=== PATIENT | male | born 1970 | race African-American/Black ===

== ENCOUNTER 2024-05-13 12:14 | Emergency (ER) | payer OTHER, SELFPAY ==
--- OUTSIDE RECORDS SUMMARY | 2024-05-13 12:18 | XMS_ITS | Referral Summary ---
Author Organization [facility] Address [address] [place] [address] Care Team Providers Care Papier Mache' Molder Name Role Phone Cody Rice APRN-BILINGUAL TEACHER AIDE Primary Care Pro vider Source Comments [facility],non-owned Affiliates and Associated Physician Practices is amultiple site organization consisting of ambulatory clinics and hospital sitesin [place], [place], [place] and [place]. This disclosure is being madepursuant to the Care Everywhere program and may not contain all information available regarding this patient. Last updated 18.[facility] Allergies No known active allergies Medications * Be aware that medications may not be up to date on this document. Alwaysverify current medications with the patient. Medication Sig Dispensed Refills Start Date End Date Status Thiamine HCl 100 MG Take by mouth DAILY. 02/12/2016 Active levETIRAcetam (KEPPRA) 500 MG tablet Take 500 mg by mouth BID. 60 tablet 3 01/15/2016 Active Additional Information Patient not taking.Reported on 11/18/2023 ibuprofen (MOTRIN) 200 MG tablet Take 200 mg by mouth q6h PRN (Pain). 01/09/2016 Active HYDROcodone-acetami nophen (Decorah) 5-325 MG tablet Take 1 (one) tablet by mouth every 6 hours as needed 11/11/2023 Active naproxen (Naprosyn) 500 MG tablet Take 1 (one) tablet by mouth 2 times daily with morning and evening meal 10/15/2023 Active citalopram (CeleXA) 20 MG tablet Take 1 (one) tablet by mouth as needed 08/29/2023 Active Active Problems Problem Noted Date Diagnosed Date Nontraumatic subdural hemorrhage 01/09/2016 Immunizations Name Administration Dates Next Due FLU VACCINE TRI IIV3 SPLIT P F IM (FLUVIRIN) 01/10/2016,03/03/2015 HIB VACCINE 02/26/2016 INFLUENZA VACCINE, QUADR. (F LUZONE; FLULAVAL; FLUARIX; AFLURIA QUADRIVALENT; 6MO+), 0.5 ML (IIV4) 01/27/2023,01/14/2023,05/24/2020,2019,03/09/2018 PNEUMOCOCCAL PCV VACCINE 11/11/2023 PNEUMOCOCCAL PPSV23 01/10/2016 TDAP (7yrs+) 11/18/2015 Td (Adult), 2 Lf Tetanus Tox oid, Adsorbed, Pf 01/02/2020 Social History Tobacco Use Types Packs/Day Years Used Date Smoking Tobacco: Former Cigars Smokeless Tobacco: Never Tobacco Cessation:Counseling Given: Not Answered Alcohol Use Standard Drinks/Week Comments Not Currently 84 (1 standard drink = 0.6 oz pu re alcohol) Sex and Gender Information Value Date Recorded Sex Assigned at Not on file Gender Identity Not on file Sexual Orientation Not on file Last Filed Vital Signs Vital Sign Reading Time Taken Comments Blood Pressure 119/58 11/18/2023 8:48 AM CDT Pulse 81 11/18/2023 8:48 AM CDT Temperature 36.7 ??C (98 ??F) 02/12/2016 11:48 AM CDT Respiratory Rate 18 01/15/2016 12:56 PM CDT Oxygen Saturation 95% 02/12/2016 11:48 AM CDT Inhaled Oxygen Concentration - - Weight 79.2 kg (174 lb 9.6 oz) 11/18/2023 8:48 A M CDT Height 175.3 cm (5' 9 ) 11/18/2023 8:48 AM CDT Body Mass Index 25.78 11/18/2023 8:48 AM CDT Plan of Treatment Not on file Procedures Procedure Name Priority Date/Time Associated Diagnosis Comments BASIC METABOLIC PANEL (CALCIUM TOTAL) Routine 01/15/2016 5:10 AM CDT from Last 3 Months or Most Recently Relevant to Health Maintenance Results * (ABNORMAL) BASIC METABOLIC PANEL (CALCIUM TOTAL) (01/15/2016 5:10 AM CDT) BUN 12 7 - 26 mg/dL [facility] Creatinine 1.1 0.6 - 1.2 mg/dL [facility] Sodium 142 136 - 145 mmol/L [facility] Potassium 3.9 3.5 - 4.5 mmol/L [facility] Chloride 111(H) 98 - 107 mmol/L [facility] CO2 24 22 - 29 mmol/L [facility] Glucose 92 70 - 115 mg/dL [facility] Calcium 10.0 8.4 - 10.2 mg/dL [facility] Anion Gap 11 8 - 18 [facility] BUN/Creatinine Ratio 11 7 - 23 [facility] Osmolality Calculated 293 270 - 300 mOsm/kg [facility] eGFR >60 >60 mL/min/1.7 3 m2 [facility] Blood specimen (specimen) BLOOD SPECIMEN / Unknown 01/15/2016 5:10 AM CDT 01/15/2016 5:15 AM CDT Jose A Marlow MD LAB - CHEMISTRY ORD ERABLES [facility] [address] [phone] from Last 3 Months or Most Recently Relevant to Health Maintenance Administered Medications Care Teams Papier Mache' Molder Relationship Specialty Start Date End Date Cody Rice, REPAIR ELECTRIC MOTOR ASSEMBLER-BILINGUAL TEACHER AIDE [address] [address] PCP - General Nurse Practitioner 11/18/23
--- OUTSIDE RECORDS SUMMARY | 2024-05-13 12:19 | XMS_ITS | Patient Health Record ---
Author Organization [facility] Address [address] [place] [address] Care Team Providers Care Estimate Clerk Name Role Phone Carolina Edmonds Primary Care Provider Raj Cavazos Unavailable [phone] Joao Jj Unavailable [phone] Jazmin Erazo Unavailable [phone] Maximus Childs Unavailable [phone] Caro Zarate Unavailable [phone] Allergies Allergen (clinical drug ingredient) Drug/Non Drug Allergy documented on EMR Reaction Allergy Type Onset Date Status No Known Drug Allergy Unknown Drug Allergy Active Results Component Value Reference Range Notes QuantiFERON-TB Gold Plus Reviewed date:04/30/2024 12:16:27 PM Interpretation:Negative Performing Lab:[facility], [address] [facility], Phone - [phone], Director - Ricsteffanie Notes/Report: QuantiFERON Incubation Incubation performed. QuantiFERON-TB Gold Plus Negative Negative No response to M tuberculosis antigens detected. Infection with M tuberculosis is unlikely, but high risk individuals should be considered for additional testing (ATS/IDSA/CDC Clinical Practice Guidelines, 2017). The reference range is an Antigen minus Nil result of <0.35 IU/mL. Chemiluminescence immunoassay methodology QuantiFERON Criteria QuantiFERON-TB Gold Plus is a qualitative indirect test for M tuberculosis infection (including disease) and is intended for use in conjunction with risk assessment, radiography, and other medical and diagnostic evaluations. The QuantiFERON-TB Gold Plus result is determined by subtracting the Nil value from either TB antigen (Ag) value. The Mitogen tube serves as a control for the test. QuantiFERON TB1 Ag Value 0.00 QuantiFERON TB2 Ag Value 0.00 QuantiFERON Nil Value 0.00 QuantiFERON Mitogen Value >10.00 Reason For Referral Reason Homeless and needs r esources. States that he has trouble getting to the pharmacy to burr picker his medications. Preferred [phone] Diagnosis 1 Bipolar 2 disorder ( F31.81) Referral Organization [facility] Referring Provider First Name Carolina Referring Provider Last Name Kendal Referring Provider Speciality Psychiatry Referred Provider Specialty [facility] Clinical Notes [facility] 06/16/2023 02:09:02 PM >HN PW attempted to contact consumer regarding referral. VM left requesting a return call., Melanie Lofton 06/17/2023 01:27:17 PM > Staff SHERIDAN attempts to contact Consumer. No reply at this time., Marine Do 06/20/2023 10:55:25 AM >HN PW attempted to contact consumer regarding referral. Received following message, Diana, mailbox is full. , Juan José Salvador 06/21/2023 11:08:44 AM >Client was unable to be reached, no option to leave a voicemail. Client is listed as homeless so a letter is not able to be sent., Melanie Lofton 06/23/2023 01:40:00 PM >Staff SHERIDAN attempts to contact Consumer with both numbers on file. No reply at this time. Message left. If no reply is obtained by 2 weeks time from June 19, referral will be closed on July 03., Juan José Salvador 06/28/2023 01:18:56 PM >Client was unable to be reached at both numbers listed, left a voicemail., , [facility] 06/30/2023 09:14:55 AM >Attempt to contact Consumer. Unable to reach Consumer at this time. Referral Priority Routine Reason screening Colonoscop y Diagnosis 1 Encounter for screen ing for malignant neoplasm of colon (Z12.11) Diagnosis 2 Contact with and (madrid spected) exposure to other communicable diseases (Z20.89) Referral Organization [facility] Referring Provider First Name Joao Referring Provider Last Name Jj Referring Provider Speciality Internal M edicine Referred Provider Specialty Gastroentero logy General Notes Samia Eldridge 12/2023 11:28:58 AM > Referral to [facility]., Samia Eldridge 08/25/2023 11:32:43 AM > letter unable to be mailed due to homeless status, Samia Eldridge 08/26/2023 08:05:09 AM >Returned not in network. Insurance updated, refaxed. Clinical Notes [facility], [facility], [address], [place] [address], , Referral Priority Routine Medications Medication SIG (Take, Route, Frequency, Duration) Notes Start Date End Date Status traMADol HCl 50 MG 1 tablet as needed Orally every 8 hours Active hydrOXYzine HCl 25 MG two tablets Orally every 4 hours as needed for 30 days Active Acetaminophen 160 MG/5ML 20 ML Orally every 4 hours for 15 days As needed for pain on unit 05/03/2024 Active Multivitamin - 1 tablet Orally Once a day for 30 days Active Citalopram Hydrobromide 20 MG 1 tablet Orally Once a day for 30 days Active OLANZapine 10 MG 1 tablet Orally Once a day for 30 days Active traZODone HCl 50 MG 1 tablet at bedtime as needed Orally Once a day for 30 days Active Melatonin 5 MG 1 tablet in the even ing Orally Once a day for 30 days Active Social History Tobacco Use: Social History Observation Description Date Details (start date - stop date) Never Smoker NA - NA Sex Assigned At : Social History Observation Description Sex Assigned At Male Dont use, Tobacco Use/Smoking Question Answer Notes Are you a current smoker PRAPARE Question Answer Notes Are you a refugee? No What country are you from? [place] Date Completed/Updated: 08/17/2023 What is your current housing situation? I do not have housing (staying with others, in a hotel, in a senior living, living outside on the street, on a beach, or in a park) Are you worried about losing your housing? Yes What is the highest level of school that you have finished? High school diploma or GED What is your current work situation? Oth erwise unemployed but not seeking work (ex. 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 Check all that apply Clothing,Food Has lack of transportation k ept you from medical appointments, meetings, work or from getting things needed for daily living? Yes, it has kept me from medical appointments or from getting my medications,Yes, it has kept me from non-medical meetings, appointments, work, or getting things needed for daily living How often do you see or talk to people that you care about and feel close to? (For example: talking to friends on the phone, visiting friends or family, going to amish or club meetings) More than 5 times a week How stressed are you? Stress is when someone feels tense, nervous, anxious, or can\t sleep at night because their mind is troubled Very much In the past year have you sp ent more than 2 nights in a row in a [place] [facility], [facility], [facility], or juvenile correctional facility? Yes Do you feel physically and e motionally safe where you currently live? No In the past year, have you b een afraid of your partner or ex-partner? No What was your release date? 11/17/2023 PRAPARE Score: 1 Tobacco Control (Standard) Question Answer Notes Tobacco use: Nonsmoker Problems Problem Type SNOMED Code ICD Code Onset Dates Problem Status W/U Status Risk Notes Problem Malignant tumor of larynx (600827301) Malignant neoplasm of larynx, unspecified (C32.9) Active confirmed Problem Otitis externa (2529270) Otitis externa (H60.90) Active confirmed Problem Bipolar 2 disorder (64467616) Bipolar 2 disorder (F31.81) 04/27/19 25 Active confirmed Problem Disorder caused by alcohol (disorder) (539001830) Alcohol use disorder (F10.99) 04/27/19 25 Active confirmed vs alcohol induced mood disorder Problem 12148197 Depression, unspecified depression type (F32.9) Active confirmed Problem [id number] Obesity (BMI 30.0-34.9) (E66.9) Active confirmed Problem Tobacco use (260755385) Tobacco use disorder (F17.200) Active confirmed Problem 12784975 Hypertension, unspecified type (I10) 11/08/19 18 Active confirmed Vital Signs Heart Rate 103 /min 04/26/2024 Respiratory Rate 18 /min 04/26/2024 Blood pressure diastolic 74 mm Hg 04/26/2024 Oximetry 96 % 04/26/2024 Height 69 in 04/26/2024 Blood pressure systolic 106 mm Hg 04/26/2024 Weight 145 lb 2 oz lbs 04/26/2024 BMI 21.43 kg/m2 04/26/2024 Encounters Encounter Location Date Provider Diagnosis [facility] [address] [place] [address] 06/16/2023 Carolina Edmonds Bipolar 2 disorder F31.81 [facility] [address] [place] [address] 08/17/2023 Raj Cavazos Nutritional counseling Z71.3 ; Routine physical examination Z00.00 and Overweight E66.3 [facility] [address] [place] [address] 08/17/2023 [facility] [place] [address] 08/18/2023 Carolina Edmonds Bipolar 2 disorder F31.81 [facility] [address], [place] [address] 09/01/2023 [facility] [place] [address] 04/26/2024 Caro Zarate Adult general medical exam Z00.00 ; Alcohol use disorder F10.99 and Malignant neoplasm of larynx, unspecified C32.9 [facility] [address], [place] [address] 04/27/2024 Maximus Childs Alcohol use disorder F10.99 and Bipolar 2 disorder F31.[address] [place] [address] 08/17/2023 Joao Jj Encounter for screening for malignant neoplasm of colon Z12.11 and Contact with and (suspected) exposure to other communicable diseases Z20.[address] [place] [address] 08/25/2023 [facility]min [facility] [address] [place] [address] 09/13/2023 [facility] [address] [place] [address] 09/14/2023 [facility] [address] [place] [address] 09/19/2023 Jazmin [facility] [address] [place] [address] 09/21/2023 [facility] [address] [place] [address] 09/29/2023 [facility] [address] [place] [address] 10/05/2023 [facility]az[facility] [place] [address] [place] [address] 10/18/[address] [facility] [place] [address] 11/17/2023 [facility] [address], [place] [address] 04/27/2024 Maximus Childs [place] [address] [place] [address] 05/03/2024 Caro Short Throat pain R07.0 Assessments Encounter Date Diagnosis (ICD Code) Assessment Notes Treatment Notes Treatment Clinical Notes Section Notes 05/03/2024 Throat pain (ICD-10 - R07.0) 04/27/2024 Bipolar 2 disorder (ICD-10 - F31.81) 04/27/2024 Alcohol use disorder (ICD-10 - F10.99) vs alcohol induced mood disorder Today's visit: Patient is a 54-year-old male who presents for a psychiatric follow-up over Zoom and is located in [place], is a transfer Dr. Carolina Edmonds [facility] and during this appt was continued on Trazodone 50 mg PRN, melatonin 5 m PRN, Olanzapine 10 mg, Celexa 20 mg, and hydroxyzine. PHQ-9 score of 6, ROSHAN-7 score of 3, MDQ with 8 yes. Currently prescribed same medications. Reports depressive symptoms in the setting of medical diagnosis as well as ongoing alcohol use disorder. Reports prevoius AH related to tumor news, pt appears to be a fair historian and may be evasive with some questions but will attempt to clarify diagnoses during future appts. Will continue current medications as prescribed, pt does not wish to make any changes. Encourage engagement in residential alcohol use treatment following CRU. Collaborating with medical provider Caro zarate regarding tramadol for increased risk of sertonin syndrome; he denies any sx presently or side effects from medications - will continue to monitor. Unable to complete full AIMS due to nature of appt, denies any irregular muscle movements or facial tics; no irregular movements observed during Zoom appt. No acute safety concerns the time of this appt, he is agreeable to treatment plan and was provided an opportunity to ask questions. May self-administer medications or be administered own oral medications per [facility] protocols. Provided informed consent with understanding of side effects, adverse effects, risks and benefits as well as alternative treatments as previously discussed and with the above recommended medications & other aspects of the treatment program. Agrees to return sooner if symptoms worsen or suicidal or homicidal ideations occur. 04/26/2024 Alcohol use disorder (ICD-10 - F10.99) 04/26/2024 Adult general medical exam (ICD-10 - Z00.00) 06/16/2023 Bipolar 2 disorder (ICD-10 - F31.81) 08/18/2023 Bipolar 2 disorder (ICD-10 - F31.81) Continue current medications. Continue services as scheduled. Labs completed recently. May self-administer medications or be administered own oral medications per [facility] protocols. Provided informed consent with understanding of side effects, adverse effects, risks and benefits as well as alternative treatments as previously discussed and with the above recommended medications & other aspects of the treatment program. Agrees to return sooner if symptoms worsen or suicidal or homicidal ideations occur. 08/17/2023 Routine physical examination (ICD-10 - Z00.00) Continue CRU protocol. Encouraged regular f/u with PCP for recommended screenings and physicals. 08/17/2023 Nutritional counseling (ICD-10 - Z71.3) 08/17/2023 Encounter for screening for malignant neoplasm of colon (ICD-10 - Z12.11) 08/17/2023 Contact with and (suspected) exposure to other communicable diseases (ICD-10 - Z20.89) 08/17/2023 Overweight (ICD-10 - E66.3) 04/26/2024 Malignant neoplasm of larynx, unspecified (ICD-10 - C32.9) 08/17/2023 Other Provided case management services to address social determinants of health needs and reduce barriers to health care services. 04/26/2024 Other Continue treatment as recommended by [facility] staff. Encouraged patient to obtain routine medical care with patient's own primary care provider or establish as a patient at [facility] if no current primary care provider. Plan Of Treatment Future Test Test Name Order Date Hemoglobin A1c* 04/27/2024 Lipid Panel w/ Chol/HDL Ratio 04/27/2024 CMP 14 Comprehensive Metabolic Panel* CBC w/DIFF 04/27/2024 Insurance Providers Payer Name Payer Address Payer Phone Subscriber Number Group Number Insured Name Patient Relationship to Insured Coverage Start Date Coverage End Date [facility] [address] [place] [address] [id number] Mario Linares Self - patient is the insured 0 [employer] A[employer] Medicare [address] [address] [place] [address] [id number] [facility] Mario Linares Self - patient is the insured 4 4 Medical (General) History Medical History History ICD Code Depression Bipolar disorder hypertension hyperlipidemia Surgical History Surgery Date(Month/Year) Groin hernia repair 1992 Biopsy on throat 07/2023 Hospitalization History Reason Date(Month/Year) [facility] 07/2023 CRU 02/2022 head injury - [facility] healthcare for 9 months 01/2016 suicidal ideations 03/2017
--- OUTSIDE RECORDS SUMMARY | 2024-05-13 12:19 | XMS_ITS | CONTINUITY OF CARE DOCUMENT ---
Author Name felicita mims Address Unknown Organization [facility] Address [address] [place] [address] Phone [phone] Care Team Providers Care Interdisciplinary Professor Name Role Phone Aga NAQVI, Andrea Unavailable INSURANCE PROVIDERS Payer name Policy type / Coverage type Macy red republican [employer] Medicaid 0 [id number]
--- OUTSIDE RECORDS SUMMARY | 2024-05-13 12:19 | XMS_ITS | Encounter Summary ---
Author Organization [facility] Address [address] [place] [address] Phone Care Team Providers Care Musical Instrument Supervisor Name Role Phone Lauro Peck MD Unavailable [phone] Julian Fitch MD Unavailable [phone] Cody Rice APRN, BRIM PRESSER Primary Care Pr ovider Bassem Newman MD Unavailable Danni Babb Unavailable Unavailable Encounter Details Date Type Department Care Team (Late st Contact Info) Description 04/17/2024 Results Follow-Up [facility] [address] [place] [address] Lorne Hazel RN [place] Social History Tobacco Use Types Packs/Day Years Used Date Smoking Tobacco: Some Days Cigars Smokeless Tobacco: Never Alcohol Use Standard Drinks/Week Comments Yes 0 (1 standard drink = 0.6 oz pure alcohol) say's he bindges and drinks too much from time to time [facility] Utilities Answer Date Recorded In the past 12 months has Social IQ (Social Influence Quotient) electric, gas, oil, or water company threatened to shut off services in your home? No 12/28/2023 Social Connection and Isolat ion Panel [NHANES] Answer Date Recorded In a typical week, how many times do you talk on the phone with family, friends, or neighbors? Twice a week 12/28/2023 How often do you get togethe r with friends or relatives? Twice a week 12/28/2023 How often do you attend chur ch or faith services? More than 4 times per year 12/28/2023 Do you belong to any clubs o r organizations such as restorationist groups, unions, fraternal or athletic groups, or school groups? No 12/28/2023 How often do you attend meet ings of the clubs or organizations you belong to? Never 12/28/2023 Are you , , di vorced, , never , or living with a partner? Never 12/28/2023 AUDIT-C Answer Date Recorded Q1: How often do you have a drink containing alc ohol? 2-4 times a month 12/28/2023 Q2: How many drinks containi ng alcohol do you have on a typical day when you are drinking? 3 or 4 12/28/2023 Q3: How often do you have si x or more drinks on one occasion? Less than monthly 12/28/2023 Overall Financial Resource Strain (CARDIA) Answe r Date Recorded How hard is it for you to pa y for the very basics like food, housing, medical care, and heating? Somewhat hard 12/28/2023 PHQ-2 Answer Date Recorded Total Score - Questions 1-9 0 12/17 [facility] - Occupational Stress Questionnaire Answer Date Recorded Do you feel stress - tense, restless, nervous, or anxious, or unable to sleep at night because your mind is troubled all the time - these days? To some extent 12/28/2023 Exercise Vital Sign Answer Date Recorde d On average, how many days pe r week do you engage in moderate to strenuous exercise (like a brisk walk)? 3 days 12/28/2023 On average, how many minutes do you engage in exercise at this level? 20 min 12/28/2023 Hunger Vital Sign Answer Date Recorded Within the past 12 months, y ou worried that your food would run out before you got the money to buy more. Sometimes true Within the past 12 months, t he food you bought just didn't last and you didn't have money to get more. Sometimes true 02/2024 PRAPARE - Transportation Answer Date Re corded In the past 12 months, has l ack of transportation kept you from medical appointments or from getting medications? Yes 12/17 In the past 12 months, has l ack of transportation kept you from meetings, work, or from getting things needed for daily living? Yes 12/28/2023 Housing Stability Vital Sign Answer Homer e Recorded In the last 12 months, was t here a time when you were not able to pay the mortgage or rent on time? Yes 06/13/2023 In the last 12 months, how many places have you lived? 5 06/13/2023 In the last 12 months, was t here a time when you did not have a steady place to sleep or slept in a chcf (including now)? Yes 06/13/2023 Housing Stability Vital Sign Answer Homer e Recorded In the last 12 months, was t here a time when you were not able to pay the mortgage or rent on time? Yes 12/28/2023 In the past 12 months, how m any times have you moved where you were living? 3 12/28/2023 At any time in the past 12 m [facility], were you homeless or living in a chcf (including now)? Yes 12/28/2023 Sexually Active Control Partners Comments Not Currently Sex and Gender Information Value Date Recorded Sex Assigned at Male 12/03/2023 4:33 AM CDT Legal Sex Male 8:47 PM CDT Gender Identity Male 12/03/2023 4:33 AM CDT Sexual Orientation Not on file documented as of this encounter Plan of Treatment Upcoming Encounters Date Type Department Care Team (Latest Contact Info) Description 05/14/2024 2:30 PM BACK OFFICE MEDICAL ASSISTANT [facility] [address] [place] [id number] Paulina Forde, WINDOWS SUPPORT ENGINEER, BRIM PRESSER [address] [place] [address] Discharge Disposition: Discharged to home or Selfcare 05/17/2024 1:45 PM BACK OFFICE MEDICAL ASSISTANT Physical Therapy [facility] [address], [address] [place] [phone] Kaylen Iglesias, PT [place] Discharge Disposition: Discharged to home or Selfcare documented as of this encounter Goals Goal Patient Goal Type Associated Problems Recent Progress Patient-Stated? Author Make and Keep All Appointments Patient Goals On track( 9:13 AM CDT) Lia Chavez LSW Note: Follow Up Date week of 03/21/2024 - arrange a ride through an agency 1 week before appointment - ask family or friend for a ride - keep a calendar with appointment dates SW CM will help patient obtain Free Ride Bus Pass for [facility] [employer] Why is this important? Part of staying healthy is seeing the doctor for follow-up care. If you forget your appointments, there are some things you can do to stay on track. Notes: ACP visit Patient Goals On track( 9:13 AM CDT) Lia Chavez LSW Note: Follow Up Date Month of 04/10 - complete a living will - name a health care proxy (decision maker) Discusses wishes with my loved ones Notify Care Management when ready to schedule ACP appointment Why is this important? Having a long-term illness can be scary. It can also be stressful for you and your caregiver. These steps may help. Notes: documented as of this encounter Visit Diagnoses Not on filedocumented in this encounter Additional Health Concerns Assessment Noted Time PHQ-9 Depression Total Score: 0 12/28/19 9:51 AM CDT documented as of this encounter Care Teams Musical Instrument Supervisor Relationship Specialty Start Date End Date Cody Rice APRN, BRIM PRESSER [address] [address] PCP - General Advanced Practice Nurse 11/10/23 Lauro Peck MD [address] [place] [address] Consulting Physician Medical Oncology 10/27/23 Julian Fitch MD [address] [place] [address] Consulting Physician Radiation Oncology 10/27/23 Bassem Newman MD [address] [place] [address] Consulting Physician Otolaryngology & Facial Plastic Surgery 11/14/23 Danni Babb [facility] Med Spec 04/10/24 documented as of this encounter
--- OUTSIDE RECORDS SUMMARY | 2024-05-13 12:19 | XMS_ITS | Continuity of Care Document ---
Author Organization [facility] Address [address] [place] [address] Phone Care Team Providers Care Diagnostic Sales Specialist Name Role Phone Eh MANAGER DEMANDSingh Tellon Unavailable Unavailable Allergies, Adverse Reactions, Alerts Substance Reaction Status Criticality No Known Allergies Active No Inform ation Procedures Procedure Date COLLECTION OF VENOUS BLOOD BY VENIPUNCTU RE OFFICE/OUTPATIENT VISIT, NEW Advance Directives Directive Yes / No Effective Date File Name No Information Encounters Encounter Description Practice Location Reason(s) For Visit Diagnoses Date Provider Providers Copied on Encounter [facility], [address], [place], [place], [id number] , tel: [phone] [facility] [place] No Information 4 Eh Nichols. [address], [place], [place], [address], . tel:[phone] [facility], [address], [place], [place], [address] , tel: [phone] [facility] [place] No Information 3 Eh Nichols. [address], [place], [place], [address], [place]. tel:[phone] Referring Provider: Magdalena Stauffer, [address], [place], [address]. tel:[phone] OFFICE/OUTPA TIENT VISIT, NEW [facility], [address], [place], [place], [id number] , tel: [phone] [facility] Care (chief complaint) Thyroid problems (chief complaint) Encounter for screening for malignant neoplasm of colonEncounter for screening for malignant neoplasm of prostateEncounte r for screening for other disorderEncounte r for adult health check-upBody mass index (BMI) 29.0-29.9, adult 3 Eh Magdalena. [address], [place], [place], [address], [place]. tel:[phone] Consulting Provider: Magdalena Stauffer, [address], [place], [address]. tel:[phone] [facility], [address], [place], [place], [address] , [place] tel:[phone] Care Guidelines 1 No Information Family History Family Member Type Diagnosis Age At Onset No Information Payers Payer name Insurance type Covered green party ID Authoriza tion(s) No Information Social History Type Description Quantity Date Captured Comments Sex Male Smoking Status No Information Chief Complaint And Reason For Visit No Information Reason For Referral Reason For Referral No Information Plan Of Treatment Date Type Action Status Goal Tobacco cessation counseling completed Future Order: Lab Order FIT/Hemo sure ([id number]), Scheduled for: Ordered Nutrition Recommendation Nutrition therap y completed History Of Present Illness Encounter Date Complaint History Of Prese nt Illness Establish Care Establish Care - PCP - [facility] - LAST SEEN MONTH-2 MONTHS.REFERRED BY [facility] PMH: DEPRESSION & BIPOLAR DISORDER, THYROID OVERACTIVE THYROID MEDS: CELEXA ALLERGIES: NKDA SOCIAL: OCCASIONAL - USE TO SMOKE CIGARETTES, MAYBE 2-3 CIGS/DAY NORMALLY SMOKEKS CIGARSSURIGICAL HX: GROIN REPAIR SURGERY X 3 FAMILY HX: MOTHER - HEART ATTACK - 42 Y/O. FATHER - ALIVE WELL - 75 Y/O. 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. MAT: - ETOH - ANTONINO'S HARD LEMONADE & VODKA - BINGES & DON'T COUNT AVG DAILY USE: 4 - ANTONINO'S LEMONADE 24 OZ CANS & VODKA LAST DRINK: 'BEFORE i WENT [facility] Thyroid problems Presenting symp toms include dysphagia, fatigue, hoarseness, intolerance to cold and intolerance to heat. Presenting symptoms do not include increased perspiration, insomnia, rapid heart beat, skin and nail changes, tremor and rapid growth of nodule. Risk factors include age. Functional Status Date Functional Assessmen t No Information Instructions Date Instruction Additional Infor aman Encouraged Dental and Vision Exa ms Related to Encounter for adult health check-up Assessments Type Assessment Date No Information Patient Care Teams Name Effective Dates (start - stop) Status Members No Information
--- OUTSIDE RECORDS SUMMARY | 2024-05-13 12:19 | XMS_ITS ---
Author Organization [facility] Address [address] [place] [address] Care Team Providers Care Environmental Engineering Intern Name Role Phone Carolina Edmonds Primary Care Provider Maximus Childs [phone] REASON FOR VISIT medications Social History Sex Assigned At : Social History Observation Description Sex Assigned At Male Encounters Encounter Location Date Provider Diagnosis [facility] [address] [place] [address] 04/27/2024 Maximus Childs Plan Of Treatment No Information Progress Notes * Mario LINARESDOB:1970 (54 yo M)Acc No.[id number]:04/27/2024 Patient:?VIJAY Mario :1970???Age:54 Y???Sex:Male Address:[place], [place], [facility] * true * Date:? Generated for Benny meyers/Artemio/eTransmitting on:?05/13/2024 12:19 PM CEMETERY VAULT INSTALLER
--- OUTSIDE RECORDS SUMMARY | 2024-05-13 12:19 | XMS_ITS | Encounter Summary ---
Author Organization [facility] Address [address] [place] [address] Care Team Providers Care Receiving Teller Name Role Phone Cody Rice APRN-SHAKE OUT WORKER Primary Care Pro vider Encounter Details Date Type Department Care Team (Late st Contact Info) Description 11/18/2023 [facility] [address] [place] [address] Bassem Newman MD [address] [place] [address] Illness, unspecified Social History Tobacco Use Types Packs/Day Years Used Date Smoking Tobacco: Former Cigars Smokeless Tobacco: Never Alcohol Use Standard Drinks/Week Comments Not Currently 84 (1 standard drink = 0.6 oz pu re alcohol) Sex and Gender Information Value Date Recorded Sex Assigned at Not on file Gender Identity Not on file Sexual Orientation Not on file documented as of this encounter Plan of Treatment Not on file documented as of this encounter Procedures Procedure Name Priority Date/Time Associated Diagnosis Comments PATH CONSULT ON REFERRED CASE Routine 11/18/2023 9:02 AM CDT Illness, unspecified documented in this encounter Results * PATH CONSULT ON REFERRED CASE (11/18/2023 9:02 AM CDT) Final Diagnosis Larynx, biopsy ([facility]: [id number]; 08/12/2023 ): - Squamous cell carcinoma, invasive, moderately differentiated 12/02/2023 3:11 PM CDT [facility] Microscopic Description and Comment Microscopic examination substantiates the final diagnosis. The focal complexity of architecture is sufficient for a diagnosis of invasive squamous cell carcinoma, although there is also a large amount of [id number]. This specimen was submitted as larynx , and therefore no p16 stain was performed 12/02/2023 3:11 PM [facility] Clinical History 53 year old man with large supraglottic / base of tongue mass emanating from the vallecula . 12/02/2023 3:11 PM [facility] Materials Received Received are 3 H and E stained slide(s) labeled [id number] along with a copy of the outside pathology report. [place] [address]. All original materials are returned to the referring institution, along with a copy of our final report. 12/02/2023 3:11 PM [facility] Addendum 1 Immunohistochemistry for p16 is negative in lesional cells with appropriately reactive on slide positive control. 12/02/2023 3:11 PM [facility] Addendum electronically signed by Loren Mendoza MD on 12/02/2023 at 3:10 PM Pathologist Location at [facility] 12/02/2023 3:11 PM [facility] Disclaimer The performance characteristics of all immunohistochemical and indirect immunofluorescence stains (if any) cited in this report were determined by the Histopathology Laboratory of [facility]. Some of these tests were developed by our own laboratory and have not been cleared or approved by the US Food and Drug Administration. The FDA does not require this test to go through premarket FDA review. These tests are used for clinical purposes. They should not be regarded as investigational or for research. This laboratory is certified under the Clinical Laboratory Improvement Amendments (CLIA) as qualified to perform high complexity clinical laboratory testing. This case has been personally reviewed and interpreted by the attending (teaching) pathologist. 12/02/2023 3:11 PM [facility] Case Report Surgical Pathology Report ? Case: [id number] ? Authorizing Provider: ??Bassem Newman MD ?Collected: ? 11/18/2023 09:02 AM ? Ordering Location: ? [facility] - ??Received: ?11/18/2023 09:02 AM ? Pathology Lab ? Pathologist: ? Afshan Enamorado MD ? Specimen: ?Slide Consultation ? 12/02/2023 3:11 PM CDT [facility] Embedded Images 12/02/2023 3:11 PM CDT [facility] Pathology/Cytolo gy SURGICAL PATHOLOGY CONSULTATION AND REPORT ON REFERRED SLIDES PREPARED ELSEWHERE / Unknown 11/18/2023 9:02 AM CDT 11/18/2023 9:02 AM CDT Bassem Newman MD LAB - PATHOLOGY/CYTO LOGY ORDERABLES [facility] [address] [facility] [place] [address], [facility] [phone] documented in this encounter Visit Diagnoses Diagnosis Illness, unspecified documented in this encounter Care Teams Receiving Teller Relationship Specialty Start Date End Date Cody Rice APRN-RONAL [address] [place] [address] PCP - General Nurse Practitioner 11/18/23 documented as of this encounter
--- OUTSIDE RECORDS SUMMARY | 2024-05-13 12:19 | XMS_ITS ---
Author Organization [facility] Address [address] [place] [address] Phone Care Team Providers Care Chemical Analyst Name Role Phone Lauro Peck MD Unavailable [phone] Julian Fitch MD Unavailable [phone] Cody Rice APRN, [facility] Primary Care Pr ovider Bassem Newman MD Unavailable [phone] Danni Babb Unavailable Unavailable Ambulatory Complex Care Management Status:Enrolled (Active) Start date:06/10/2023 Enrollment date:06/13/2023 Enrollment reason:Identified using referral data Current support & services provided:Paint Roller Covermaker Care Managed Related social drivers of health:Intimate Partner Violence, Social Connections, Alcohol Use, Tobacco Use, Financial Resource Strain,Stress, Physical Activity, Food Insecurity, Transportation Needs, Housing Stability, Utilities Case Team Name Relationship Phone Danni Babb Health Internet Assessor Continued Care and Services Coordination
--- OUTSIDE RECORDS SUMMARY | 2024-05-13 12:19 | XMS_ITS ---
Author Organization [facility] Address Unknown Problems Problem Status Start Date End Date NONTRAUMATIC ACUTE SUBDURAL HEMORRHAGE (I62.01 - ICD-10-CM) ACTIVE 01/23/2016 ESSENTIAL (PRIMARY) HYPERTENSION (I10 - ICD-10-CM) ACT LUIS 01/23/2016 OTHER SEIZURES (G40.89 - ICD-10-CM) ACTIVE 01/22 NONTRAUMATIC HEMATOMA OF SOFT TISSUE (M79.81 - ICD-10- CM) ACTIVE 01/23/2016 OTHER LACK OF COORDINATION (R27.8 - ICD-10-CM) ACTIVE 01/26/2016 MUSCLE WEAKNESS (GENERALIZED) (M62.81 - ICD-10-CM) ACT LUIS 01/26/2016 FAMILY HISTORY OF ALCOHOL AB USE AND DEPENDENCE (Z81.1 - ICD-10-CM) ACTIVE 01/23/2016 Encounters Encounter Performer Performer Role Encounter Diagnoses Location Date Leave - Discharged to home or self care - Home - Private home/apt. with no home health services [facility] 01/23/2016 05:53 pm EDT - 03/19/2016 01:00 am EST Discharge - Discharged / Transferred to SNF - Senior Living Facility [facility] 03/20/2016 01:00 am EST - 04/26/2016 01:18 pm EST Immunizations Vaccine Date Influenza 02/09/2016 01:00 am EDT TB 2 Step Mantoux Skin Test 02/26/2016 0 1:00 am EST TB 1 Step Mantoux (PPD) 02/12/2016 01:00 am EDT Social History
--- OUTSIDE RECORDS SUMMARY | 2024-05-13 12:19 | XMS_ITS | Clinical Summary ---
Author Organization [facility] Address [address] [facility] [place] [address] Care Team Providers Care Health Information Director Name Role Phone Cody Rice APRN-MOTH EXTERMINATOR Primary Care Pro vider Source Comments [facility],non-owned Affiliates and Associated Physician Practices is amultiple site organization consisting of ambulatory clinics and hospital sitesin [place], [place], [place] and [place]. This disclosure is being madepursuant to the Care Everywhere program and may not contain all information available regarding this patient. Last updated 18.[facility] Allergies No known active allergies Medications * [...] q6h PRN (Pain). 01/09/2016 Active HYDROcodone-acetami nophen (Tridell) 5-325 MG tablet Take 1 (one) tablet [...] Lf Tetanus Tox oid, Adsorbed, Pf 01/02/2020 Family History Medical History Relation Name Comments None Known Father Status: Alive Cancer Maternal Grandmother Heart Disease Mother Status: Deceas ed Relation Name Status Comments Father Maternal Grandmother Mother Social History Tobacco Use Types Packs/Day Years [...] 11/18/2023 8:48 AM CDT Plan of Treatment Health Maintenance Due Date Last Done Comments COLOGUARD (AGES 45-75) - COLON CA SCREENING 1968 COLON MONITORING 1968 COLONOSCOPY - COLON CA SCREENING 1968 CT COLONOGRAPHY - COLON CA SCREENING 1970 Colorectal Cancer Screening 1970 FIT - COLON CA SCREENING 1968 FLEX SIG - COLON CA SCREENING 1968 LIPID TESTING 1970 HIV SCREENING 02/21/1983 HEPATITIS C SCREENING 02/17/1986 HEPATITIS B VACCINE (1 of 3 - 19+ 3-dose series) 02/21/1987 ZOSTER VACCINE (1 of 2) 02/21/2018 SCREENING FOR DIABETES 11/18/2023 6, 01/14/2016, 01/13/2016, Additional history exists COVID-19 VACCINE (2 - season) 2023 12/25/2020 INFLUENZA VACCINE (#1) 2023 3, 01/14/2023, 05/24/2020, Additional history exists DEPRESSION SCREENING 04/18/2024 PNEUMOCOCCAL VACCINE 50+ (3 of 3 - PCV20 or PCV21) 11/10/2028 11/11/2023, 01/10/2016 DTAP/TDAP/TD VACCINES (3 - Td or Tdap) 01/01/2030 01/02/2020, 11/18/2015 HIB VACCINE Aged Out 02/26/2016 No longer eligi ble based on patient's age to complete this topic PNEUMOCOCCAL VACCINE Aged Out 11/11/2023, 01/10/20 16 No longer eligible based on patient's age to complete this topic HPV VACCINE Aged Out No longer eligi ble based on patient's age to complete this topic MENINGOCOCCAL (Group B) VACCINE Aged Out No longer eligible based on patient's age to complete this topic MENINGOCOCCAL VACCINE Aged Out No sharla dania eligible based on patient's age to complete this topic Procedures Procedure Name Priority Date/Time Associated Diagnosis Comments BASIC METABOLIC PANEL (CALCIUM TOTAL) Routine 01/15/2016 5:10 AM CDT from Last 3 Months or Most Recently Relevant to Health Maintenance Results * (ABNORMAL) BASIC METABOLIC PANEL (CALCIUM TOTAL) (01/15/2016 5:10 AM CDT) BUN 12 7 - 26 mg/dL [facility] Creatinine 1.1 0.6 - 1.2 mg/dL [facility] Sodium 142 136 - 145 mmol/L [facility] Potassium 3.9 3.5 - 4.5 mmol/L [facility] Chloride 111(H) 98 - 107 mmol/L [facility] CO2 24 22 - 29 mmol/L [facility] Glucose 92 70 - 115 mg/dL [facility] Calcium 10.0 8.4 - 10.2 mg/dL [facility] Anion Gap 11 8 - 18 [facility] BUN/Creatinine Ratio 11 7 - 23 [facility] Osmolality Calculated 293 270 - 300 mOsm/kg [facility] eGFR >60 >60 mL/min/1.7 3 m2 [facility] Blood specimen (specimen) BLOOD SPECIMEN / Unknown 01/15/2016 5:10 AM CDT 01/15/2016 5:15 AM CDT Jose A Marlow MD LAB - CHEMISTRY ORD ERABLES Performing Organization Address City/State/[facility] Co de Phone Number [facility] [address] [phone] from Last 3 Months or Most Recently Relevant to Health Maintenance Care Teams Health Information Director Relationship Specialty Start Date End Date Cody Rice APRN-MOTH EXTERMINATOR [address] [address] PCP - General Nurse Practitioner 11/18/23
--- OUTSIDE RECORDS SUMMARY | 2024-05-13 12:19 | XMS_ITS | Continuity of Care Document ---
Author Name Tadeo Grayson Address [address] [facility] [address] [place] [address] Organization Unknown Address [address] [facility] [address] [place] [address] Problems No known problems
--- OUTSIDE RECORDS SUMMARY | 2024-05-13 12:19 | XMS_ITS ---
Author Organization 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 09/17/2016 01:30 pm EDT - 10/13/2016 02:01 am EDT Social History
--- OUTSIDE RECORDS SUMMARY | 2024-05-13 12:19 | XMS_ITS | Continuity of Care Document ---
Author Name Tadeo Grayson Address [address] [place] [address] Organization Unknown Address [address] [place], [place] [id number] [place] [address] Medications No known medications Problems No known problems
--- OUTSIDE RECORDS SUMMARY | 2024-05-13 12:19 | XMS_ITS | Patient Health Summary ---
Author Organization [facility] Address [address] [place] [address] Care Team Providers Care Health Informatics Specialist Name Role Phone Cody Rice APRN-CHEMICAL RECOVERY OPERATOR Primary Care Pro vider Note from [facility],non-owned Affiliates and Associated Physician Practices is amultiple site organization consisting of ambulatory clinics and hospital sitesin [place], [place], [place] and [place]. This disclosure is being madepursuant to the Care Everywhere program and may not contain all information available regarding this patient. Last updated 18.[facility] Allergies No known active allergies Medications * Be aware that medications may not be up to date on this document. Alwaysverify current medications with the patient. * Thiamine HCl 100 MG(Started 02/12/2016) Take by mouth DAILY. * levETIRAcetam (KEPPRA) 500 MG tablet(Started 01/15/2016) Take 500 mg by mouth BID. 3 refills left * ibuprofen (MOTRIN) 200 MG tablet(Started 01/09/2016) Take 200 mg by mouth q6h PRN (Pain). * HYDROcodone-acetaminophen ([place]) 5-325 MG tablet(Started 11/11/2023) Take 1 (one) tablet by mouth every 6 hours as needed * naproxen (Naprosyn) 500 MG tablet(Started 10/15/2023) Take 1 (one) tablet by mouth 2 times daily with morning and evening meal * citalopram (CeleXA) 20 MG tablet(Started 08/29/2023) Take 1 (one) tablet by mouth as needed Active Problems Problem Noted Date Diagnosed Date Nontraumatic subdural hemorrhage 01/09/2016 Immunizations * FLU VACCINE TRI IIV3 SPLIT PF IM (FLUVIRIN)(Given 01/10/2016, 03/03/2015) * HIB VACCINE(Given 02/26/2016) * INFLUENZA VACCINE, QUADR. (FLUZONE; FLULAVAL; FLUARIX; AFLURIA QUADRIVALENT; 6MO+), 0.5 ML (IIV4)(Given 01/27/2023, 01/14/2023, 05/24/2020, 01/02/2020, 03/09/2018) * PNEUMOCOCCAL PCV VACCINE(Given 11/11/2023) * PNEUMOCOCCAL PPSV23(Given 01/10/2016) * TDAP (7yrs+)(Given 11/18/2015) * Td (Adult), 2 Lf Tetanus Toxoid, Adsorbed, Pf(Given 01/02/2020) Social History Tobacco Use Types Packs/Day Years [...] Mass Index 25.78 11/18/2023 8:48 AM CDT Procedures * FL SWALLOWING FUNCTION STUDY(Performed 11/18/2023) Performed for Cancer of base of tongue (HCC) * OH LARYNGOSCOPY,FLEX FIBER,DIAGNOSTIC(Performed 11/18/2023) Performed for Cancer of base of tongue (HCC) * OH FNA BX W US GDN 1ST LES(Performed 11/18/2023) Performed for Cancer of base of tongue (HCC) * FINE NEEDLE ASPIRATION (STL)(Performed 11/18/2023) 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), Neck mass * PATH CONSULT ON REFERRED CASE(Performed 11/18/2023) Performed for Illness, unspecified * CT HEAD WO CONTRAST(Performed 02/12/2016) * BASIC METABOLIC PANEL (CALCIUM TOTAL)(Performed 01/15/2016) * CBC W AUTO DIFFERENTIAL(Performed 01/15/2016) * CBC W AUTO DIFFERENTIAL(Performed 01/15/2016) * BASIC METABOLIC PANEL (CALCIUM TOTAL)(Performed 01/14/2016) * CBC W AUTO DIFFERENTIAL(Performed 01/14/2016) * CBC W AUTO DIFFERENTIAL(Performed 01/14/2016) * CT HEAD WO CONTRAST(Performed 01/13/2016) * BASIC METABOLIC PANEL (CALCIUM TOTAL)(Performed 01/13/2016) * CBC W AUTO DIFFERENTIAL(Performed 01/13/2016) * CBC W AUTO DIFFERENTIAL(Performed 01/13/2016) * BASIC METABOLIC PANEL (CALCIUM TOTAL)(Performed 01/12/2016) * CBC W AUTO DIFFERENTIAL(Performed 01/12/2016) * CBC W AUTO DIFFERENTIAL(Performed 01/12/2016) * CT HEAD WO CONTRAST(Performed 01/11/2016) * CBC W AUTO DIFFERENTIAL(Performed 01/11/2016) * BASIC METABOLIC PANEL (CALCIUM TOTAL)(Performed 01/11/2016) * CBC W AUTO DIFFERENTIAL(Performed 01/11/2016) * CT HEAD WO CONTRAST(Performed 01/10/2016) * XR SKULL 3VW OR LESS(Performed 01/09/2016) * TEG PLATELET MAPPING(Performed 01/09/2016) * TYPE + SCREEN PANEL(Performed 01/09/2016) * COMPREHENSIVE METABOLIC PANEL(Performed 01/09/2016) * CBC W AUTO DIFFERENTIAL(Performed 01/09/2016) * PTT [facility](Performed 01/09/2016) * PT-INR [facility](Performed 01/09/2016) * CBC W AUTO DIFFERENTIAL(Performed 01/09/2016) Results * FL Swallowing Function Study (11/18/2023 10:50 AM CDT) Anatomical Region Laterality Modality Chest Radiographic Vannessa ging 11/18/2023 3:57 PM CDT Narrative 11/18/2023 4:25 PM CDT PROCEDURE: ??FL SWALLOWING FUNCTION STUDY, DATE/TIME OF EXAM: ??11/18/2023 11:46 AM, LOCATION ??[facility] INDICATION: C01: Cancer of base of tongue (HCC) ADDITIONAL CLINICAL INFORMATION: Ordering Provider Reason For Exam: Technologist Note: Additional: COMPARISON: None. FLUOROSCOPY DOSE: ??14.3 mGy Reference air kerma (ka,r). FLUOROSCOPY TIME: ??2.68 minutes; Number of images: ??[id number] TECHNIQUE: Modified barium swallow fluoroscopy performed in conjunction with speech pathology staff. The speech pathologist administered varying thickness barium liquids and solids under direct Cine fluoroscopy. FINDINGS/IMPRESSION: Fluoroscopic assistance was provided for a modified barium swallow test performed by Speech Therapy. Please see the Speech Therapy report for details. Report dictated by Erickson Herron MD, MD (radiology supervisor). Breanna Julian MD have personally reviewed and interpreted this examination/study. > Interpreting Provider: Breanna Fernandez MD on 11/18/2023 4:25 PM Procedure Note Breanna Fernandez MD - 11/18/2023 PROCEDURE: FL SWALLOWING FUNCTION STUDY, DATE/TIME OF EXAM: 11/18/2023 11:46 AM, LOCATION [facility] INDICATION: C01: Cancer of base of tongue (HCC) ADDITIONAL CLINICAL INFORMATION: Ordering Provider Reason For Exam: Technologist Note: Additional: COMPARISON: None. FLUOROSCOPY DOSE: 14.3 mGy Reference air kerma (ka,r). FLUOROSCOPY TIME: 2.68 minutes; Number of images: [id number] TECHNIQUE: Modified barium swallow fluoroscopy performed in conjunction with speech pathology staff. The speech pathologist administered varying thickness barium liquids and solids under direct Cine fluoroscopy. FINDINGS/IMPRESSION: Fluoroscopic assistance was provided for a modified barium swallow test performed by Speech Therapy. Please see the Speech Therapy report for details. Report dictated by Erickson Herron MD, MD (radiology supervisor). Breanna Julian MD have personally reviewed and interpreted this examination/study. > Interpreting Provider: Breanna Fernandez MD on 11/18/2023 4:25 PM Bassem Newman MD FLUOROSCOPY ORDERABL ES * OH LARYNGOSCOPY,FLEX FIBER,DIAGNOSTIC (11/18/2023 10:35 AM CDT) Bassem Soler MD - 11/18/2023 10:35 AM CDT Bassem Newman MD ? 11/18/2023 10:35 AM Procedure Note Anesthesia: Lidocaine 2% and Stiven-Synephrine 1/2% Endoscopy Type: ??Flexible Yvlsp-Bjjzcegjbkitdq-Ivqwirbnsjnj Procedure Details: ??Informed consent was obtained. ??The patient was placed in the sitting position. ??After topical anesthesia and decongestion, the 4 mm laryngoscope was passed. ??The nasal cavities, nasopharynx, oropharynx, hypopharynx, and larynx were all examined. ??Vocal cords were examined during respiration and phonation. Findings: -There is an ulcerative lesion within the vallecula which is difficult to visualize and then irregular granular tissue extending onto the epiglottis and left aryepiglottic fold. ??Vocal mobility is preserved and the true vocal cords are not involved. Disposition: The patient tolerated procedure well. Complications: None aBssem Newman MD PROCEDURE/MINOR SURG ICAL ORDERABLES * OH FNA BX W US GDN 1ST LES (11/18/2023 10:34 AM CDT) Bassem Soler MD - 11/18/2023 10:34 AM CDT Bassem Newman MD ? 11/18/2023 10:35 AM Procedure note Procedure: Fine-needle aspiration Indication:Neck mass Site: right Level II Details: The lesion was visualized with an ultrasound probe. ??A 25-gauge needle was used to aspirate the lesion under direct visualization with attention directed towards the capsule. ??This was initially reviewed with cytopathology onsite and additional tissue was recommended. ??A total of 6 passes were made. ??There was minimal bleeding. ??The patient tolerated this very well. Bassem Newman MD PROCEDURE/MINOR SURG ICAL ORDERABLES * FINE NEEDLE ASPIRATION (STL) (11/18/2023 9:30 AM CDT) Case Report Medical Cytology Report ? Case: [id number] ? Authorizing Provider: ??Bassem Newman MD ?Collected: ? 11/18/2023 09:30 AM ? Ordering Location: ? [facility] - ??Received: ?11/18/2023 12:26 PM ? ENT ? Pathologist: ? Samm Warren MD ? Specimen: ?Neck Mass ? 11/22/2023 10:56 AM CDT [facility] Specimen Adequacy Adequate cellularity for evaluation. 11/22/2023 10:56 AM CDT [facility] Final Diagnosis Neck mass, right, fine needle aspiration: - Malignant cells present, compatible with poorly differentiated non-small cell carcinoma, see comment 11/22[facility]2023 10:[facility] Clinical History The patient is a 53 year-old male with large base of tongue, supraglottic mass and bilateral cervical adenopathy highly suspicious for malignancy. On physical exam, multiple pathologically enlarged firm lymph nodes are seen in right level 2. 11/22/2023 10:56 AM [facility] Gross Description 2 pap, 2 diff-quik stained slides and 1 cellblock from a Right neck Lymph node (Base of tongue Squamous cell carcinoma) Immediate interpretation by Dr. Ramon Hope Right cervical Lymph node, FNA: Episode 1: Pass 1,2 - Malignant cells present , recommend additional passes for cellblock . Reported to Dr Newman (9:41am) 11/22/2023 10:56 AM [facility] Microscopic Description The cytology smears show malignant clusters with high N:C ratio, pleomorphism and prominent nucleoli. There is also rare dysplastic keratinizing squamous cells and keratin debris in the background. The cell block is hypocellular and consists of rare malignant cells. Multiple additional deeper levels were examined on the cell block. Additional p16 and p40 stains are attempted. P16 and p40 stains are non-contributory due to the low cellularity. Overall, the findings are consistent with poorly differentiated non-small cell carcinoma, suggestive of squamous cell carcinoma in this given history and histomorphology. Clinical correlation is recommended. The cell block is insufficient for additional ancillary studies. 11/22/2023 10:56 AM [facility] Pathologist Location at [facility] 11/22/2023 10:56 AM [facility] Disclaimer The performance characteristics of all immunohistochemical and indirect immunofluorescence stains (if any) cited in this report were determined by the Histopathology Laboratory of [facility]. Some of these tests rely on the use of analyte-specific reagents and are subject to specific labeling requirements by the US Food and Drug Administration. Such tests were developed by the Histology Laboratory of [facility] and have not been cleared or approved by the FDA. The FDA has determined that such clearance and approval is not necessary. These tests are used for clinical purposes and should not be regarded as investigational or for research. This laboratory is certified under the Clinical Laboratory Improvement Amendments (CLIA) as qualified to perform high complexity clinical laboratory testing. This case has been personally reviewed and interpreted by the attending (teaching) pathologist. 11/22/2023 10:56 AM [facility] Embedded Images 11/22/2023 10:56 AM CDT [facility] Pathology/Cytolo gy MASS OF NECK / Unknown 11/18/2023 9:30 AM CDT 11/18/2023 12:26 PM CDT Bassem Newman MD LAB - PATHOLOGY/CYTO LOGY ORDERABLES [facility] [address] [phone] * PATH CONSULT ON REFERRED CASE (11/18/2023 9:02 AM CDT) Final Diagnosis Larynx, biopsy (OSC: [id number]; 08/12/2023 ): - Squamous cell carcinoma, invasive, moderately differentiated 12/02/2023 3:11 PM CDT [facility] Microscopic Description and Comment Microscopic examination substantiates the final diagnosis. The focal complexity of architecture is sufficient for a diagnosis of invasive squamous cell carcinoma, although there is also a large amount of [id number]. This specimen was submitted as larynx , and therefore no p16 stain was performed 12/02/2023 3:11 PM CDT [facility] Clinical History 53 year old man with large supraglottic / base of tongue mass emanating from the vallecula . 12/02/2023 3:11 PM CDT [facility] Materials Received Received are 3 H and E stained slide(s) labeled [id number] along with a copy of the outside pathology report. [place] [address]. All original materials are returned to the referring institution, along with a copy of our final report. 12/02/2023 3:11 PM CDT [facility] Addendum 1 Immunohistochemistry for p16 is negative in lesional cells with appropriately reactive on slide positive control. 12/02/2023 3:11 PM CDT [facility] Addendum electronically signed by Loren Mendoza MD on 12/02/2023 at 3:10 PM Pathologist Location at [facility] 12/02/2023 3:11 PM CDT [facility] Disclaimer The performance characteristics of all immunohistochemical and indirect immunofluorescence stains (if any) cited in this report were determined by the Histopathology Laboratory of [facility]. Some of these tests were developed by [...] the attending (teaching) pathologist. 12/02/2023 3:11 PM CDT [facility] Case Report Surgical Pathology Report ? Case: [id number] ? Authorizing Provider: ??Bassem Newman MD ?Collected: ? 11/18/2023 09:02 AM ? Ordering Location: ? [facility] - ??Received: ?11/18/2023 09:02 AM ? Pathology Lab ? Pathologist: ? Afshan Enamorado MD ? Specimen: ?Slide Consultation ? 12/02/2023 3:11 PM CDT [facility] Embedded Images 12/02/2023 3:11 PM CDT [facility] Pathology/Cytolo gy SURGICAL PATHOLOGY CONSULTATION AND REPORT ON REFERRED SLIDES PREPARED ELSEWHERE / Unknown 11/18/2023 9:02 AM CDT 11/18/2023 9:02 AM CDT Bassem Newman MD LAB - PATHOLOGY/CYTO LOGY ORDERABLES [facility] [address] [phone] * CT HEAD WO CONTRAST (02/12/2016 9:57 AM CDT) Only the most recent of4 resultswithin the time period is included. Anatomical Region Laterality Modality Head Other Impressions 02/12/2016 10:07 AM CDT IMPRESSION: 1. Decreased size and attenuation of bilateral cerebral convexity subdural hematomas. No internal brain herniation. This report was electronically signed by ENDY ARROYO M.D. ??on 02/12/2016 10:07 AM . Narrative 02/12/2016 10:07 AM CDT EXAMINATION: Computed tomography (CT) of the head without contrast HISTORY: Subdural hematoma TECHNIQUE: CT of the head was performed without contrast according to standard protocol. FINDINGS: Comparison is made with a study from 13 January 2016. Bilateral cerebral convexity subdural hematomas have decreased in attenuation and size, now measuring 17 mm on the right (image 40 series 5) and 8 mm on the left (image 51 series 5). Pneumocephalus has resolved. The ventricles are nondilated. The basilar cisterns are patent. There is residual regional mass effect but no significant midline shift. The [place]chaca-white matter differentiation is normal. A right parietal precious hole is unchanged. Other than an old left lamina preparation fracture, the visualized portions of the orbits, paranasal sinuses, and mastoids appear normal. A healed ping-pong type fracture through the parietal bones near the vertex is unchanged. Procedure Note Endy Arroyo MD - 07/16/2017 EXAMINATION: Computed tomography (CT) of the head without contrast HISTORY: Subdural hematoma TECHNIQUE: CT of the head was performed without contrast according tostandard protocol. FINDINGS: Comparison is made with a study from 13 January 2016. Bilateral cerebral convexity subdural hematomas have decreased inattenuation and size, now measuring 17 mm on the right (image 40 series 5)and 8 mm on the left (image 51 series 5). Pneumocephalus has resolved. Theventricles are nondilated. The basilar cisterns are patent. There is residual regional mass effect but nosignificant midline shift. The [place]aca-white matter differentiation isnormal. A right parietal precious hole is unchanged. Other than an old leftlamina preparation fracture, the visualized portions of the orbits, paranasal sinuses, and mastoids appear normal. Ahealed ping-pong type fracture through the parietal bones near the vertexis unchanged. IMPRESSION IMPRESSION: 1. Decreased size and attenuation of bilateral cerebral convexity subduralhematomas. No internal brain herniation. This report was electronically signed by ENDY ARROYO M.D. on02/12/2016 10:07 AM . Jose A Marlow MD CT ORDERABLES * (ABNORMAL) CBC W AUTO DIFFERENTIAL (01/15/2016 5:10 AM CDT) Only the most recent of12 resultswithin the time period is included. WBC 10.0 3.5 - 10.5 10? 3 /uL [facility] RBC 4.44 4.30 - 5.70 10? 6 /uL [facility] Hemoglobin 14.7 13.5 - 17.5 g/dL [facility] Hematocrit 41.3 39.0 - 50.0 % [facility] MCV 93.0 81.0 - 97.0 fL [facility] MCH 33.1 28.0 - 34.0 pg [facility] MCHC 35.6 32.0 - 36.0 g/dL [facility] Platelet Count 354 150 - 400 10? 3 /uL [facility] RDW-SD 47.3 36.0 - 50.0 fL [facility] RDW-CV 14.0 11.2 - 14.8 % [facility] MPV 9.8 9.3 - 12.8 fL [facility] Neutrophils % 70.8(H) 35.0 - 70.0 % [facility] Lymphocytes % 19.6(L) 19.7 - 55.1 % [facility] Monocytes % 7.5 3.0 - 15.0 % [facility] Eosinophils % 1.6 0.0 - 6.0 % [facility] Basophil % 0.5 0.0 - 1.5 % [facility] Neutrophils Absolute 7.1(H) 1.6 - 7.0 10? 3 /uL [facility] Lymphocyte Absolute 2.0 0.8 - 2.9 10? 3 /uL [facility] Monocytes Absolute 0.75(H) 0.14 - 0.66 10? 3 /uL [facility] Eosinophils Absolute 0.16 0.00 - 0.22 10? 3 /uL [facility] Basophils Absolute 0.05 0.00 - 0.06 10? 3 /uL [facility] Immature Granulocytes % 0.3 0.0 - 1.0 % [facility] Blood specimen (specimen) BLOOD SPECIMEN / Unknown 01/15/2016 5:10 AM CDT 01/15/2016 5:15 AM CDT Jose A Marlow MD LAB - HEMATOLOGY OR DERABLES Performing Organization Address City/State/[facility] Co de Phone Number [facility] [address] [place] [address] * (ABNORMAL) BASIC METABOLIC PANEL (CALCIUM TOTAL) (01/15/2016 5:10 AM CDT) Only the most recent of5 resultswithin the time period is included. BUN 12 7 - 26 mg/dL [facility] Creatinine 1.1 0.6 - 1.2 mg/dL [facility] Sodium 142 136 - 145 mmol/L [facility] Potassium 3.9 3.5 - 4.5 mmol/L [facility] Chloride 111(H) 98 - 107 mmol/L [facility] CO2 24 22 - 29 mmol/L [facility] Glucose 92 70 - 115 mg/dL [facility] Calcium 10.0 8.4 - 10.2 mg/dL [facility] Anion Gap 11 8 - 18 [facility] BUN/Creatinine Ratio 11 7 - 23 [facility] Osmolality Calculated 293 270 - 300 mOsm/kg [facility] eGFR >60 >60 mL/min/1.7 3 m2 [facility] Blood specimen (specimen) BLOOD SPECIMEN / Unknown 01/15/2016 5:10 AM CDT 01/15/2016 5:15 AM CDT Jose A Marlow MD LAB - CHEMISTRY ORD ERABLES [address] [phone] * XR SKULL 3VW OR LESS (01/09/2016 12:22 PM CDT) Anatomical Region Laterality Modality Head Other Impressions 01/09/2016 2:08 PM CDT IMPRESSION: 1. No acute calvarial fracture. 2. Postoperative appearance of right subdural drain placement. Dictated by Daniel Oconnor MD (radiology supervisor). I, Dr. BREANNA FERNANDEZ M.D. have personally reviewed and interpreted this examination/study. This report was electronically signed by BREANNA FERNANDEZ M.D. ??on 01/09/2016 2:08 PM . Narrative 01/09/2016 2:08 PM CDT EXAMINATION: Skull, 2 views HISTORY: Head trauma COMPARISON: No prior study is available for comparison. FINDINGS: No acute fracture of the calvarium is identified. A drain is present within the calvarium adjacent to the right parietal bone, and exiting posteriorly. ??The visible sinuses are unremarkable. No air-fluid level is seen. Procedure Note Breanna Fernandez MD - 07/16/2017 EXAMINATION: Skull, 2 views HISTORY: Head trauma COMPARISON: No prior study is available for comparison. FINDINGS: No acute fracture of the calvarium is identified. A drain is presentwithin the calvarium adjacent to the right parietal bone, and exitingposteriorly. The visible sinuses are unremarkable. No air-fluid level isseen. IMPRESSION IMPRESSION: 1. No acute calvarial fracture. 2. Postoperative appearance of right subdural drain placement. Dictated by Daniel Oconnor MD (radiology supervisor). I, Dr. BREANNA FERNANDEZ M.D. have personally reviewed and interpreted thisexamination/study. This report was electronically signed by BREANNA FERNANDEZ M.D. on 01/09/20162:08 PM . Jose A Marlow MD DIAGNOSTIC IMAGING ORDERABLES * (ABNORMAL) TEG PLATELET MAPPING (01/09/2016 10:05 AM CDT) G-Clot Strength 9.8 4.5 - 11.0 d/sc [facility] Pathology Review TEG Other [facility] Interpretation TEG See Comment [facility] React-Time 4.7(L) 5.0 - 10.0 MIN [facility] K-Time 1.1 1.0 - 3.0 MIN [facility] Angle A-BB 73.6(H) 53.0 - 72.0 Degrees [facility] MA (CK) BB 66.2 50.0 - 70.0 mm [facility] LY30 2.2 0.0 - 8.0 % [facility] CI-Coagulation Index 2.4 -3.0 - 3.0 [facility] MA-ADP 35.7 Reference Range: None mm [facility] MA AA-BB 16.0 Reference Range: None mm [facility] % ADP Inhibition 60.2 Reference Range:None % [facility] % AA Inhibition 99.0 Reference Range: None % [facility] Blood specimen (specimen) BLOOD SPECIMEN / Unknown 01/09/2016 10:05 AM CDT 01/09/2016 10:16 AM CDT Narrative [facility] - 01/09/2016 11:37 AM CDT SEE BELOW ?TEG Kaolin Sample Type Interpretation TEG Value ?Hemostasis State R < than 4 min: ?Enzymatic Hypercoagulability R 11-14 min: ? Low Clotting Factors R > than 14 min: ?? Very low clotting factors MA 46-54 mm: ? Low Platelet function MA 41-45 mm: ? Very low platelet function MA 40 mm or less: ??Extremely low platelet function MA > 73 mm: ?Platelet hypercoagulability R < 4 min and ?Enzymatic and platelet hypercoagulability MA > 73 mm: Angle < 45 deg: ?Low fibrinogen level LY30 at 7.5% or >, Primary Fibrinolysis CI < than 1.0: ?? LY30 at 7.5% or >, Secondary fibrinolysis CI > than 3.0: LY30 < 7.5%, ? Prothrombotic state CI > 3.0: Jose A Marlow MD LAB - BLOOD BANK OR DERABLES [facility] [address] * TYPE + SCREEN PANEL (01/09/2016 5:41 AM CDT) Typem O POS [facility] Antibody Screen NEG [facility] Blood specimen (specimen) 01/09/2016 5:41 AM CDT 01/09/2016 5:56 AM CDT Leopoldo Rai MD LAB - BLOOD BANK ORD ERABLES Performing Organization Address City/[facility] Co de Phone Number [facility] [address] * (ABNORMAL) COMPREHENSIVE METABOLIC PANEL (01/09/2016 5:41 AM CDT) Pathologist [facility] BUN 5(L) 7 - 26 mg/dL [facility] Creatinine 1.1 0.6 - 1.2 mg/dL [facility] Sodium 141 136 - 145 mmol/L [facility] Potassium 3.9 3.5 - 4.5 mmol/L [facility] Chloride 109(H) 98 - 107 mmol/L [facility] CO2 24 22 - 29 mmol/L [facility] Glucose 87 70 - 115 mg/dL [facility] Calcium 9.4 8.4 - 10.2 mg/dL [facility] Protein Total 6.4 6.0 - 8.3 g/dL [facility] Albumin 3.2(L) 3.4 - 5.0 g/dL [facility] Bilirubin Total 0.7 0.2 - 1.2 mg/dL [facility] Alkaline Phosphatase 75 40 - 150 Units/L [facility] ALT 8 0 - 55 Units/L [facility] AST 12 5 - 34 Units/L [facility] Anion Gap 12 8 - 18 [facility] BUN/Creatinine Ratio 5(L) 7 - 23 [facility] Osmolality Calculated 289 270 - 300 mOsm/kg [facility] Albumin/Globulin Ratio 1.0(L) 1.1 - 2.3 [facility] eGFR >60 >60 mL/min/1.7 3 m2 [facility] Blood specimen (specimen) BLOOD SPECIMEN / Unknown 01/09/2016 5:41 AM CDT 01/09/2016 5:50 AM CDT Leopoldo Rai MD LAB - CHEMISTRY ORDE RABLES Performing Organization Address [facility]/ZIP Co de Phone Number [address] [phone] * PTT [facility] (01/09/2016 5:41 AM CDT) APTT 28.1 23.0 - 38.4 Seconds [facility] Comment:Suggested therapeuti c range for full dose I.V. heparin therapy for venous thromboembolism is 66.0-91.0 seconds. Blood specimen (specimen) BLOOD SPECIMEN / Unknown 01/09/2016 5:41 AM CDT 01/09/2016 5:50 AM CDT Narrative [facility] - 01/09/2016 6:02 AM CDT Is patient on Heparin, Argatroban or Dabigatran?->N Leopoldo Rai MD LAB - COAGULATION OR DERABLES Performing Organization Address [facility] Co de Phone Number [address] [phone] * PT-INR [facility] (01/09/2016 5:41 AM CDT) PT 12.9 12.1 - 14.8 Seconds [facility] INR 1.0 See Comment [facility] Comment: Suggested therapeutic range for low-intensity coumadin therapy for venous thromboembolism prophylaxis is an INR of 2.0-3.0. ??For high risk patients (Mitral Valve Prosthesis, Atrial Fibrillation, history of TIA/stroke), suggested prophylactic therapeutic range is an INR of 2.5-3.5. Blood specimen (specimen) BLOOD SPECIMEN / Unknown 01/09/2016 5:41 AM CDT 01/09/2016 5:50 AM CDT Narrative [facility] - 01/09/2016 6:01 AM CDT Is patient on Heparin, Argatroban or Dabigatran?->N Leopoldo Rai MD LAB - COAGULATION OR DERABLES [facility] [address] [place] [address], [facility] [phone] Care Teams Health Informatics Specialist Relationship Specialty Start Date End Date Cody Rice, SENIOR HUMAN RESOURCES REPRESENTATIVE-CHEMICAL RECOVERY OPERATOR [address] [place] [address] PCP - General Nurse Practitioner 11/18/23
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
--- OUTSIDE RECORDS SUMMARY | 2024-05-13 12:19 | XMS_ITS ---
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 Name Role Phone Carolina Edmonds Primary Care Provider Maximus Childs Unavailable [phone] Allergies Allergen (clinical drug ingredient) Drug/Non Drug Allergy documented on EMR Reaction Allergy Type Onset Date Status No Known Drug Allergy Unknown Drug Allergy Active REASON FOR VISIT CRU - last seem 08/2023 Medications Medication SIG (Take, Route, Frequency, Duration) Notes Start Date End Date Status traMADol HCl 50 MG 1 tablet as needed O rally every 8 hours Active hydrOXYzine HCl 25 MG two tablets Orally every 4 hours as needed for 30 days Active Multivitamin - 1 tablet Orally Once [...] History Observation Description Sex Assigned At Male Tobacco Control (Standard) Question Answer Notes Tobacco use: Nonsmoker Encounters Encounter Location Date Provider Diagnosis [facility] [address] [place] [address] 04/27/2024 Maximus Childs Alcohol use disorder F10.99 and Bipolar 2 disorder F31.81 Assessments Encounter Date Diagnosis (ICD Code) Assessment Notes Treatment Notes Treatment Clinical Notes Section Notes 04/27/2024 Alcohol use disorder (ICD-10 - F10.99) vs alcohol induced mood disorder Today's visit: Patient is a 54-year-old male who presents for a psychiatric follow-up over Zoom and is located in [place], is a transfer Dr. Carolina Edmonds, [facility] and during this appt was continued on [...] following CRU. Collaborating with medical provider Caro harris regarding tramadol for increased risk of sertonin [...] or be administered own oral medications per [facility] protocols. Provided informed consent with understanding of side effects, adverse effects, risks and benefits as well as alternative treatments as previously discussed and with the above recommended medications & other aspects of the treatment program. Agrees to return sooner if symptoms worsen or suicidal or homicidal ideations occur. 04/27/2024 Bipolar 2 disorder (ICD-10 - F31.81) Plan Of Treatment Medication Medication Name Sig Start Date Stop Date Notes hydrOXYzine HCl 25 MG two tablets Orally every 4 hours as needed for 30 days Citalopram Hydrobromide 20 MG 1 tablet O rally Once a day for 30 days traZODone HCl 50 MG 1 tablet at bedtime as needed Orally Once a day for 30 days OLANZapine 10 MG 1 tablet Orally Once a day for 30 days Melatonin 5 MG 1 tablet in the even ing Orally Once a day for 30 days Treatment Notes Assessment Notes Alcohol use disorder Today's visit: Patient is a 54-year-old male who presents for a psychiatric follow-up over Zoom and is located in [place], is a transfer MARISOL Self and during this appt was continued on [...] following CRU. Collaborating with medical provider Caro harris regarding tramadol for increased risk of sertonin [...] or be administered own oral medications per [facility] protocols. Provided informed consent with understanding of side effects, adverse effects, risks and benefits as well as alternative treatments as previously discussed and with the above recommended medications & other aspects of the treatment program. Agrees to return sooner if symptoms worsen or suicidal or homicidal ideations occur. Future Test Test Name Order Date Hemoglobin A1c* 04/27/2024 Lipid Panel w/ Chol/HDL Ratio 04/27/2024 CMP 14 Comprehensive Metabolic Panel* CBC w/DIFF 04/27/2024 Next Appt Details Follow Up: 6 Weeks, Reason: med f/u Progress Notes * Mario LINARESDOB:1970 (54 yo M)Acc No.[id number]:04/27/2024 Patient:?Mario LINARES Provider:?MARISOL [place] :1970???Age:54 Y???Sex:Male Homer e:04/27/2024 Address[place] [address] Pcp:Carolina Edmonds Subjective: * Chief Complaints: * ???CRU - last seem 08/2023 * HPI: ???Psych F/U:?Changes since last visit?:?States has been feeling depressed and hopeless, I had to get away from lifestyle I was living . States had alcohol use, I was not helping myself . 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 The tumor shrank. Last time having treatment was a few months ago. Did not spread. Has a hard time eating d/t tumor, and have lost almost 30 lbs. Last time having alcohol, New Year's [place] with cousin. Has had troubles with alcohol with most of my life glad it's behind him. [place] like my body was deteriorating . PERSONAL BACKGROUND HISTORY Abuse/Trauma: feeling like I was neglected . 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 Out of long term in 2019. Not currently on probation or parole. Spiritual Affiliation:Believes in God Relationship status:Single Children: Has two children, 2 sons one I'm not sure of Residence: Was living in home, bouncing place to place and was living with son I want to change that . Upbringing: Is from [place], used to live in [place] in the 's for a summer. Emotional support: god and his jain family Medical History:Denies history of head injuries or seizures ALCOHOL DRUG HISTORY Rehab: So many places I can't remember , plans to do the 28-day program Alcohol: History of using Marijuana: History of using last time 3 weeks ago Cocaine: Denies Heroin: Denies Fentanyl: Denies Meth: Denies Hallucinogens: Denies OTC/Rx drugs: Denies Caffeine: Denies, drinks clear soda doesn't like coffee, no energy drinks Nicotine: Cigar use in the past but never cigarettes PAST PSYCHIATRIC HX Past psych provider/therapist: I can't answer that question, been staying on quick stand . Psychiatric Diagnoses: Bipolar and depression, Past Psychiatric medications: Family psych hx: A cousin has SSI for bipolar d/o Inpatient psych hospitalizations: I couldn't count them all usually because I'm feeling hopeless . Suicidal Ideations hx: Denies Suicide Attempt(s) hx: Denies Homicidal Ideation hx: Hx of ideations with intent or plan, denies presently Self-injurious behavior hx: Denies Aggression hx: Aggravated battery the only reason is because they harassed me, only place I get in trouble is [place], [place] with my childhood . Denies starting fights or being violent Ruthy hx: Denies hx of ruthy with increased energy, decreased sleep or impulsivity. Frank hx of grandiosity. AVH/paranoia hx: Occasionally can hear voices, started to hear voices when finding out he had to varma cancer. If I'm going to live or from this cancer . Denies VH I don't hallucinate . Denies paranoia. Impulsivity: Hiel under the influence Depression: History of, states only feeling depressed when drinking and things, feeling hopeless Anxiety/panic: I have that occasionally yes used to worry about getting arrested but I don't drink anymore, so I don't worry about it Trauma sx: hx of nightmares, all the time , having them all my life . Reports hx of flashbacks, no lately . Denies startle response or hypervigilance. ROS Sleep: I have normal sleep and I nap during the day sometimes when I have a place to live . Appetite: Fair Energy: normal Motivation: normal , I love to bathe and wear clean clothing Irritability: I don't, it takes a lot to irritate me Anxiety- not presently Depression- Would rate a 8/10 with 10 being the worst.?CSSRS Interpretation and Follow Up Plan:?CSSRS Interpretation and Follow Up Plan?CSSRS Screen documented using SF?Yes ?Risk Disposition from SF?Low - No Follow Up Plan Required ?Follow Up Plan?No Follow Up Plan required at this time. ???Screening:?Navajo Suicide Severity Rating Scale (LF)?Do you want to initiate with?Screener form ?1. Wish to be : Have you wished you were or wished you could go to sleep and not wake up??No ?2. Suicidal Thoughts: Have you actually had any thoughts of killing yourself??No ?6. Suicide Behaviour: Have you ever done anything,started to do anything, or prepared to end your life??No ?Interpretation:?Low Risk ???Depression Screening:?PHQ-9?Little interest or pleasure in doing things?Not at all ?Feeling down, depressed, or hopeless?More than half the days ?Trouble falling or staying asleep, or sleeping too much?Several days ?Feeling tired or having little energy?Not at all ?Poor appetite or overeating?Nearly every day ?Feeling bad about yourself or that you are a failure, or have let yourself or your family down?Not at all ?Trouble concentrating on things, such as reading the newspaper or watching television?Not at all ?Moving or speaking so slowly that other people could have noticed; or the opposite, being so fidgety or restless that you have been moving around a lot more than usual?Not at all ?Thoughts that you would be better off or of hurting yourself in some way?Not at all ?Total Score?6 ?Interpretation?Mild Depression ???ROSHAN-7 Screening:?1. Feeling nervous, anxious, or on edge?: , :, Several days-1.?2. Not being able to stop or control worrying?: , :, More than half the days-2.?3. Worrying too much about different things?: , :, Not at all-0.?4. Trouble sleeping/relaxing?: , :, Not at all-0.?5. Being so restless that it is hard to sit still?: , :, Not at all-0.?6. Becoming easily annoyed or irritable?: , :, Not at all-0.?7. Feeling afraid, as if something awful might happen?: , :, Not at all- 0.?ROSHAN-7 Score?Total score?3 : ???Mood Disorder Questionnaire 6-22-22:? Please answer each question to the best of your ability. ?Questions?Please answer each question to the best of your ability.?Has there ever been a time period when you were not your usual self and... ?You felt so good or hyper that other people thought you were not your normal self or you were so hyper that you got into trouble??Yes . ?You were so irritable that you shouted at people or started fights or arguments??Yes . ?You got much less sleep than usual and found that you didn't really miss it??No . ?You felt much more self-confident than usual??Yes . ?You were more talkative or spoke much faster than usual??No .Patient states, The ones he said yes to were under the influence. ?Thoughts raced through your head or you couldn't slow your mind down??Yes . ?You were so easily distracted by things around you that you had trouble concentrating or staying on track??Yes . ?You had more energy than usual??Yes . ?You were more active or did many more things than usual??Yes . ?You were more social or outgoing than usual, for example, you telephoned friends in the middle of the night??Yes . ?You were more interested in sex than usual??No . ?You did things that were usual for you or that other people might have thought were excessive, foolish, or risky??No . ?Spending money got you or your family in trouble??Yes . ?If you checked YES to more than one of the above, have several of these ever happened during the same period of time??No . ?How much of a problem did any of these cause you - like being unable to work; having family, money or legal troubles; getting into arguments or fights??Serious problem .Patient states, it's not a problem anymore and it was only a problem under influence. * ROS:?Psych ROS:?Constitutional?All systems negative or controlled on medication unless indicated otherwise..? * Medical History:? * Surgical History:?Ricardo khanna ia repair 1992Biopsy on throat 07/2023 * Hospitalization/Major Diagno stic Procedure:?suicidal ideations 03/2017[facility] - [facility] for 9 months 01/[facility] 02/2022[facility] 07/2023 * Family History:?Father: sim bloom?Mother: , passed from heart attack and aneurysm.?3 brother(s) - healthy. 2 son(s) - healthy. .? * Social History:?Primary Social History:?Living Arrangement?Living Arrangement:?Homeless ?Alcohol Use?Alcohol Use Frequency:?Weekly or Daily ?Type of alcohol consumed?Liquor ?Illicit Substance Usage?Illicit Substance Usage:?No ?Employment Status?Employment Status:?Unemployed ???Tobacco Use:?Tobacco Control (Standard)?Tobacco use:?Nonsmoker * Medications:?TakingtraMADol HCl 50 MG Tablet 1 tablet as needed Orally every 8 hours Melatonin 5 MG Tablet 1 tablet in the evening Orally Once a day OLANZapine 10 MG Tablet 1 tablet Orally Once a day Citalopram Hydrobromide 20 MG Tablet 1 tablet Orally Once a day Multivitamin - Tablet 1 tablet Orally Once a day hydrOXYzine HCl 25 MG Tablet two tablets Orally every 4 hours as needed traZODone HCl 50 MG Tablet 1 tablet at bedtime as needed Orally Once a day Medication List reviewed and reconciled with the patientTaking traMADol HCl 50 MG Tablet 1 tablet as needed Orally every 8 hours Taking Melatonin 5 MG Tablet 1 tablet in the evening Orally Once a day Taking OLANZapine 10 MG Tablet 1 tablet Orally Once a day Taking Citalopram Hydrobromide 20 MG Tablet 1 tablet Orally Once a day Taking Multivitamin - Tablet 1 tablet Orally Once a day Taking hydrOXYzine HCl 25 MG Tablet two tablets Orally every 4 hours as needed Taking traZODone HCl 50 MG Tablet 1 tablet at bedtime as needed Orally Once a day Medication List reviewed and reconciled with the patient * Allergies:?No Known Drug All ergyno[Allergies Verified] Objective: * Vitals:?Initials: ma, Pain s henrique:7, GAD7:3, PHQ9:6. * Examination: ???Mental Status Exam: ?SENSORIUM AND COGNITION??A&OX4.?ATTENTION AND CONCENTRATION?No deficits.?APPEARANCE?Appropriate.?ATTITUDE AND BEHAVIOR?Cooperative, receptive.?MEMORY?Adequate.?EYE CONTACT?Good.?AFFECT?Euthymic.?MOOD?Euthymic.?SPEECH QUANTITY?Appropriate.?SPEECH QUALITY?Spontaneous , Appropriate volume.?THOUGHT PROCESS?Coherent and goal directed.?THOUGHT CONTENT?No evidence of delusional content , No reports of paranoia.?LANGUAGE?Appropriate- WNL.?MOTOR ACTIVITY?Relaxed.?SUICIDAL IDEATION?Denies SI or thoughts of self harm.?HOMICIDAL IDEATION?Denies homicidal ideation or thoughts of aggression.?HALLUCINATIONS?Does not appear to be responding to internal stimuli or seeing hallucinations in the room.?INSIGHT?Fair to Adequate.?JUDGMENT?Fair to Adequate.?FUND OF KNOWLEDGE?Adequate.?ABILITY TO PARTICIPATE IN TREATMENT?Adequate.?WILLINGNESS TO PARTICIPATE IN TREATMENT?Adequate.? Assessment: * Assessment: 1.?Bipolar 2 disorder - F31. 81 (Primary)???2.?Alcohol use disorder - F10.99???Notes :vs alcohol induced mood disorder??? Plan: * Treatment: 2.?Alcohol use disorder? Notes:Today's visit: Patient is a 54-year-old male who presents for a psychiatric follow-up over Zoom and is located in [place], is a transfer Dr. Carolina Edmonds, [facility] and during this appt was continued on Trazodone 50 mg PRN, melatonin 5 m PRN, Olanzapine 10 mg, Celexa 20 mg, and hydroxyzine. PHQ-9 score of 6, ROSHAN-7 score of 3, MDQ with 8 yes. Currently prescribed same medications. Reportsdepressive symptoms in the setting of medical diagnosis [...] following CRU. Collaborating with medical provider Caro harris regarding tramadol for increased risk of sertonin syndrome; he denies any sx presently or side effects from medications - will continue to monitor.Unable to complete full AIMS due to nature of appt, denies any irregular muscle movements or facial tics; no irregular movements observed during Zoom appt. No acute safety concerns the time of this appt, he is agreeable to treatment plan and was provided an opportunity to ask questions. May self-administer medications or be administered own oral medications per [facility] protocols. Provided informed consent with understanding of side effects, adverse effects, risks and benefits as well as alternative treatments as previously discussed and with the above recommended medications & other aspects of the treatment program. Agrees to return sooner if symptoms worsen or suicidal or homicidal ideations occur. ?? * Procedure Codes:? * Follow Up:?6 Weeks (Reason: med f/u) * * GRATION LEAD Sign off status: Completed true * Provider:?Maximus Childs, [facility] Date:? 04/27/2024 Generated for Benny meyers/Artemio/Lidia on:?05/13/2024 12:18 PM INTEGRATION LEAD History and Physical Notes * HPI (History of Present Illness) Category Sub-Category Detail Notes Category Not es Depression Screening PHQ-9 Little inte rest or pleasure in doing things: Not at all Feeling down, depressed, or hopeless: Mo re than half the days Trouble falling or staying asleep, or sl eeping too much: Several days Feeling tired or having little energy: N ot at all Poor appetite or overeating: Nearly ever y day Feeling bad about yourself o r that you are a failure, or have let yourself or your family down: Not at all Trouble concentrating on thi ngs, such as reading the newspaper or watching television: Not at all Moving or speaking so slowly that other people could have noticed; or the opposite, being so fidgety or restless that you have been moving around a lot more than usual: Not at all Thoughts that you would be b argelia off or of hurting yourself in some way: Not at all Total Score: 6 Interpretation: Mild Depression ROSHAN-7 Screening 1. Feeling nervous, anxious, or on edg e : , :, Several days-1 2. Not being able to stop or control wor rying : , :, More than half the days-2 3. Worrying too much about different thi ngs : , :, Not at all-0 4. Trouble sleeping/relaxing : , :, Not at all-0 5. Being so restless that it is hard to sit still : , :, Not at all-0 6. Becoming easily annoyed or irritable : , :, Not at all-0 7. Feeling afraid, as if susanna ething awful might happen : , :, Not at all-0 ROSHAN-7 Score Total score: 3 : Psych F/U Changes since last visit?: States has been feeling depressed and ho peless, I had to get away from lifestyle I was living . States had alcohol use, I was not helping myself . 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 The tumor shrank. Last time having treatment was a few months ago. Did not spread. Has a hard time eating d/t tumor, and have lost almost 30 lbs. Last time having alcohol, New Year's [place] with cousin. Has had troubles with alcohol with most of my life glad it's behind him. [place] like my body was deteriorating . PERSONAL BACKGROUND HISTORY Abuse/Trauma: feeling like I was neglected . 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 Out of long term in 2019. Not currently on probation or parole. Spiritual Affiliation: Believes in God Relationship status: Single Children: Has two children, 2 sons one I'm not sure of Residence: Was living in home, bouncing place to place and was living with son I want to change that . Upbringing: Is from [place], used to live in [place] in the 80's for a summer. Emotional support: god and his jain family Medical History: Denies history of head injuries or seizures ALCOHOL DRUG HISTORY Rehab: So many places I can't remember , plans to do the 28-day program Alcohol: History of using Marijuana: History of using last time 3 weeks ago Cocaine: Denies Heroin: Denies Fentanyl: Denies Meth: Denies Hallucinogens: Denies OTC/Rx drugs: Denies Caffeine: Denies, drinks clear soda doesn't like coffee, no energy drinks Nicotine: Cigar use in the past but never cigarettes PAST PSYCHIATRIC HX Past psych provider/therapist: I can't answer that question, been staying on quick stand . Psychiatric Diagnoses: Bipolar and depression, Past Psychiatric medications: Family psych hx: A cousin has SSI for bipolar d/o Inpatient psych hospitalizations: I couldn't count them all usually because I'm feeling hopeless . Suicidal Ideations hx: Denies Suicide Attempt(s) hx: Denies Homicidal Ideation hx: Hx of ideations with intent or plan, denies presently Self-injurious behavior hx: Denies Aggression hx: Aggravated battery the only reason is because they harassed me, only place I get in trouble is [place], [place] with my childhood . Denies starting fights or being violent Ruthy hx: Denies hx of ruthy with increased energy, decreased sleep or impulsivity. Frank hx of grandiosity. AVH/paranoia hx: Occasionally can hear voices, started to hear voices when finding out he had to varma cancer. If I'm going to live or from this cancer . Denies VH I don't hallucinate . Denies paranoia. Impulsivity: Hiel under the influence Depression: History of, states only feeling depressed when drinking and things, feeling hopeless Anxiety/panic: I have that occasionally yes used to worry about getting arrested but I don't drink anymore, so I don't worry about it Trauma sx: hx of nightmares, all the time , having them all my life . Reports hx of flashbacks, no lately . Denies startle response or hypervigilance. ROS Sleep: I have normal sleep and I nap during the day sometimes when I have a place to live . Appetite: Fair Energy: normal Motivation: normal , I love to bathe and wear clean clothing Irritability: I don't, it takes a lot to irritate me Anxiety - not presently Depression - Would rate a 8/10 with 10 being the worst Screening Navajo Suicide Severity Rating Scale (LF) Do you want to initiate with: Screener form ?[Embedded Image Not Availab le] Suicidal Thoughts: Have you actually had any thoughts of killing yourself?: No ?[Embedded Image Not Availab le] est of your ability.: Has there ever been a time period when you were not your usual self and... You felt so good or hyper th t other people thought you were not your normal self or you were so hyper that you got into trouble?: Yes . You were so irritable that y ou shouted at people or started fights or arguments?: Yes . You got much less sleep than usual and found that you didn't really miss it?: No . You felt much more self-conf ident than usual?: Yes . You were more talkative or s poke much faster than usual?: No .Patient states, The ones he said yes to were under the influence. Thoughts raced through your head or you couldn't slow your mind down?: Yes . You were so easily distracte d by things around you that you had trouble concentrating or staying on track?: Yes . You had more energy than usual?: Yes . You were more active or did many more things than usual?: Yes . You were more social or outg oing than usual, for example, you telephoned friends in the middle of the night?: Yes . You were more interested in sex than usual?: No . You did things that were usu al for you or that other people might have thought were excessive, foolish, or risky?: No . Spending money got you or yo ur family in trouble?: Yes . If you checked YES to more t baxter one of the above, have several of these ever happened during the same period of time?: No . How much of a problem did an y of these cause you - like being unable to work; having family, money or legal troubles; getting into arguments or fights?: Serious problem .Patient states, it's not a problem anymore and it was only a problem under influence. CSSRS Interpretation and Follow Up Plan CSSRS Interpretation and Follow Up Plan CSSRS Screen documented using SF: Yes Risk Disposition from SF: Low - No Follo w Up Plan Required Follow Up Plan: No Follow Up Plan requir ed at this time. 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 tive MEMORY Adequate EYE CONTACT Good AFFECT Euthymic MOOD Euthymic SPEECH QUANTITY Appropriate SPEECH QUALITY Spontaneous , Approp riate volume THOUGHT PROCESS Coherent and goal di rected THOUGHT CONTENT No evidence of delus ional content , No reports of paranoia MOTOR ACTIVITY Relaxed SUICIDAL IDEATION Denies SI or thought s of self harm HOMICIDAL IDEATION Denies homicidal lokesh ation or thoughts of aggression HALLUCINATIONS Does not appear to b e responding to internal stimuli or seeing hallucinations in the room INSIGHT Fair to Adequate JUDGMENT Fair to Adequate FUND OF KNOWLEDGE Adequate ABILITY TO PARTICIPATE IN TREATMENT Adeq uate WILLINGNESS TO PARTICIPATE IN TREATMENT Adequate LANGUAGE Appropriate- WNL
--- OUTSIDE RECORDS SUMMARY | 2024-05-13 12:19 | XMS_ITS | Clinical Summary ---
Author Organization [facility] Address [address] [place] [address] Phone Care Team Providers Care Ramp Flight Attendant Name Role Phone Lauro Peck MD Unavailable [phone] Julian Fitch MD Unavailable [phone] Cody Rice APRN, OUTPATIENT THERAPIST Primary Care Pr ovider Bassem Newman MD Unavailable [phone] Danni Babb Unavailable Unavailable Allergies No known active allergies Medications ondansetron (Zofran) 8 MG TabletIndicatio ns:Oropharynx cancer (HCC) Take 1 Tablet by mouth every 8 hours as needed for Nausea - 1st line. 20 Tablet 2 12/01/19 24 Active prochlorperazin e (COMPAZINE) 10 MG TabletIndicatio ns:Oropharynx cancer (HCC) Take 1 Tablet by mouth every 6 hours as needed for Nausea - 2nd line. 40 Tablet 2 12/01/19 24 Active Loperamide HCl (Loperamide A-D) 2 MG TabletIndicatio ns:Oropharynx cancer (HCC) Take 1 Tablet by mouth See Admin Instructions. Take 2 tablets (4 mg) at the onset of diarrhea, then one tablet (2 mg) with every subsequent episode of diarrhea for a maximum of 16 mg/day. Discontinue loperamide 12 hours after diarrhea resolves. 100 Tablet 1 12/01/19 24 Active citalopram (CeleXA) 10 MG/5ML Solution Take 10 mL by mouth daily. 300 mL 5 12/15/19 24 Active naproxen (NAPROSYN) 500 MG Tablet Take 1 Tablet by mouth 2 times daily (with meals). 60 Tablet 2 12/27/19 24 Active COMPOUNDED MEDICATION 5 mL by Swish & Spit route 4 times daily (after meals and nightly). for mouth/throat discomfort. Pharmacist Mixture Instructions *ALUM & MAG HYDROXIDE-SIMETH 200-200-20 MG/5ML PO SUSP -- 240 mL *DIPEHENHYDRAMIN E HCL 12.5 MG/5ML PO ELIX -- 120 mL *LIDOCAINE VISCOUS 2% MT SOLN -- 100 mL 460 mL 1 01/17/20 24 Active magnesium oxide 400 MG TabletIndicatio ns:Low blood magnesium level Take 400 mg by mouth daily. 90 Tablet 02/01/20 24 Active COMPOUNDED MEDICATIONIndic ations:Oral thrush Take 10 mL by mouth 4 times daily (before meals and nightly). Swish and swallow Pharmacist Mixture Instructions *ALUM & MAG HYDROXIDE-SIMETH 200-200-20 MG/5ML PO SUSP -- 120 mL *DIPEHENHYDRAMIN E HCL 12.5 MG/5ML PO ELIX -- 60 mL *LIDOCAINE VISCOUS 2% MT SOLN -- 30 mL *NYSTATIN SOLUTION -- 60ml 270 mL 02/01/20 24 Active HYDROcodone-halie taminophen (NORCO) 5-325 MG TabletIndicatio ns:Squamous cell carcinoma of larynx (HCC) Take 1 Tablet by mouth every 12 hours as needed for Moderate or more severe pain. 60 Tablet 03/12/20 24 Active naproxen (NAPROSYN) 500 MG Tablet Take 1 Tablet by mouth 2 times daily (with meals). 60 Tablet 03/29/20 24 Active folic acid (FOLVITE) 1 MG Tablet Take 1 mg by mouth daily. 02/22/20 24 025 Active hydrOXYzine (VISTARIL) 50 MG Capsule Take 50 mg by mouth. 02/22/20 24 Active Lidocaine Viscous HCl (XYLOCAINE) 2 % Solution 01/17/20 24 Active ASPIRIN PO Take by mouth as needed. Active ampicillin (PRINCIPEN) 500 MG Capsule Take 1 Capsule by mouth every 6 hours. 40 Capsule 04/17/20 24 Active pregabalin (Lyrica) 75 MG CapsuleIndicati ons:Other chronic pain Take 1 Capsule by mouth 3 times daily. 90 Capsule 1 05/04/19 25 Active loratadine-pseu doephedrine (Claritin-D 24 Hour) 10-240 MG TABLET SR 24 HRIndications:E ustachian tube dysfunction, bilateral Take 1 Tablet by mouth daily for 30 days. 30 Tablet 03/23/20 24 025 Lyrica 25 MG CapsuleIndicati ons:History of therapeutic radiation,Oroph arynx cancer (HCC) Take 3 Capsules by mouth 2 times daily for 30 days. 180 Capsule 03/28/20 24 025 cephALEXin (Keflex) 500 MG Capsule Take 1 Capsule by mouth 4 times daily for 10 days. 40 Capsule 04/06/20 24 024 sulfamethoxazol e-trimethoprim DS (Bactrim DS) 800-160 MG Tablet Take 1 Tablet by mouth 2 times daily for 10 days. 20 Tablet 04/06/20 24 024 nystatin (MYCOSTATIN) 945579 UNIT/ML Suspension Take 5 mL by mouth 4 times daily for 10 days. Swish and swallow 200 mL 04/09/20 24 025 pregabalin (Lyrica) 50 MG CapsuleIndicati ons:Other chronic pain Take 1 Capsule by mouth 3 times daily. 90 Capsule 1 05/04/19 25 025 Discontinu ed(Reorder ) pregabalin (Lyrica) 50 MG CapsuleIndicati ons:Other chronic pain Take 1 Capsule by mouth 3 times daily. 90 Capsule 1 05/04/19 25 025 Discontinu ed(Dose adjustment ) Active Problems Problem Noted Date Diagnosed Date [...] major contributor to his chronic social issues. Resolved Problems Problem Noted Date Diagnosed Date [...] 09/24/2015 01/21/2022 History of ETOH abuse 2021 Encounters Date Type Department Care Team Description 05/11/2024 [facility] [place] [facility] [address] [place] [address] Lauro Peck MD 05/09/2024 9:54 AM PASTEURIZER HELPER - 05/09/2024 11:59 PM PASTEURIZER HELPER [facility] [address] [place] [phone] Julian Fitch MD Discharge Disposition: Discharged to home or Selfcare 05/09/2024 Travel 05/08/2024 [facility] Assistant Manager Management [address] [place] [phone] Danni Babb Care Management (Monthly monitoring call-(Apr)) 05/04/20[facility] [address] [place] [address] Paulina Forde APRN, OUTPATIENT THERAPIST Medication Refill 05/03/2024 [facility]phone [facility] [address] [place] [address] Cody Rice APRN, OUTPATIENT THERAPIST Advice Only; Medication Management 04/25/2024 [facility] Outreach [facility] Assistant Manager Management [address] [place] [phone] Alisson Shaw academic associate of Care (TCM week 1) 04/19/2024 [facility] Assistant Manager Management [address] [place] [address] Viviane Torres RN Transition of Care (Post Discharge Call ) 04/17/2024 3:52 PM PASTEURIZER HELPER - 04/17/2024 5:40 PM PASTEURIZER HELPER Emergency [facility] Emergency [address] [place] [phone] Discharge Disposition: LWBS 04/17/2024 Travel 04/17/2024 Results [facility] [address] [place] [address] Lorne Hazel, DANIELLE 04/17/2024 [facility]phone [facility] [address] [place] [address] Lorne Hazel, POLITICAL SCIENTIST Follow-up (wound culture) 04/15/2024 Patient Outreach [facility] Entry Level Assistant Manager Management [address] [place] [address] Evelyn Tee RN Transition of Care (Post discharge, initial call ) 04/14/2024 10:04 AM PASTEURIZER HELPER - 04/14/2024 11:14 AM PASTEURIZER HELPER [facility] [address] [place] [address] Bre Joyce APRN, OUTPATIENT THERAPIST Paronychia of left thumb Discharge Disposition: Discharged to home or Selfcare 04/14/2024 Travel 04/13/2024 Patient Outreach [facility] Entry Level Assistant Manager Management [address] [place] [phone] Flori Cruz RN Transition of Care (Transition of care week 1) 04/12/2024 9:11 AM PASTEURIZER HELPER - 04/12/2024 11:59 PM PASTEURIZER HELPER Hospital [facility] Radiology [address] [place] [address] Paulina Forde, CARE ASSOCIATE, OUTPATIENT THERAPIST Celia Jenkins, MS [facility]-TEST [facility]AD[facility] Discharge Disposition: Discharged to home or Selfcare 04/10/2024 Patient Outreach [facility] Entry Level Assistant Manager Management [address] [place] [address] Danni Babb 04/09/2024 2:40 PM PASTEURIZER HELPER [facility] [address] [place] [address] Lauro Peck MD Baxley, Brandy M, CARE ASSOCIATE, OUTPATIENT THERAPIST Acute radiation dermatitis (Primary Dx); Squamous cell carcinoma of larynx (HCC); History of head and neck radiation; History of cancer chemotherapy Discharge Disposition: Discharged to home or Selfcare 04/09/2024 Travel 04/07/2024 [facility] Assistant Manager Management [address] [place] [address] Lidia Jc RN Transition of Care (General Post Discharge Follow Up) 04/06/2024 2:47 PM PASTEURIZER HELPER - 04/06/2024 6:56 PM PASTEURIZER HELPER [facility] [address] [place] [phone] Ayo Marie, ESTELA Throat pain Discharge Disposition: Discharged to home or Selfcare 04/06/2024 Travel 04/06/2024 [facility] [address] [place] [phone] Lauro Peck MD 04/06/2024 [facility] Outreach [facility] Assistant Manager Management [address] [place] [address] Lia Chamberlain, BRANCH OFFICER Care Management (Request for prescription refill) 03/29/2024 Patient Outreach [facility] Entry [facility] Assistant Manager Management [address] [place] [address] Viviane Torres RN Patient Outreach (TOC1 ) 03/28/2024 [facility]phone [facility] [address] [place] [phone] Lauro Peck MD Medication Refill 03/24/2024 [facility] Assistant Manager Management [address] [place] [phone] Viviane Torres RN Transition of Care (Post Discharge Call ) 03/23/2024 3:06 AM PASTEURIZER HELPER - 03/23/2024 3:52 AM PASTEURIZER HELPER [facility] [address] [place] [address] Sylvester Chawla MD Otalgia of both ears Discharge Disposition: Discharged to home or Selfcare 03/23/2024 Travel 03/16/2024 [facility] Outreach [facility] Assistant Manager Management [address] [place] [address] Evelyn Tee RN Transition of Care (Week #1 ) 03/13/2024 9:30 AM PASTEURIZER HELPER [facility] [address] [place] [phone] Julian Fitch MD Oropharynx cancer (HCC) (Primary Dx); History of therapeutic radiation; History of cancer chemotherapy; Acute radiation dermatitis; Dysgeusia; Adverse effect of radiation, subsequent encounter Discharge Disposition: Discharged to home or Selfcare 03/13/2024 Travel 03/12/2024 [facility] [address] [place] [phone] Lauro Peck MD Medication Refill 03/12/2024 [facility] Assistant Manager Management [address] [place] [address] Lisa Ontiveros LPN Care Management (Monthly monitor call) 03/08/2024 Patient Outreach [facility] Entry Level Assistant Manager Management [address] [place] [address] Viviane Torres academic associate of Care (Post Discharge Call ) 03/07/2024 10:12 AM PASTEURIZER HELPER - 03/07/2024 1:14 PM PASTEURIZER HELPER [facility] [address] [place] [address] Alvin Kenney MD Viral pharyngitis Discharge Disposition: Discharged to home or Selfcare 03/07/2024 Travel 02/27/2024 11:40 AM PASTEURIZER HELPER [facility] [address] [place] [phone] Lauro Peck MD Pure hypercholesterolemia (Primary Dx); Oropharynx cancer (HCC); Cannabis abuse; Alcohol abuse; History of cancer chemotherapy; Pain, neoplasm-related Discharge Disposition: Discharged to home or Selfcare 02/27/2024 11:30 AM PASTEURIZER HELPER [facility] [address] [place] [phone] Julian Fitch MD Oropharynx cancer (HCC) (Primary Dx); History of therapeutic radiation; History of cancer chemotherapy; Cannabis abuse; Alcohol abuse Discharge Disposition: Discharged to home or Selfcare 02/27/2024 Travel 02/20/2024 Documentation Only [facility] Services [address] [place] [phone] Julian Fitch MD 02/20/2024 Patient Outreach [facility] Entry Level Assistant Manager Management [address] [place] [address] Saira Do academic associate of Care (Week 1) 02/14/2024 Patient Outreach [facility] Entry Level Assistant Manager Management [address] [place] [address] Alisson Shaw RN Transition of Care (TCM 1st attempt) 02/13/2024 8:15 AM CDT - 02/13/2024 9:15 AM CDT Emergency [facility] [address] [place] [address] Alvin Kenney MD Ionizing radiation burn Discharge Disposition: Discharged to home or Selfcare 02/13/2024 Travel from Last 3 Months Immunizations Immunization Administration Dates Next Due Covid-19 Vaccine, Vector-nr, Rs-ad26, Pf, 0.5 Ml (Clarient/J&J) 12/25/2020 Influenza Vaccine 01/10/2016,03/03/2015 Influenza Vaccine, Quadrivalent, PF 01/16,01/14/2023,05/24/2020,01/01,03/09/2018 Influenza, Seasonal, Injecta ble, Undefined 03/03/2015 Pneumococcal Vaccine Adult - 23 Valent 6 Pneumococcal conjugate PCV20 , polysaccharide [id number] conjugate, adjuvant, PF 11/11/2023 TB Skin Test 02/26/2016 TD VACCINE 01/02/2020 TDAP Vaccine 11/18/2015 Tuberculin Skin Test; Zara ed Protein Derivative Solutiol 02/26/2016,02/12/2016,02/12/2016 Family History Medical History Relation Name Comments No Known Problems Father Heart Attack Mother Relation Name Status Comments Father Alive Mother Social History Tobacco Use Types Packs/Day Years Used Date Smoking Tobacco: Some Days Cigars Smokeless Tobacco: Never Tobacco Cessation:Ready to Q uit: Not Asked; Counseling Given: Not Answered Alcohol Use Standard Drinks/Week Comments Yes 0 (1 standard drink = 0.6 oz pure alcohol) say's he bindges and drinks too much from time to time [employer] Answer Date Recorded In the past 12 months has [place], gas, oil, or water [employer] threatened to shut off services in your [...] often do you attend chur ch or buddhism services? More than 4 times per year 12/28/2023 Do you belong to any clubs o r organizations such as sabianism groups, unions, fraternal or athletic groups, or [...] Total Score - Questions 1-9 0 12/17 [facility] of Occupat ional [facility] - Occupational Stress Questionnaire Answer Date Recorded [...] place to sleep or slept in a jail (including now)? Yes 06/13/2023 Housing Stability Vital Sign Answer Homer e Recorded In the last 12 months, was t here a time when you were not able to pay the mortgage or rent on time? Yes 12/28/2023 In the past 12 months, how m any times have you moved where you were living? 3 12/28/2023 At any time in the past 12 m [facility], were you homeless or living in a jail (including now)? Yes 12/28/2023 Sexually Active Control Partners Comments Not Currently Sex and Gender Information Value Date Recorded Sex Assigned at Male 12/03/2023 4:33 AM CDT Legal Sex Male 8:47 PM CDT Gender Identity Male 12/03/2023 4:33 AM CDT Sexual Orientation Not on file Last Filed Vital Signs Vital Sign Reading Time Taken Comments Blood Pressure 107/88 04/17/2024 3:56 PM PASTEURIZER HELPER Pulse 63 04/17/2024 3:56 PM PASTEURIZER HELPER Temperature 36 ??C (96.8 ??F) 04/17/2024 3:56 PM PASTEURIZER HELPER Respiratory Rate 18 04/17/2024 3:56 PM PASTEURIZER HELPER Oxygen Saturation 98% 04/17/2024 3:56 PM PASTEURIZER HELPER Inhaled Oxygen Concentration - - Weight 69.4 kg (153 lb) 04/17/2024 3:56 PM PASTEURIZER HELPER Height 175.3 cm (5' 9 ) 04/17/2024 3:56 PM PASTEURIZER HELPER Body Mass Index 22.59 04/17/2024 3:56 PM PASTEURIZER HELPER Plan of Treatment Upcoming Encounters Date Type Department Care Team (Latest Contact Info) Description 05/14/2024 2:30 PM PASTEURIZER HELPER [facility] [address] [place] [phone] Paulina Forde, CARE ASSOCIATE, OUTPATIENT THERAPIST [address] [place] [address] Discharge Disposition: Discharged to home or Selfcare 05/17/2024 1:45 PM PASTEURIZER HELPER Physical [facility] [address] [place] [address] Kaylen Iglesias, PT [place] Discharge Disposition: Discharged to home or Selfcare Health Maintenance Due Date Last Done Comments Zoster Immunization (1 of 2) 02/21/1987 Colonoscopy 02/21/2013 Cologuard 02/21/2018 Colorectal Cancer Screening 12/06/2019 Immunochemical Fecal Occult Blood 12/04/2020 12/05/2019 Td Immunization Every 10 Years (Adults With 1 Tdap) 01/01/2030 01/02/2020, 11/18/2015 Respiratory Syncytial Virus (RSV) Immunization (Adult) (1 - 1-dose 75+ series) 02/21/2043 DTaP/Tdap/Td Immunization Discontinued 01/02/2020, 05/2015 SARS-COV-2 Immunization Discontinued 12/25/2020 Hepatitis C Virus (HCV) Screening Completed 05/24/2023, 01/04/2023 PSA Discussion Completed 05/24/2023 Pneumococcal Immunization (50+ years) Completed 11/11/2023, 01/10/2016 Pneumococcal Immunization Combined Discontinued 11/11/2023, 01/10/2016 Influenza Immunization Completed , 01/27/2023, 01/14/2023, Additional history exists Hepatitis B Immunization Discontinued Meningococcal Immunization (ACWY) Aged Out No longer eligible based on patient's age to complete this topic Rotavirus Immunization Aged Out No lo nger eligible based on patient's age to complete this topic Goals Goal Patient Goal Type Associated Problems Recent Progress Patient-Stated? Author Make and Keep All Appointments Patient Goals On track( 9:13 AM CDT) No Lia Chamberlain LSW Note: Follow Up Date week of 03/21/2024 - arrange a ride through an agency 1 week before appointment - ask family or friend for a ride - keep a calendar with appointment dates SW CM will help patient obtain Free Ride Bus Pass for [facility] Why is this important? Part of staying healthy is seeing the doctor for follow-up care. If you forget your appointments, there are some things you can do to stay on track. Notes: ACP visit Patient Goals On track( 9:13 AM CDT) Lia Chavez LSW Note: Follow Up Date of 04/10 - complete a living will - name a health care proxy (decision maker) Discusses wishes with my loved ones Notify Care Management when ready to schedule ACP appointment Why is this important? Having a long-term illness can be scary. It can also be stressful for you and your caregiver. These steps may help. Notes: Procedures Procedure Name Priority Date/Time Associated Diagnosis Comments PET CT TUMOR IMAGING SKULL BASE TO MID THIGH Routine 05/09/2024 3:10 PM PASTEURIZER HELPER Oropharynx cancer (HCC) History of therapeutic radiation History of cancer chemotherapy CULTURE, AEROBIC STAT 04/14/2024 11:0 4 AM PASTEURIZER HELPER INCISION AND DRAINAGE Routine 04/14/2024 10:52 AM PASTEURIZER HELPER XR SWALLOWING FUNCTION STUDY WITH VIDEO/CINE Less Than 2 weeks 04/12/2024 9:52 AM PASTEURIZER HELPER Acute radiation dermatitis CORINA GARCIA HEPARIN/SST TOP TUBE STAT 04/06/2024 4:47 PM PASTEURIZER HELPER LAVENDER TOP TUBE STAT 04/06/2024 4:4 7 PM PASTEURIZER HELPER EXTRA TUBES STAT 04/06/2024 4:47 PM PASTEURIZER HELPER INCISION AND DRAINAGE Routine 04/06/2024 4:31 PM PASTEURIZER HELPER GROUP A STREP BY PCR STAT 03/07/2024 10:34 AM PASTEURIZER HELPER HEPATITIS C ANTIBODY Routine 05/24/2023 10:35 AM PASTEURIZER HELPER Encounter for hepatitis C virus screening test for high risk patient PSA SCREEN Routine 05/24/2023 10:35 AM PASTEURIZER HELPER Screening for prostate cancer from Last 3 Months or Most Recently Relevant to Health Maintenance Results * PET CT TUMOR IMAGING SKULL BASE TO MID THIGH (05/09/2024 3:10 PM PASTEURIZER HELPER) Anatomical Region Laterality Modality BODY N/A Positron Emissio n Tomography (PET) 05/10/2024 9:07 AM PASTEURIZER HELPER Impressions 05/10/2024 9:09 AM PASTEURIZER HELPER IMPRESSION: Post treatment changes in the head and neck with metabolic resolution of the previous hypermetabolic oropharyngeal mass and cervical lymphadenopathy. No evidence of FDG avid distant metastasis. Patchy opacities in the left lower lobe new from the prior study thought likely to be infectious/inflammatory, three-month follow-up chest CT recommended. ?? Narrative 05/10/2024 9:09 AM PASTEURIZER HELPER EXAM DESCRIPTION: ?? PET CT TUMOR IMAGING SKULL BASE TO MID THIGH REASON FOR STUDY: Oropharyngeal head neck cancer status postradiation completed 02/07/2024 and chemotherapy 02/08/2024, PET-CT for restaging and subsequent treatment strategy. RADIOPHARMACEUTICAL: 11.0 ??mCi F-18 Fluorodeoxyglucose (FDG) via a ?? right antecubital ??IV site. TECHNIQUE: The patient's fasting blood glucose level, measured by glucometer before injection of FDG, was ??89 ??mg/dL. ??After intravenous administration of FDG, noncontrast CT images were obtained for attenuation correction and for fusion with emission PET images to allow for anatomical localization of PET findings. ?? Emission PET images were then obtained. The area imaged spanned the region from the skull base to the thighs. The uptake time was approximately ??60 ??minutes. SUV max was normalized to body weight. COMPARISON: PET-CT 12/13/2023. FINDINGS: For reference, a region of interest of the ascending thoracic aorta has a maximal SUV of ??2.1 . ??For reference, a region of interest of the right hepatic lobe of the liver has a maximal SUV of ??2.1. The injection site is not included. ??There is prominent radiotracer activity along the right upper extremity venous system, this may reflect clearance of extravasated radiotracer. Head: ??Normal FDG uptake is seen in the included portion of the brain. Neck: ??There are post treatment changes in the head neck with induration of the soft tissues. ??The previous hypermetabolic uptake of the oropharynx and the previous hypermetabolic cervical lymphadenopathy shows metabolic resolution. ??There is thickening of the soft tissues of the oral cavity, oropharynx and supraglottic larynx without a discrete hypermetabolic mass. Chest: ??No hypermetabolic pulmonary nodule or mass. ??There are patchy opacities in the left lower lobe new from the prior study thought likely to be infectious/inflammatory with only low level metabolic activity, continued attention on follow-up imaging will be needed. ??There is a fat containing left Bochdalek's hernia. ??There is a small pericardial effusion. ??Coronary artery calcifications are noted. Abdomen and Pelvis: Liver and spleen demonstrate normal activity without focal abnormal FDG uptake. Gallbladder is unremarkable. ?? Pancreas and both adrenal glands demonstrate normal FDG activity. Normal genitourinary and gastrointestinal activity is seen. There are no hypermetabolic lymph nodes in the abdomen and pelvis. Bones: No acute or aggressive appearing osseous lesions are seen. THIS IS AN ELECTRONICALLY VERIFIED FINAL REPORT 05/10/2024 9:07 AM - Electronically signed by ??Buddy Willis M.D. CH: CH D: ??05/10/2024 9:07 AM T: ??05/10/2024 9:07 AM Report ID: [id number] Reading Location: ??[id number] Procedure Note Buddy Willis Jr., MD - 05/10/2024 EXAM DESCRIPTION: PET CT TUMOR IMAGING SKULL BASE TO MID THIGH REASON FOR STUDY: Oropharyngeal head neck cancer status postradiation completed 02/07/2024 and chemotherapy 02/08/2024, PET-CT for restaging and subsequent treatment strategy. RADIOPHARMACEUTICAL: 11.0 mCi F-18 Fluorodeoxyglucose (FDG) via a right antecubital IV site. TECHNIQUE: The patient's fasting blood glucose level, measured by glucometer before injection of FDG, was 89 mg/dL. After intravenous administration of FDG, noncontrast CT images were obtained for attenuation correction and for fusion with emission PET images to allow for anatomical localization of PET findings. Emission PET images were then obtained. The area imaged spanned the region from the skull base to the thighs. The uptake time was approximately 60 minutes. SUV max was normalized to body weight. COMPARISON: PET-CT 12/13/2023. FINDINGS: For reference, a region of interest of the ascending thoracic aorta has a maximal SUV of 2.1 . For reference, a region of interest of the right hepatic lobe of the liver has a maximal SUV of 2.1. The injection site is not included. There is prominent radiotracer activity along the right upper extremity venous system, this may reflect clearance of extravasated radiotracer. Head: Normal FDG uptake is seen in the included portion of the brain. Neck: There are post treatment changes in the head neck with induration of the soft tissues. The previous hypermetabolic uptake of the oropharynx and the previous hypermetabolic cervical lymphadenopathy shows metabolic resolution. There is thickening of the soft tissues of the oral cavity, oropharynx and supraglottic larynx without a discrete hypermetabolic mass. Chest: No hypermetabolic pulmonary nodule or mass. There are patchy opacities in the left lower lobe new from the prior study thought likely to be infectious/inflammatory with only low level metabolic activity, continued attention on follow-up imaging will be needed. There is a fat containing left Bochdalek's hernia. There is a small pericardial effusion. Coronary artery calcifications are noted. Abdomen and Pelvis: Liver and spleen demonstrate normal activity without focal abnormal FDG uptake. Gallbladder is unremarkable. Pancreas and both adrenal glands demonstrate normal FDG activity. Normal genitourinary and gastrointestinal activity is seen. There are no hypermetabolic lymph nodes in the abdomen and pelvis. Bones: No acute or aggressive appearing osseous lesions are seen. THIS IS AN ELECTRONICALLY VERIFIED FINAL REPORT 05/10/2024 9:07 AM - Electronically signed by Buddy Willis M.D. CH: Report ID: [id number] Reading Location: [id number] IMPRESSION: Post treatment changes in the head and neck with metabolic resolution of the previous hypermetabolic oropharyngeal mass and cervical lymphadenopathy. No evidence of FDG avid distant metastasis. Patchy opacities in the left lower lobe new from the prior study thought likely to be infectious/inflammatory, three-month follow-up chest CT recommended. Julian Fitch MD IMG PET Final R esult * Culture, Aerobic, Wound [id number] (04/14/2024 11:04 AM PASTEURIZER HELPER) CULTURE RESULTS STREPTOCOCCUS ANGINOSUS 04/15/2024 8:29 PM PASTEURIZER HELPER [facility] Comment:DRUG OF CHOICE IS AM PICILLIN OR PENICILLIN Culture SPECIMEN COLLECTION BY DRAINAGE / Unknown Non-Phlebotomy Collection / Unknown 04/14/2024 11:04 AM PASTEURIZER HELPER 04/14/2024 11:13 AM PASTEURIZER HELPER Bre Joyce CARE ASSOCIATE, OUTPATIENT THERAPIST MICROBIOLOGY - GENERA L ORDERABLES Final Result [facility] [address] [place] [address], * Incision and Drainage (04/14/2024 10:52 AM PASTEURIZER HELPER) Narrative Alvin Kenney MD - 04/14/2024 10:52 AM PASTEURIZER HELPER Bre Joyce APRN, CNP ? 04/14/2024 11:06 AM Incision and Drainage Performed by: Bre Joyce APRN, CNP Authorized by: Bre Joyce APRN, CNP ?? Consent: ??Consent obtained: ??Verbal ??Consent given by: ??Patient ??Risks, benefits, and alternatives were discussed: yes ?Risks discussed: ??Bleeding, incomplete drainage, pain and infection ??Alternatives discussed: ??No treatment, delayed treatment and referral [place] protocol: ??Procedure explained and questions answered to patient or proxy's satisfaction: yes ?Patient identity confirmed: ??Verbally with patient and arm band Location: ??Indications for incision and drainage: Paronychia. ??Location: ??Upper extremity ??Upper extremity location: ??Finger ??Finger location: ??L thumb Pre-procedure details: ??Skin preparation: ??Chlorhexidine with alcohol Sedation: ??Sedation type: ??None Anesthesia: ??Anesthesia method: ??None Procedure type: ??Complexity: ??Simple Procedure details: ??Needle aspiration: yes ?Needle size: ??18 G ??Incision types: ??Stab incision ??Drainage: ??Purulent ??Drainage amount: ??Moderate ??Wound treatment: ??Wound left open Post-procedure details: ??Procedure completion: ??Tolerated well, no immediate complications Bre Joyce APRN, CNP PROCEDURE/MINOR SURGI CRISTAL ORDERABLES Final Result * XR SWALLOWING FUNCTION STUDY WITH VIDEO/CINE (04/12/2024 9:52 AM PASTEURIZER HELPER) Anatomical Region Laterality Modality GI, Abdomen N/A Digital Radiogra phy 04/12/2024 10:2 8 AM PASTEURIZER HELPER Impressions 04/12/2024 10:31 AM PASTEURIZER HELPER IMPRESSION: ?? Aspiration of thin liquids and nectar thick liquids, as above. Please correlate with Speech Pathology report. Narrative 04/12/2024 10:31 AM PASTEURIZER HELPER EXAM DESCRIPTION: ?? XR SWALLOWING FUNCTION STUDY WITH VIDEO/CINE REASON FOR STUDY: ?? Laryngeal cancer with radiation and chemotherapy last treatment 2 months ago- tounge weakness, dysphagia with foods, weight loss since treatments ?? RADIATION DOSE: ??The utilized fluoroscopic equipment does not provide radiation exposure indices. ??The exposure time is 1.6 minutes and the number of fluorographic images are 7 ?? TECHNIQUE: Fluoroscopic assistance provided to Speech Pathology Department who performed the exam. The patient was brought into the fluoro room and placed upright on a modified barium swallow chair. ??The patient was then given multiple consistencies mixed with barium to swallow under live fluoroscopic video guidance. COMPARISON: ?? 05/30/2023. FINDINGS: ?? There is significant oral and pharyngeal residue with multiple consistencies. ??Swallow initiation with bolus at piriform sinus level. ??There is a esophageal retention. ??There is aspiration of thin liquids. ??There is aspiration of nectar thick liquids, which is improved with chin tuck. ??There is penetration of all trialed consistencies. THIS IS AN ELECTRONICALLY VERIFIED FINAL REPORT 04/12/2024 10:28 AM - Electronically signed by ??Joselito Mandujano M.D. MZ: BERTHA D: ??04/12/2024 10:28 AM T: ??04/12/2024 10:28 AM Report ID: [id number] Reading Location: ??[id number] Procedure Note Joselito Mandujano MD - 04/12/2024 EXAM DESCRIPTION: XR SWALLOWING FUNCTION STUDY WITH VIDEO/CINE REASON FOR STUDY: Laryngeal cancer with radiation and chemotherapy last treatment 2 months ago- tounge weakness, dysphagia with foods, weight loss since treatments RADIATION DOSE: The utilized fluoroscopic equipment does not provide radiation exposure indices. The exposure time is 1.6 minutes and the number of fluorographic images are 7 TECHNIQUE: Fluoroscopic assistance provided to Speech Pathology Department who performed the exam. The patient was brought into the fluoro room and placed upright on a modified barium swallow chair. The patient was then given multiple consistencies mixed with barium to swallow under live fluoroscopic video guidance. COMPARISON: 05/30/2023. FINDINGS: There is significant oral and pharyngeal residue with multiple consistencies. Swallow initiation with bolus at piriform sinus level. There is a esophageal retention. There is aspiration of thin liquids. There is aspiration of nectar thick liquids, which is improved with chin tuck. There is penetration of all trialed consistencies. THIS IS AN ELECTRONICALLY VERIFIED FINAL REPORT 04/12/2024 10:28 AM - Electronically signed by Joselito Mandujano M.D. MZ: BERTHA Report ID: [id number] Reading Location: [place] [address] IMPRESSION: Aspiration of thin liquids and nectar thick liquids, as above. Please correlate with Speech Pathology report. Paulina Forde CARE ASSOCIATE, OUTPATIENT THERAPIST IMG FLUOROSCOPY ORDERA BLES Final Result * CORINA GARCIA HEPARIN/SST TOP TUBE (04/06/2024 4:47 PM PASTEURIZER HELPER) Blood No Phlebotomy Charged / Unknown 04/06/2024 4:47 PM PASTEURIZER HELPER 04/06/2024 5:31 PM PASTEURIZER HELPER Result [facility] Ayo Marie PAC HEMATOLOGY ORDERABLE S Final Result Performing Organization Address [facility] Co de Phone Number [facility] [place] [address] * Lavender Top Tube (04/06/2024 4:47 PM PASTEURIZER HELPER) Blood No Phlebotomy Charged / Unknown 04/06/2024 4:47 PM PASTEURIZER HELPER 04/06/2024 5:31 PM PASTEURIZER HELPER Ayo Marie PAC HEMATOLOGY ORDERABLE S Final Result Performing Organization Address City/[facility] Co de Phone Number [facility] [place] [address] * Incision and Drainage (04/06/2024 4:31 PM PASTEURIZER HELPER) Narrative Montrell Quiroga MD - 04/06/2024 4:31 PM PASTEURIZER HELPER Ayo Marie PAC ? 04/06/2024 ??6:49 PM Incision and Drainage Performed by: Ayo Marie PAC Authorized by: Ayo Marie PAC ?? Consent: ??Consent obtained: ??Verbal and written ??Consent given by: ??Patient ??Risks, benefits, and alternatives were discussed: yes ?Risks discussed: ??Incomplete drainage, infection, pain and bleeding ??Alternatives discussed: ??Alternative treatment [place] protocol: ??Procedure explained and questions answered to patient or proxy's satisfaction: yes ?Relevant documents present and verified: yes ?Test results available : yes ?Required blood products, implants, devices, and special equipment available: yes ?Site/side marked: yes ?Immediately prior to procedure, a time out was called: yes ?Patient identity confirmed: ??Verbally with patient, hospital-assigned identification number and arm band Location: ??Type: ??Abscess ??Location: ??Upper extremity ??Upper extremity location: ??Finger ??Finger location: ??L thumb Pre-procedure details: ??Skin preparation: ??Chlorhexidine with alcohol Sedation: ??Sedation type: ??None Anesthesia: ??Anesthesia method: ??Nerve block ??Block needle gauge: ??25 G ??Block anesthetic: ??Lidocaine 1% w/o epi ??Block injection procedure: ??Anatomic landmarks identified, introduced needle, anatomic landmarks palpated, negative aspiration for blood and incremental injection ??Block outcome: ??Anesthesia achieved Procedure type: ??Complexity: ??Simple Procedure details: ??Ultrasound guidance: no ?Needle aspiration: no ?Incision types: ??Stab incision ??Incision depth: ??Dermal ??Drainage: ??Bloody ??Drainage amount: ??Scant ??Wound treatment: ??Wound left open ??Packing materials: ??None Post-procedure details: ??Procedure completion: ??Tolerated well, no immediate complications Ayo Marie PAC PROCEDURE/MINOR SURG ICAL ORDERABLES Final Result * GROUP A STREP BY PCR (03/07/2024 10:34 AM PASTEURIZER HELPER) [facility] GROUP A STREP BY PCR NOT DETECTED NOT DETECTED 03/07/2024 11:25 AM PASTEURIZER HELPER [facility] Swab SPECIMEN FROM THROAT / Unknown Non-Phlebotomy Collection / Unknown 03/07/2024 10:34 AM PASTEURIZER HELPER 03/07/2024 10:50 AM PASTEURIZER HELPER Alvin Kenney MD MICROBIOLOGY - GENERAL ORD ERABLES Final Result Performing Organization Address City/[facility] Co de Phone Number [facility] [place] [address] * PSA SCREEN (05/24/2023 10:35 AM PASTEURIZER HELPER) [facility] PSA SCREEN, TOTAL 0.44 <4.00 ng/mL 05/24/2023 11:57 AM PASTEURIZER HELPER [facility] Blood Venipuncture / Unknown 05/24/2023 10:35 AM PASTEURIZER HELPER 05/24/2023 10:54 AM PASTEURIZER HELPER Narrative [facility] - 05/24/2023 11:57 AM PASTEURIZER HELPER The [employer] Total PSA assay is a Chemiluminescent Microparticle Immunoassay (CMIA) for the quantitative determination of total PSA (both free PSA and PSA complexed to [id number]) in human serum. Total PSA values obtained with different assay methods, including Guzman PSA assays, cannot be used interchangeably. us Cody Rice APRN, OUTPATIENT THERAPIST CHEMISTRY ORDERA BLES Final Result Performing Organization Address [facility] Co de Phone Number [facility] [place] [address] * HEPATITIS C ANTIBODY (05/24/2023 10:35 AM PASTEURIZER HELPER) [facility] hepatitis C antibody 0.12 <1 S/CO [facility] ARCH [id number] B 05/24/2023 8:45 PM PASTEURIZER HELPER [facility] Comment: Signal/Cutoff ratio ??< 0.79 is Nondetected Signal/Cutoff ratio 0.80-0.99 is Grayzone Signal/Cutoff ratio > 0.99 is Detected Supplemental assays are recommended if signal/cutoff ratio is >/=1.00. ??Signal/cutoff ratio result >/= 5.00 is 97% predictive of positivity for recombinant immunoblot assay (RIBA) and will be reported to the [place] Department of Public Health as required. Blood Venipuncture / Unknown 05/24/2023 10:35 AM PASTEURIZER HELPER 05/24/2023 10:54 AM PASTEURIZER HELPER us Cody Rice APRN, CNP CHEMISTRY ORDERA BLES Final Result [facility] [address] [place] [address], from Last 3 Months or Most Recently Relevant to Health Maintenance Insurance MEDICAID [place] Advance Directives * Full Code (Latest Code Status on File) Date Activated Date Inactivated Comments 10/23/2019 4:35 PM 10/24/2019 5:09 PM CPR-Full Treat ment: FULL ARREST: Attempt Resuscitation/CPR wit intubation and mechanical ventilation. PRE-ARREST: Use entire range of life support measures to stabilize the patient. * Full Code Date Activated Date Inactivated Comments 03/08/2018 12:54 AM 03/09/2018 1:48 PM CPR-Full Treatment: FULL ARREST: Attempt Resuscitation/CPR wit intubation and mechanical ventilation. PRE-ARREST: Use entire range of life support measures to stabilize the patient. Care Teams Ramp Flight Attendant Relationship Specialty Start Date End Date Cody Rice APRN, RONAL [address] [address] PCP - General Advanced Practice Nurse 11/10/23 Lauro Peck MD [address] [place] [address] Consulting Physician Medical Oncology 10/27/23 Julian Fitch MD [address] [place] [address] Consulting Physician Radiation Oncology 10/27/23 Bassem Newman MD [address] [address] Consulting Physician Otolaryngology & Facial Plastic Surgery 11/14/23 [facility] Senior Cisco Network Engineer 04/10/24
--- OUTSIDE RECORDS SUMMARY | 2024-05-13 12:20 | XMS_ITS ---
Author Organization [facility] Address [address] [place] [address] Care Team Providers Care Stained Glass Glazier Name Role Phone Carolina Edmonds Primary Care Provider [phone] Caro Zarate [phone] Medications Medication SIG (Take, Route, Frequency, Duration) Notes Start Date End Date Status Acetaminophen 160 MG/5ML 20 ML Orally every 4 hours for 15 days As needed for pain on unit 05/03/2024 Active Social History Sex Assigned At : Social History Observation Description Sex Assigned At Male Encounters Encounter Location Date Provider Diagnosis [address] [place] [address] 05/03/2024 Caro Zarate Throat pain R07.0 Assessments Encounter Date Diagnosis (ICD Code) Assessment Notes Treatment Notes Treatment Clinical Notes Section Notes 05/03/2024 Throat pain (ICD-10 - R07.0) Plan Of Treatment Medication Medication Name Sig Start Date Stop Date Notes Acetaminophen 160 MG/5ML 20 ML Orally ev teena 4 hours for 15 days 05/03/2024 on unit Progress Notes * Mario LINARESDOB:1970 (54 yo M)Acc No.[id number]:05/03/2024 Patient:?Mario LINARES :1970???Age:54 Y???Sex:Male Address:[facility], [place], [place], [place] [address] * Refills? Start Acetaminophen Liquid, 160 MG/5ML, Orally, 1800 ML, 20 ML, every 4 hours, 15 days, Refills=0 Subjective: * Chief Complaints: * ??? * Medical History:? * Surgical History:? * Hospitalization/Major Diagno stic Procedure:? * Medications:? Objective: * Vitals:? * Physical Examination:? Assessment: * Assessment: 1.?Throat pain - R07.0 (Prim luh)??? Plan: * Treatment: * Procedure Codes:? * true * Date:? Generated for Benny meyers/Artemio/eTrafsmitting on:?05/13/2024 12:20 PM COMPLIANCE TESTER
--- OUTSIDE RECORDS SUMMARY | 2024-05-13 12:20 | XMS_ITS | Encounter Summary ---
Author Organization [facility] Address [address] [place] [address] Phone Care Team Providers Care Artificial Teeth Inspector Name Role Phone Ant Alba MD Primary Care Provider [phone] Syeda Mancilla RN Unavailable Unavailable Lia Chamberlain CHANNEL MARKETING COORDINATOR Unavailable Unavailab Lauro Dennis MD Unavailable [phone] Julian Fitch MD Unavailable [phone] Cody Rice APRN, HEAVY CLEANER Primary Care Pr ovider Bassem Newman MD Unavailable [phone] Danni Babb Unavailable Unavailable Reason for Visit * Reason Comments Medication Refill Encounter Details Date Type Department Care Team (Late st Contact Info) Description 08/23/2022 Refill [facility] Emergency [address] [place] [id number] Ant Alba MD [address] [place] [address] Medication Refill Social History Tobacco Use Types Packs/Day Years Used Date Smoking Tobacco: Some Days Cigars Smokeless Tobacco: Never Alcohol Use Standard Drinks/Week Comments Yes 0 (1 standard drink = 0.6 oz pure alcohol) say's he bindges and drinks too much from time to time PHQ-2 Answer Date Recorded Total Score - Questions 1-9 1 12/18 Sexually Active Control Partners Comments Not Currently Sex and Gender Information Value Date Recorded Sex Assigned at Male 12/03/2023 4:33 AM CDT Legal Sex Male 8:47 PM CDT Gender Identity Male 12/03/2023 4:33 AM CDT Sexual Orientation Not on file COVID-19 Exposure Response Date Recorded In the last 10 days, have yo u been in contact with someone who was confirmed or suspected to have Coronavirus/COVID-19? No / Unsure 08/25/2022 11:08 AM CDT documented as of this encounter Miscellaneous Notes * Telephone Encounter - Magdalena Galvan RN - 08/23/2022 4:15 PM CDT Last appt 06/29/22 - follow up 10/29/22 Per nursing clinical judgement, provider to review and approve the medication(s) order(s) if appropriate. Requested Prescriptions Pending Prescriptions Disp Refills omeprazole (PriLOSEC) 40 MG CAPSULE DELAYED RELEASE [Pharmacy Med Name: OMEPRAZOLE DR 40 MG CAPSULE] 30 Capsule 2 Sig: TAKE 1 CAPSULE BY MOUTH EVERY DAY There is no refill protocol information for this order documented in this encounter Plan of Treatment Upcoming Encounters Date Type Department Care Team (Latest Contact Info) Description 05/14/2024 2:30 PM PRODUCT DESIGN SPECIALIST [facility] [address] [place] [phone] Paulina Forde, ORACLE DATABASE ANALYST, HEAVY CLEANER [address] [place] [address] Discharge Disposition: Discharged to home or Selfcare 05/17/2024 1:45 PM PRODUCT DESIGN SPECIALIST Physical Therapy [facility] [address], [address] [phone] Kaylen Iglesias, PT [place] Discharge Disposition: Discharged to home or Selfcare documented as of this encounter Visit Diagnoses Not on filedocumented in this encounter Additional Health Concerns Infection Onset Date Last Indicated Resolved Time COVID - 19 08/25/2022 08/25/2022 09/04/2022 12:1 6 AM CDT COVID - 19 04/26/2023 04/26/2023 05/06/2023 12:1 6 AM PRODUCT DESIGN SPECIALIST R/O-TB 07/12/2023 07/29/2023 10/01/2023 12:1 6 AM CDT COVID - 19 07/16/2023 07/16/2023 07/16/2023 12:4 1 PM CDT COVID - 19 04/06/2024 04/06/2024 04/16/2024 12:1 6 AM PRODUCT DESIGN SPECIALIST Assessment Noted Time PHQ-9 Depression Total Score: 1 01/09/20 11:26 AM CDT documented as of this encounter Care Teams Artificial Teeth Inspector Relationship Specialty Start Date End Date Ant Alba MD [address] [place] [address] PCP - General Family Medicine 10/24/19 10/25/23 Cody Rice, ORACLE DATABASE ANALYST, HEAVY CLEANER #[address] [address] PCP - General Advanced Practice Nurse 11/10/23 Syeda Mancilla RN [place] Nurse [employer] Global Product Leadership 06/13/23 12/28/23 Lia Chamberlain LSW [place] Machine Strap Buckler [employer] Product Leadership 06/24/23 03/21/24 Lauro Peck MD [address] [place] [address] Consulting Physician Medical Oncology 10/27/23 Julian Fitch MD [address] [place] [address] Consulting Physician Radiation Oncology 10/27/23 Bassem Newman MD [address] [address] Consulting Physician Otolaryngology & Facial Plastic Surgery 11/14/23 [facility] Kerrick Kleaner Operator 04/10/24 documented as of this encounter
--- OUTSIDE RECORDS SUMMARY | 2024-05-13 12:20 | XMS_ITS | Clinical Summary ---
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 Primary Care Provider Allergies No known active allergies Medications pantoprazole DR (PROTONIX) 40 mg EC tablet Take 1 tablet (40 mg total) by mouth daily 3 Active ondansetron ODT (ZOFRAN-ODT) 4 mg disintegrating tablet Take 1 tablet (4 mg total) by mouth every 8 (eight) hours as needed for nausea or vomiting 20 tablet 3 Active acetaminophen (TYLENOL) 500 mg tablet Take 2 tablets (1,000 mg total) by mouth every 6 (six) hours as needed for pain 30 tablet 3 Active folic acid (FOLVITE) 1 mg tabletIndications: Treatment of known or suspected Wernicke's Encephalopathy Take 1 tablet (1 mg total) by mouth daily 30 tablet 1 4 02/22/20 25 Active hydrOXYzine (VISTARIL) 50 mg capsuleIndications :anxiety Take 1 capsule (50 mg total) by mouth every 6 (six) hours as needed for anxiety 28 capsule 4 Active thiamine (VITAMIN B-1) 250 mg tabletIndications: Treatment of known or suspected Wernicke's Encephalopathy Take 1 tablet (250 mg total) by mouth daily 30 tablet 1 4 02/24/20 25 Active fluconazole (DIFLUCAN) 200 mg tablet Take 1 tablet (200 mg total) by mouth daily 7 tablet 4 Active dexAMETHasone (DECADRON) 4 mg tablet Take 1 tablet (4 mg total) by mouth 2 (two) times a day with meals 14 tablet 4 Active thiamine (VITAMIN B-1) 250 mg tablet Take 1 tablet (250 mg total) by mouth daily 30 tablet 11 4 02/24/20 25 Active silver sulfadiazine (SILVADENE, SSD) 1 % cream Apply topically 2 (two) times a day 50 g 4 Active Active Problems Problem Noted Date Diagnosed Date Alcohol withdrawal syndrome without complication 02/20/2024 Manipulative behavior 07/19/2022 Antisocial personality disorder 07/17/2022 Opiate use 05/22/2020 Assessment & Plan (05/24/2020 11:11 AM COMMERCIAL ACCOUNTANT): Abuses opiates that he buys from the streets. No withdrawals were noted during hospitalization Assessment & Plan (05/22/2020 9:24 AM COMMERCIAL ACCOUNTANT): Abuses opiates that he buys from the streets. 1. COWS 2. Continue to monitor and observe for withdrawals. He is denying all withdrawals at this time. Hyperlipidemia 10/31/2019 Assessment & Plan (07/17/2022 12:51 PM CDT): Will repeat lipid panel Pulmonary nodule 10/31/2019 Nontraumatic subdural hemorrhage 01/09/2016 Alcohol use disorder, mild, in early remission 0 09/24/2015 Assessment & Plan (07/17/2022 12:51 PM CDT): Counseling provided, will repeat b 12 folate level Started on MVN and minerals Assessment & Plan (05/24/2020 11:10 AM COMMERCIAL ACCOUNTANT): H/o heavy alcohol use with withdrawal shakes. He denies seizures or DTs history. 1. Have SWer discuss rehab options. Patient is resistant. 2. Folate, B12, MVI Assessment & Plan (05/23/2020 9:08 AM COMMERCIAL ACCOUNTANT): H/o heavy alcohol use with withdrawal shakes. He denies seizures or DTs history. 1. CIWA for 1-2 days- HE HAS NOT SCORED FOR OVER 24 HOURS. DC RANDAL/CIWA. 2. Have SWer discuss rehab options. Patient is resistant. 3. Folate, B12, MVI Assessment & Plan (05/22/2020 9:19 AM COMMERCIAL ACCOUNTANT): H/o heavy alcohol use with withdrawal shakes. He denies seizures or DTs history. 1. CIWA for 1-2 days. 2. Have SWer discuss rehab options. Patient is resistant. 3. Folate, B12, MVI Antisocial personality disorder 09/24/2015 Assessment & Plan (05/24/2020 11:11 AM COMMERCIAL ACCOUNTANT): He has a h/o CD with criminal and drug/alcohol activity starting in middle school. Violence, fighting, gang-activity in adulthood. Blames, doesn't take responsibility, no remorse for hurting others, vague with information, etc. 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 Assessment & Plan (05/23/2020 9:09 AM COMMERCIAL ACCOUNTANT): He has a h/o CD with criminal and drug/alcohol activity starting in middle school. Violence, fighting, gang-activity in adulthood. Blames, doesn't take responsibility, no remorse for hurting others, vague with information, etc. 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 Assessment & Plan (05/22/2020 9:22 AM COMMERCIAL ACCOUNTANT): He has a h/o CD with criminal and drug/alcohol activity starting in middle school. Violence, fighting, gang-activity in adulthood. Blames, doesn't take responsibility, no remorse for hurting others, vague with information, etc. PUD (peptic ulcer disease) Assessment & Plan (07/17/2022 12:54 PM CDT): Listed as having PUD, could not find EGD in his chart, will restart PPI as needed, and fup with PCP Rheumatoid factor positive Assessment & Plan (07/17/2022 12:57 PM CDT): Noted to have positive RA in 2014, was never treated for RA or formally diagnosed. Likely incidentally positive? Will repeat level Routine general medical exam ination at a health care facility Assessment & Plan (07/17/2022 12:58 PM CDT): No other active issues, rest of management as per psychiatry Encounters Date Type Department Care Team Description 02/21/2024 [facility] Enrollment [facility] [address], [place] [phone] Coni Plunkett 02/20/2024 8:40 AM COMMERCIAL ACCOUNTANT - 02/23/2024 3:55 PM COMMERCIAL ACCOUNTANT Hospital Encounter [facility] [address] [place] [address] Ligia Gil MD Ittiara, MD Franklin Simmons Mena, MD Sargsyan, Narine, MD Alcohol withdrawal syndrome without complication (HCC) (Primary Dx); Mucositis due to radiation therapy; Candidiasis Discharge Disposition: Discharge to home or self care 02/20/2024 Documentation [facility] [address], [place] [phone] Titi Cantu from Last 3 Months Immunizations Name Administration Dates Next Due Influenza, Quadrivalent, Spl it, Preservative Free, Intramuscular 05/24/2020 Influenza, Trivalent, Preservative Free, Intramu scular 02/23/2024 Surgical History Surgery Date Site/Laterality Comments HERNIA REPAIR Hernia repair ANKLE SURGERY ankle surgery Medical History Medical History Date Comments Hx Other Medical rheumatoid arth ritis; Comments: CAN 06/12/2014 - Depression Bipolar 1 disorder (HCC) HTN (hypertension) PUD (peptic ulcer disease) Throat cancer (HCC) Family History Medical History Relation Name Comments Cancer Other 1 Family history of cancer; Diabetes Other 2 Family history of diabetes; Mental illness Other 3 Family histor y of Mental illness; Other Other 4 Family history of alcholism; Arthritis Other 5 Family history of arthritis; Relation Name Status Comments Other 1 Other 2 Other 3 Other 4 Other 5 Social History Tobacco Use Types Packs/Day Years Used Date Smoking Tobacco: Former Cigars Smokeless Tobacco: Never Alcohol Use Standard Drinks/Week Comments Yes 0 (1 standard drink = 0.6 oz pur e alcohol) Humiliation, Afraid, Rape, and Kick questionnair e Answer Date Recorded Within the last year, have y ou been afraid of your partner or ex-partner? No 07/17/2022 Within the last year, have y ou been humiliated or emotionally abused in other ways by your partner or ex-partner? No Within the last year, have y ou been kicked, hit, slapped, or otherwise physically hurt by your partner or ex-partner? No 07/17/2022 Within the last year, have y ou been raped or forced to have any kind of sexual activity by your partner or ex-partner? No 07/17/2022 Social Connection and Isolation Panel [NHANES] A nswer Date Recorded In a typical week, how many times do you talk on the phone with family, friends, or neighbors? Never 07/17/2022 How often do you get together with friends or re latives? Never 07/17/2022 How often do you attend buddhism or caodaism serv ices? Never 07/17/2022 Do you belong to any clubs o r organizations such as buddhism groups, unions, fraternal or athletic groups, or school groups? No 07/17/2022 How often do you attend meet ings of the clubs or organizations you belong to? Never 07/17/2022 Are you , , di vorced, , never , or living with a partner? Never 07/17/2022 AUDIT-C Answer Date Recorded Q1: How often do you have a drink containing alc ohol? 2-4 times a month 07/17/2022 Average Number of Drinks Not on file 023 Frequency of Binge Drinking Not on file 04/2022 Overall Financial Resource Strain (CARDIA) Answe r Date Recorded How hard is it for you to pa y for the very basics like food, housing, medical care, and heating? Very hard 07/17/2022 [facility] Occupat ional Health - Occupational Stress Questionnaire Answer Date Recorded Do you feel stress - tense, restless, nervous, or anxious, or unable to sleep at night because your mind is troubled all the time - these days? Not at all 07/17/2022 Exercise Vital Sign Answer Date Recorde d On average, how many days pe r week do you engage in moderate to strenuous exercise (like a brisk walk)? 0 days 07/17/2022 On average, how many minutes do you engage in exercise at this level? 0 min 07/17/2022 Hunger Vital Sign Answer Date Recorded Within the past 12 months, y ou worried that your food would run out before you got the money to buy more. Often true 07/18/19 23 Within the past 12 months, t he food you bought just didn't last and you didn't have money to get more. Often true 07/17/2022 PRAPARE - Transportation Answer Date Re corded In the past 12 months, has l ack of transportation kept you from medical appointments or from getting medications? Yes 04/2022 In the past 12 months, has l ack of transportation kept you from meetings, work, or from getting things needed for daily living? Yes 07/17/2022 Housing Stability Vital Sign Answer Homer e Recorded In the last 12 months, was t here a time when you were not able to pay the mortgage or rent on time? Yes 07/17/2022 Number of Places Lived in the Last Year Not on f ile 07/17/2022 In the last 12 months, was t here a time when you did not have a steady place to sleep or slept in a penitentiary (including now)? Yes 07/17/2022 Personal Safety Answer Date Recorded Have you ever been in or are you currently in a harmful physical or emotional relationship or is someone making you feel afraid or unsafe? Denies 02/20/2024 Education Answer Date Recorded What is the highest level of school you have completed or the highest degree you have received? Some college, no degree 05/22/2020 Sex and Gender Information Value Date Recorded Sex Assigned at Not on file Legal Sex Male 1:06 AM COMMERCIAL ACCOUNTANT Gender Identity Not on file Sexual Orientation Not on file Occupation Industry Job Start Date Job End Date unemployed Not on file Not on file Not on file Obstetrics History Last Filed Vital Signs Vital Sign Reading Time Taken Comments Blood Pressure 114/97 02/23/2024 2:40 PM COMMERCIAL ACCOUNTANT Pulse 63 02/23/2024 2:40 PM COMMERCIAL ACCOUNTANT Temperature 36.1 ??C (97 ??F) 02/23/2024 2:40 PM COMMERCIAL ACCOUNTANT Respiratory Rate 18 02/23/2024 2:40 PM COMMERCIAL ACCOUNTANT Oxygen Saturation 96% 02/23/2024 2:40 PM COMMERCIAL ACCOUNTANT Inhaled Oxygen Concentration - - Weight 74.2 kg (163 lb 8 oz) 02/20/2024 6:50 PM COMMERCIAL ACCOUNTANT Height 175.3 cm (5' 9 ) 02/20/2024 6:50 PM COMMERCIAL ACCOUNTANT Body Mass Index 24.14 02/20/2024 6:50 PM COMMERCIAL ACCOUNTANT Plan of Treatment Health Maintenance Due Date Last Done Comments Colon Cancer Screening-Colonoscopy 1968 Depression Screening 1968 Prostate Cancer Screening-PSA 1968 Hepatitis B Screening 02/21/1986 Regular Well Visit/Exam 18-64 02/21/1986 Zoster Vaccine (1 of 2) 02/21/2018 Covid-19 Vaccine (2 - season) 2023 12/25/2020 DTaP/Tdap/Td Vaccine (3 - Td or Tdap) 01/01/2030 01/02/2020, 11/18/2015 Hepatitis C Screening Completed 08/15/2019 Pneumococcal vaccine <65 Aged Out 11/11/2023, 12/18 No longer eligible based on patient's age to complete this topic Influenza Vaccine Completed 02/23/2024, , 01/14/2023, Additional history exists Procedures Procedure Name Priority Date/Time Associated Diagnosis Comments EGFR Routine 02/21/2024 4:08 AM COMMERCIAL ACCOUNTANT DIFFERENTIAL AUTO Routine 02/21/2024 4:0 8 AM COMMERCIAL ACCOUNTANT PHOSPHORUS Routine 02/21/2024 4:08 AM COMMERCIAL ACCOUNTANT MAGNESIUM Routine 02/21/2024 4:08 AM COMMERCIAL ACCOUNTANT COMPREHENSIVE METABOLIC PANEL Routine 02/21/2024 4:08 AM COMMERCIAL ACCOUNTANT CBC WITH AUTO DIFFERENTIAL Routine 02/21/2024 4:08 AM COMMERCIAL ACCOUNTANT LACTATE STAT 02/20/2024 9:39 PM COMMERCIAL ACCOUNTANT ND CRITICAL CARE ILL/INJURED PATIENT INIT 30-74 MIN Routine 02/20/2024 4:06 PM COMMERCIAL ACCOUNTANT SEPSIS LACTATE WITH REFLEX Timed 02/20/2024 2:42 PM COMMERCIAL ACCOUNTANT DRUGS OF ABUSE SCREEN, URINE WITHOUT CONFIRMATION STAT 02/20/2024 1:35 PM COMMERCIAL ACCOUNTANT ETHANOL STAT 02/20/2024 12:12 PM COMMERCIAL ACCOUNTANT SEPSIS LACTATE WITH REFLEX Timed 02/20/2024 12:[address] SOFT TISSUE NECK W CONTRAST ED 02/20/2024 9:51 AM COMMERCIAL ACCOUNTANT EGFR STAT 02/20/2024 9:10 AM COMMERCIAL ACCOUNTANT DIFFERENTIAL AUTO STAT 02/20/2024 9:1 0 AM COMMERCIAL ACCOUNTANT SEPSIS LACTATE WITH REFLEX STAT 02/20/2024 9:10 AM COMMERCIAL ACCOUNTANT CBC WITH AUTO DIFFERENTIAL STAT 02/20/2024 9:10 AM COMMERCIAL ACCOUNTANT COMPREHENSIVE METABOLIC PANEL STAT 02/20/2024 9:10 AM COMMERCIAL ACCOUNTANT BLOOD CULTURE STAT 02/20/2024 9:10 AM COMMERCIAL ACCOUNTANT BLOOD CULTURE STAT 02/20/2024 9:10 AM COMMERCIAL ACCOUNTANT HEPATITIS PANEL, ACUTE Routine 0 5:14 PM CDT from Last 3 Months or Most Recently Relevant to Health Maintenance Results * eGFR (02/21/2024 4:08 AM COMMERCIAL ACCOUNTANT) [facility] eGFR >90 >=60 mL/min/1. 73 m2 Comment: Interpretive Data Reference Interval Normal ?>/= 90 mL/min/1.73m2 Mildly decreased* ? 60 - 89 mL/min/1.73m2 Mildly to moderately decreased ?45 - 59 mL/min/1.73m2 Moderately to severely decreased ??30 - 44 mL/min/1.73m2 Severely decreased ?15 - 29 mL/min/1.73m2 Kidney Failure ?< 15 ??mL/min/1.73m2 *Relative to young adult level Estimated glomerular filtration rate is determined by the 2020 CKD-EPI equation recommended by the National Kidney Foundation (A Unifying Approach to GFR Estimation: Recommendations of the NKF-ASK Task Force on Reassessing the Inclusion of Race in Diagnosing Kidney Disease, JASN 2020). The CKD-EPI equation should not be used for patients with unstable renal function and has not been validated in children and those over 70. Current interpretive data was last reviewed 2021. Blood 02/21/2024 4:08 AM COMMERCIAL ACCOUNTANT 02/21/2024 4:36 AM COMMERCIAL ACCOUNTANT us Aniya Dooley MD LAB BLOOD ORDERABLE S Final Result [facility] ([place]) [address] [facility] Department of Laboratories [place], [place] [id number] * (ABNORMAL) Differential, auto (02/21/2024 4:08 AM COMMERCIAL ACCOUNTANT) Neutrophil abs 6.5 1.5 - 6.5 K/cumm Imm gran abs 0.0 0.0 - 0.1 K/cumm [facility] ([place]) Lymphocyte abs 0.2(L) 0.8 - 3.3 K/cumm [facility] ([place]) Monocyte abs 0.2 0.2 - 0.8 K/cumm [facility] ([place]) Eosinophil abs 0.0 0.0 - 0.5 K/cumm [facility] ([place]) Basophil abs 0.0 0.0 - 0.1 K/cumm [facility] ([place]) Neutrophil pct 94.4 % [facility] ([place]) Comment: Interpretive Data Percent cell count reference ranges are not reported, since discordance with absolute values may lead to misinterpretation of CBC data. Current Interpretive Data was last revised on 2017. Imm gran pct 0.3 % [facility] ([place]) Comment: Interpretive Data Percent cell count reference ranges are not reported, since discordance with absolute values may lead to misinterpretation of CBC data. Current Interpretive Data was last revised on 2017. Lymphocyte pct 2.3 % [facility] ([place]) Comment: Interpretive Data Percent cell count reference ranges are not reported, since discordance with absolute values may lead to misinterpretation of CBC data. Current Interpretive Data was last revised on 2017. Monocyte pct 2.9 % [facility] ([place]) Comment: Interpretive Data Percent cell count reference ranges are not reported, since discordance with absolute values may lead to misinterpretation of CBC data. Current Interpretive Data was last revised on 2017. Eosinophil pct 0.0 % [facility] ([place]) Comment: Interpretive Data Percent cell count reference ranges are not reported, since discordance with absolute values may lead to misinterpretation of CBC data. Current Interpretive Data was last revised on 2017. Basophil pct 0.1 % [facility] ([place]) Comment: Interpretive Data Percent cell count reference ranges are not reported, since discordance with absolute values may lead to misinterpretation of CBC data. Current Interpretive Data was last revised on 2017. Blood 02/21/2024 4:08 AM COMMERCIAL ACCOUNTANT 02/21/2024 4:35 AM COMMERCIAL ACCOUNTANT us Aniya Dooley MD LAB BLOOD ORDERABLE S Final Result [facility] ([place]) [address] [facility] Department [place] [address] * (ABNORMAL) CBC with auto differential (02/21/2024 4:08 AM COMMERCIAL ACCOUNTANT) WBC 6.9 3.8 - 9.9 K/cumm Hgb 15.0 13.0 - 17.5 g/dL [facility] ([place]) Hct 43.1 38.9 - 50.3 % [facility] ([place]) Plt 313 150 - 400 K/cumm [facility] ([place]) MPV 9.7 9.1 - 12.3 fL [facility] ([place]) RBC 4.54 4.30 - 5.80 M/cumm [facility] ([place]) MCV 94.9 81.3 - 96.4 fL [facility] ([place]) MCH 33.0 27.1 - 33.3 pg [facility] ([place]) MCHC 34.8 32.3 - 35.7 g/dL [facility] ([place]) RDW CV 15.1(H) 11.1 - 14.9 % [facility] ([place]) RDW SD 52.8(H) 35.7 - 48.1 fL [facility] ([place]) NRBC abs 0.00 0.00 - 0.01 K/cumm [facility] ([place]) Blood 02/21/2024 4:08 AM COMMERCIAL ACCOUNTANT 02/21/2024 4:35 AM COMMERCIAL ACCOUNTANT Aniya Dooley MD LAB BLOOD ORDERABLE S Final Result Performing Organization Address [facility] Co de Phone Number [facility] ([place]) [address] [facility] [place] [address] * Phosphorus (02/21/2024 4:08 AM COMMERCIAL ACCOUNTANT) Phosphorus, pl 2.7 2.3 - 4.5 mg/dL Blood 02/21/2024 4:08 AM COMMERCIAL ACCOUNTANT 02/21/2024 4:36 AM COMMERCIAL ACCOUNTANT Carolina Wilkins MD LAB BLOOD ORDERABLES Fin al Result Performing Organization Address City/[facility]/ZIP Co de Phone Number [facility] ([place]) 1 [facility] [place] [address] * Magnesium (02/21/2024 4:08 AM COMMERCIAL ACCOUNTANT) Magnesium 1.7 1.4 - 2.5 mg/dL Blood 02/21/2024 4:08 AM COMMERCIAL ACCOUNTANT 02/21/2024 4:36 AM COMMERCIAL ACCOUNTANT Carolina Wilkins MD LAB BLOOD ORDERABLES Fin al Result [facility] ([place]) [address] [facility] Department [place] [address] * (ABNORMAL) Comprehensive metabolic panel (02/21/2024 4:08 AM COMMERCIAL ACCOUNTANT) Sodium 138 135 - 145 mmol/L Potassium, pl 5.1(H) 3.3 - 4.9 mmol/L [facility] ([place]) Chloride 105 97 - 110 mmol/L [facility] ([place]) CO2 19(L) 22 - 32 mmol/L [facility] ([place]) Anion gap 14 2 - 15 mmol/L [facility] ([place]) BUN 10 6 - 25 mg/dL [facility] ([place]) Creatinine 0.63(L) 0.80 - 1.30 mg/dL [facility] ([place]) Glucose 119 70 - 199 mg/dL [facility] ([place]) Comment: Interpretive Data Fasting glucose >/= 126 mg/dl is diagnostic for diabetes. ?? Fasting is defined as no caloric intake for at least 8 hours. Fasting glucose between 100 mg/dl to 125 mg/dl is diagnostic of prediabetes. In a patient with classic symptoms of hyperglycemia or hyperglycemic crisis, a random glucose >/= 200 mg/dl is diagnostic for diabetes. In the absence of unequivocal hyperglycemia, results should be confirmed by repeat testing. The classification and Diagnosis of Diabetes Diabetes Care 202; 46: S19-S40. Current interpretive data was last revised 2022. Calcium 8.8 8.5 - 10.3 mg/dL [facility] ([place]) Bilirubin, total 0.7 0.1 - 1.2 mg/dL [facility] ([place]) Protein, pl 6.9 6.5 - 8.5 g/dL [facility] ([place]) Albumin 3.3(L) 3.5 - 5.0 g/dL [facility] ([place]) Alk phos 109 40 - 130 Units/L [facility] ([place]) ALT 10 7 - 55 Units/L [facility] ([place]) AST 24 10 - 50 Units/L [facility] ([place]) Comment:Slightly Hemolyzed S pecimen Blood 02/21/2024 4:08 AM COMMERCIAL ACCOUNTANT 02/21/2024 4:36 AM COMMERCIAL ACCOUNTANT us Aniya Dooley MD LAB BLOOD ORDERABLE S Final Result [facility] ([place]) [address] [place] [address] Department [place] [address] * Lactate (02/20/2024 9:39 PM COMMERCIAL ACCOUNTANT) Lactate 1.4 0.7 - 2.0 mmol/L Blood 02/20/2024 9:39 PM COMMERCIAL ACCOUNTANT 02/20/2024 9:41 PM COMMERCIAL ACCOUNTANT Carolina Wilkins MD LAB BLOOD ORDERABLES Fin al Result [facility] ([place]) [address] [place] [address] Department [place] [address] * ND CRITICAL CARE ILL/INJURED PATIENT INIT 30-74 MIN (02/20/2024 4:06 PM COMMERCIAL ACCOUNTANT) Narrative Aniya Dooley MD - 02/20/2024 4:06 PM COMMERCIAL ACCOUNTANT Aniya Dooley MD ? 02/20/2024 ??4:07 PM Critical Care Performed by: Aniya Dooley MD Authorized by: Aniya Dooley MD ?? Critical care provider statement: As reflected in the history, physical exam, orders, notes, and/or MDM, I was personally present while the patient was critically ill and provided critical care services for 45 minutes, excluding time involved in separately billable procedures. ??Critical care was necessary to treat or prevent imminent or life-threatening deterioration of the following condition(s): ?? acute ingestion ??Critical care was time spent by me providing the following: ? continuous telemetry and serial bedside patient exams ?? I provided emergent necessary critical care medicine services to this patient. I ordered and reviewed test results and/or imaging studies. I spent time discussing the management of this critically ill patient with consultants and the medical staff. I spent time discussing the management and therapeutic options for this critically ill patient with the patient themselves or with the appropriate designated surrogate decision-maker. I spent time documenting in the medical record. I admitted this patient to a continuous cardiac monitored bed. us Aniya Dooley MD IN CLINIC/BEDSIDE O RDERABLES Final Result * (ABNORMAL) Sepsis Lactate w/ Reflex (02/20/2024 2:42 PM COMMERCIAL ACCOUNTANT) Pathologist [facility] Sepsis Lactate 2.2(H) 0.7 - 2.0 mmol/L Blood 02/20/2024 2:42 PM COMMERCIAL ACCOUNTANT 02/20/2024 2:44 PM COMMERCIAL ACCOUNTANT Ligia Gil MD LAB BLOOD ORDERABLES Debbie l Result [facility] ([place]) [address] [facility] Department [place] [address] * (ABNORMAL) Drugs of Abuse Screen, Urine without Confirmation (02/20/2024 1:35 PM COMMERCIAL ACCOUNTANT) Pathologist [facility] Amphetamine, ur Not Detected CutOff 500ng/mL Comment: Interpretive Data - Amphetamines: ??Samples containing greater than 500 ng/mL d-methamphetamine ??or other cross-reacting amphetamine compounds are reported as positive. ??Amphetamine immunoassays are subject to significant false positive rates due to cross-reactivity of non-amphetamine drugs. Confirmatory testing required for definitive results. Current Interpretive Data was last reviewed 2022. Barbiturates, ur Not Detected CutOff 200ng/mL [facility] ([place]) Comment: Interpretive Data - Barbiturates: ??Samples containing greater than 200 ng/mL secobarbital or other cross-reacting barbiturate compounds are reported as positive. ??False positive and false negative results are possible. Confirmatory testing required for definitive results. Current Interpretive Data was last reviewed 2022. Benzodiazepines, ur Not Detected CutOff 100ng/mL [facility] ([place]) Comment: Interpretive Data - Benzodiazepines: ??Samples containing greater than 100 ng/mL nordiazepam or other cross-reacting compounds are reported as positive. False positive and false negative results are possible. Confirmatory testing required for definitive results. Current Interpretive Data was last reviewed 2022. Cannabinoids, ur Screen Positive, presumptive (A) CutOff 50 ng/mL [facility] ([place]) Comment: Interpretive Data - Cannabinoids: ??Samples containing greater than 50 ng/mL delta-9 THC -COOH or other cross-reacting compounds are reported as positive. ??False positive and false negative results are possible. ??Confirmatory testing required for definitive results. Current Interpretive Data was last reviewed 2022. Cocaine, ur Not Detected CutOff 150ng/mL [facility] ([facility] Comment: Interpretive Data - Cocaine: ??Samples containing greater than 150 ng/mL benzoylecgonine or other cross-reacting compounds are reported as positive. False positive and false negative results are possible. Confirmatory testing required for definitive results. Current Interpretive Data was last reviewed 2022. Fentanyl, Ur Not Detected CutOff 5 ng/mL [facility] ([facility]) Comment: Interpretive Data - Fentanyl: ??Samples containing greater than 5 ng/mL norfentanyl, fentanyl, or other cross-reacting fentanyl compounds are reported as positive. False positive and false negative results are possible. Confirmatory testing required for definitive results. Current Interpretive Data was last reviewed 2023. Methadone, ur Not Detected CutOff 300ng/mL [facility] ([facility]) Comment: Interpretive Data - Methadone: ??Samples containing greater than 300 ng/mL d,l-methadone or other cross-reacting compounds are reported as positive. ??False positive and false negative results are possible. Confirmatory testing required for definitive results. Current Interpretive Data was last reviewed 2022. Opiates, ur Screen Positive, presumptive (A) CutOff 300ng/mL [facility] ([facility]) Comment: Interpretive Data - Opiates: ??Samples containing greater than 300 ng/mL morphine or other cross-reacting compounds are reported as positive. ??False positive and false negative results are possible. Confirmatory testing required for definitive results. Current Interpretive Data was last reviewed 2022. Oxycodone, ur Not Detected CutOff 100ng/mL [facility] ([place]) Comment: Interpretive Data - Oxycodone: ??Samples containing greater than 100 ng/mL oxycodone or other cross-reacting compounds are reported as ??positive. ??False positive and false negative results are possible. Confirmatory testing required for definitive results. Current Interpretive Data was last reviewed 2022. Phencyclidine, ur Not Detected CutOff 25 ng/mL [facility] ([place]) Comment: Interpretive Data - Phencyclidine: ??Samples containing greater than 25 ng/mL phencyclidine or other cross-reacting compounds are reported as positive. ??False positive and false negative results are possible. Confirmatory testing required for definitive results. Current Interpretive Data was last reviewed 2022. Urine Creatinine 117 mg/dL [facility] ([place]) Comment: Interpretive Data Urine Creatinine: < 10 mg/dL is extremely dilute = or > 10 but < 20 mg/dL is dilute = or > 20 mg/dL is normal Current Interpretive Data was last revised on 2017. Urine 02/20/2024 1:35 PM COMMERCIAL ACCOUNTANT 02/20/2024 4:41 PM COMMERCIAL ACCOUNTANT Narrative [facility] ([place]) - 02/20/2024 5:23 PM COMMERCIAL ACCOUNTANT Drug of Abuse screening is performed by immunoassay for medical purposes only. ??This is not to be used for Pain Management purposes. us Ligia Gil MD LAB URINE ORDERABLES Debbie holbrook Result [facility] ([place]) 1 [facility] Department of Laboratories [place], [place] [address] * (ABNORMAL) Sepsis Lactate w/ Reflex (02/20/2024 12:12 PM COMMERCIAL ACCOUNTANT) Sepsis Lactate 3.1(H) 0.7 - 2.0 mmol/L Blood 02/20/2024 12:1 2 PM COMMERCIAL ACCOUNTANT 02/20/2024 12:16 PM COMMERCIAL ACCOUNTANT Ligia Gil MD LAB BLOOD ORDERABLES Debbie l Result Performing Organization Address [facility] Co de Phone Number [facility] [place]) 1 [facility] [place] [address] * (ABNORMAL) Ethanol (02/20/2024 12:12 PM COMMERCIAL ACCOUNTANT) Ethanol 51(H) <=10 mg/dL Comment: Interpretive Data Legal limit of intoxication > or = 80 mg/dL Levels > or = 400 mg/dL are potentially TOXIC. Current interpretive data was last revised on 2018. Blood 02/20/2024 12:1 2 PM COMMERCIAL ACCOUNTANT 02/20/2024 1:23 PM COMMERCIAL ACCOUNTANT Ligia Gil MD LAB BLOOD ORDERABLES Debbie l Result Performing Organization Address [facility] Co de Phone Number [facility] [place] 1 [facility] [place] [address] * CT Neck Soft Tissue W Contrast (02/20/2024 9:51 AM COMMERCIAL ACCOUNTANT) Anatomical Region Laterality Modality Head and Neck N/A Computed Tomogra phy 02/20/2024 10:3 4 AM COMMERCIAL ACCOUNTANT Narrative 02/20/2024 10:48 AM COMMERCIAL ACCOUNTANT EXAM DESCRIPTION: ?? CT SOFT TISSUE NECK W CONTRAST REASON FOR STUDY: ?? Neck abscess, deep tissue, also has throat ca ?? Neck swelling, patient has throat cancer that has been treated with radiation and chemo, patient vomited during scan, repeated images after patient was finished ?? TECHNIQUE: Post IV contrast scanning from skull base through lung apices. ?? Reconstructed MPR images reviewed. All images stored on PACS. Automated exposure control was used as a dose optimization technique for this examination. CONTRAST TYPE/DOSE: ?? 75mL of IOVERSOL 350 MG IODINE/ML INTRAVENOUS SYRINGE ?? injected via ?? intravenous COMPARISON: CT neck dated 05/28/2023. FINDINGS: The examination is significantly degraded by motion artifact. ??This is most pronounced at the level of the supraglottic larynx and larynx which includes the region of the patient's known mass. ??The CT was repeated a few minutes later but does not include the area of maximal motion artifact. ??The known mass can not be evaluated on this examination. ??Within this limitation: Interval development of bilateral subcutaneous fat stranding, platysmal thickening, hyperenhancement and decreased size of the submandibular glands, and diffuse mucosal space edema of the pharynx and larynx. ??These findings are compatible with treatment changes. ??Within the limitation of the artifact described above, no discrete soft tissue abscess is identified. ??As described above the known supraglottic mass can not be evaluated. ??No visualized lymphadenopathy within limitations of the motion artifact. ??New asymmetry of the base of tongue with apparent retraction of the left base of tongue. No significant carotid artery calcification. ??No significant abnormality of the cervical spine. ??The lung apices are clear. ??No acute fracture. IMPRESSION: The examination is significantly limited by motion artifact. This is most pronounced at the level of the supraglottic larynx and larynx which includes the region of the patient's known mass. The known mass can not be evaluated on this examination. ??Within this limitation: Interval development of diffuse soft tissue edema of the neck which most likely represents radiation changes. No discrete soft tissue abscess is identified within the limitation of motion artifact. New asymmetry of the base of tongue with apparent retraction of the left base of tongue. ??Correlate with physical exam. THIS IS AN ELECTRONICALLY VERIFIED FINAL REPORT 02/20/2024 10:48 AM - Electronically signed by ??Rudy Nagel M.D. MM: MM D: ??02/20/2024 10:48 AM T: ??02/20/2024 10:48 AM Report ID: [id number] Reading Location: ??[id number] Procedure Note Rudy Nagel MD - 02/20/2024 EXAM DESCRIPTION: CT SOFT TISSUE NECK W CONTRAST REASON FOR STUDY: Neck abscess, deep tissue, also has throat ca Neck swelling, patient has throat cancer that has been treated withradiation and chemo, patient vomited during scan, repeated images after patient was finished TECHNIQUE: Post IV contrast scanning from skull base through lung apices. Reconstructed MPR images reviewed. All images stored on PACS. Automated exposure control was used as a dose optimization technique for this examination. CONTRAST TYPE/DOSE: 75mL of IOVERSOL 350 MG IODINE/ML INTRAVENOUSSYRINGE injected via intravenous COMPARISON: CT neck dated 05/28/2023. FINDINGS: The examination is significantly degraded by motion artifact. This ismost pronounced at the level of the supraglottic larynx and larynx whichincludes the region of the patient's known mass. The CT was repeated a few minutes later but does not include the area of maximal motion artifact. The known mass can not be evaluated on this examination. Within this limitation: Interval development of bilateral subcutaneous fat stranding, platysmal thickening, hyperenhancement and decreased size of the submandibularglands, and diffuse mucosal space edema of the pharynx and larynx. These findingsare compatible with treatment changes. Within the limitation of the artifact described above, no discrete soft tissue abscess is identified. Asdescribed above the known supraglottic mass can not be evaluated. No visualized lymphadenopathy within limitations of the motion artifact. New asymmetryof the base of tongue with apparent retraction of the left base of tongue. No significant carotid artery calcification. No significant abnormalityof the cervical spine. The lung apices are clear. No acute fracture. IMPRESSION: The examination is significantly limited by motion artifact. This is most pronounced at the level of the supraglottic larynx and larynx whichincludes the region of the patient's known mass. The known mass can not beevaluated on this examination. Within this limitation: Interval development of diffuse soft tissue edema of the neck which most likely represents radiation changes. No discrete soft tissue abscess is identified within the limitation ofmotion artifact. New asymmetry of the base of tongue with apparent retraction of the leftbase of tongue. Correlate with physical exam. THIS IS AN ELECTRONICALLY VERIFIED FINAL REPORT 02/20/2024 10:48 AM - Electronically signed by Rudy Nagel M.D. MM: MM Report ID: [id number] Reading Location: [id number] us Ligia Gil MD IMG CT PROCEDURES Final R esult * (ABNORMAL) Sepsis Lactate w/ Reflex (02/20/2024 9:10 AM COMMERCIAL ACCOUNTANT) Pathologist [facility] Sepsis Lactate 4.1(C) 0.7 - 2.0 mmol/L Comment:Critical result call ed to and read back by Tomeka Ta (ER Charge_) on _02/20/2024 09:22:22 COMMERCIAL ACCOUNTANT to _Lynn Obrien. Blood 02/20/2024 9:10 AM COMMERCIAL ACCOUNTANT 02/20/2024 9:15 AM COMMERCIAL ACCOUNTANT us Ligia Gil MD LAB BLOOD ORDERABLES Debbie l Result [facility] ([place] 1 [facility] Department [place] [address] * eGFR (02/20/2024 9:10 AM COMMERCIAL ACCOUNTANT) Pathologist [facility] eGFR >90 >=60 mL/min/1. 73 m2 Comment: Interpretive Data Reference Interval Normal ?>/= 90 mL/min/1.73m2 Mildly decreased* ? 60 - 89 mL/min/1.73m2 Mildly to moderately decreased ?45 - 59 mL/min/1.73m2 Moderately to severely decreased ??30 - 44 mL/min/1.73m2 Severely decreased ?15 - 29 mL/min/1.73m2 Kidney Failure ?< 15 ??mL/min/1.73m2 *Relative to young adult level Estimated glomerular filtration rate is determined by the 2020 CKD-EPI equation recommended by the National Kidney Foundation (A Unifying Approach to GFR Estimation: Recommendations of the NKF-ASK Task Force on Reassessing the Inclusion of Race in Diagnosing Kidney Disease, JASN 2020). The CKD-EPI equation should not be used for patients with unstable renal function and has not been validated in children and those over 70. Current interpretive data was last reviewed 2021. Blood 02/20/2024 9:10 AM COMMERCIAL ACCOUNTANT 02/20/2024 9:15 AM COMMERCIAL ACCOUNTANT us Ligia Gil MD LAB BLOOD ORDERABLES Debbie holbrook Result [facility] ([place] 1 [facility] Department [place] [address] * (ABNORMAL) Differential, auto (02/20/2024 9:10 AM COMMERCIAL ACCOUNTANT) Neutrophil abs 11.6(H) 1.5 - 6.5 K/cumm Imm gran abs 0.0 0.0 - 0.1 K/cumm [facility] ([place]) Lymphocyte abs 0.5(L) 0.8 - 3.3 K/cumm [facility] ([place]) Monocyte abs 0.7 0.2 - 0.8 K/cumm [facility] ([place]) Eosinophil abs 0.1 0.0 - 0.5 K/cumm [facility] ([place]) Basophil abs 0.1 0.0 - 0.1 K/cumm [facility] ([place]) Neutrophil pct 89.6 % [facility] ([place]) Comment: Interpretive Data Percent cell count reference ranges are not reported, since discordance with absolute values may lead to misinterpretation of CBC data. Current Interpretive Data was last revised on 2017. Imm gran pct 0.3 % [facility] ([place]) Comment: Interpretive Data Percent cell count reference ranges are not reported, since discordance with absolute values may lead to misinterpretation of CBC data. Current Interpretive Data was last revised on 2017. Lymphocyte pct 3.5 % [facility] ([facility]) Comment: Interpretive Data Percent cell count reference ranges are not reported, since discordance with absolute values may lead to misinterpretation of CBC data. Current Interpretive Data was last revised on 2017. Monocyte pct 5.6 % [facility] ([place]) Comment: Interpretive Data Percent cell count reference ranges are not reported, since discordance with absolute values may lead to misinterpretation of CBC data. Current Interpretive Data was last revised on 2017. Eosinophil pct 0.5 % [facility] ([place]) Comment: Interpretive Data Percent cell count reference ranges are not reported, since discordance with absolute values may lead to misinterpretation of CBC data. Current Interpretive Data was last revised on 2017. Basophil pct 0.5 % [facility] ([place]) Comment: Interpretive Data Percent cell count reference ranges are not reported, since discordance with absolute values may lead to misinterpretation of CBC data. Current Interpretive Data was last revised on 2017. Blood 02/20/2024 9:10 AM COMMERCIAL ACCOUNTANT 02/20/2024 9:15 AM COMMERCIAL ACCOUNTANT Ligia Gil MD LAB BLOOD ORDERABLES Debbie l Result [facility] ([place]) 1 [facility] Department [place] [address] * (ABNORMAL) CBC with auto differential (02/20/2024 9:10 AM COMMERCIAL ACCOUNTANT) WBC 12.9(H) 3.8 - 9.9 K/cumm Hgb 16.4 13.0 - 17.5 g/dL [facility] ([place]) Hct 47.1 38.9 - 50.3 % [facility] ([place]) Plt 352 150 - 400 K/cumm [facility] ([place]) MPV 9.2 9.1 - 12.3 fL [facility] RBC 5.00 4.30 - 5.80 M/cumm [facility] ([place]) MCV 94.2 81.3 - 96.4 fL [facility] ([place]) MCH 32.8 27.1 - 33.3 pg [facility] ([place]) MCHC 34.8 32.3 - 35.7 g/dL [facility] ([place]) RDW CV 15.4(H) 11.1 - 14.9 % [facility] ([place]) RDW SD 53.8(H) 35.7 - 48.1 fL [facility] ([place]) NRBC abs 0.00 0.00 - 0.01 K/cumm [facility] ([place]) Blood 02/20/2024 9:10 AM COMMERCIAL ACCOUNTANT 02/20/2024 9:15 AM COMMERCIAL ACCOUNTANT Ligia Gil MD LAB BLOOD ORDERABLES Debbie holbrook Result [facility] ([place]) 1 [facility] Department [place] [address] * Blood culture Blood Peripheral (02/20/2024 9:10 AM COMMERCIAL ACCOUNTANT) Report Final Report: No growth Comment:Testing performed by : [facility], [address] [place]., [address] Blood (Peripheral) 02/20/2024 9:10 AM COMMERCIAL ACCOUNTANT 02/20/2024 1:12 PM COMMERCIAL ACCOUNTANT Narrative [facility] ([place]) - 02/24/2024 4:00 PM COMMERCIAL ACCOUNTANT From a different site than #1. Draw Blood cultures before administration of Antibiotics Collection->Peripheral 1. ?Blood cultures are incubated for 4 days on a continuously monitored blood culture system. The first report of a negative culture is issued within 24 hours of receipt of the specimen in the laboratory. 2. ?Positive culture results are reported as soon as they are detected. 3. ?The most important factor for detection of microbes in the setting of bloodstream infection is the volume of blood submitted for culture. Failure to collect an optimal blood volume can result in false negative blood cultures. For pediatric patients, the recommended blood volume to collect is 1 mL of blood per year of patient age (up to 20 mL) per blood culture set. For adult patients, 20 mL of blood, divided equally between aerobic and anaerobic blood culture bottles, is recommended for each blood culture set. 4. ?For blood cultures with Gram-positive cocci, a rapid molecular test for organism identification may be performed using the [employer] Gram-Positive Blood Culture Assay. This assay detects microbial DNA in positive blood culture broth via hybridization of target DNA to capture oligonucleotides on a microarray. This assay has been cleared by the [place] Food and Drug Administration and its performance characteristics have been verified by the [facility]. 5. ?For questions about this culture, contact the Microbiology Laboratory at [phone]. Interpretive data was last revised on 2019. us Ligia Gil MD LAB MICROBIOLOGY - GENERA L ORDERABLES Final Result [facility] ([place]) 1 [facility] [place] [address] * Blood culture Blood Peripheral (02/20/2024 9:10 AM COMMERCIAL ACCOUNTANT) Report Final Report: No growth Comment:Testing performed by : [facility], [address] [place]., [address] Blood (Peripheral) 02/20/2024 9:10 AM COMMERCIAL ACCOUNTANT 02/20/2024 1:12 PM COMMERCIAL ACCOUNTANT Narrative [facility] ([place]) - 02/24/2024 4:00 PM COMMERCIAL ACCOUNTANT Draw Blood cultures before administration of Antibiotics Collection->Peripheral 1. ?Blood cultures are incubated for 4 days on a continuously monitored blood culture system. The first report of a negative culture is issued within 24 hours of receipt of the specimen in the laboratory. 2. ?Positive culture results are reported as soon as they are detected. 3. ?The most important factor for detection of microbes in the setting of bloodstream infection is the volume of blood submitted for culture. Failure to collect an optimal blood volume can result in false negative blood cultures. For pediatric patients, the recommended blood volume to collect is 1 mL of blood per year of patient age (up to 20 mL) per blood culture set. For adult patients, 20 mL of blood, divided equally between aerobic and anaerobic blood culture bottles, is recommended for each blood culture set. 4. ?For blood cultures with Gram-positive cocci, a rapid molecular test for organism identification may be performed using the [employer] Gram-Positive Blood Culture Assay. This assay detects microbial DNA in positive blood culture broth via hybridization of target DNA to capture oligonucleotides on a microarray. This assay has been cleared by the [place] Food and Drug Administration and its performance characteristics have been verified by the [facility]. 5. ?For questions about this culture, contact the Microbiology Laboratory at [phone]. Interpretive data was last revised on 2019. Ligia Gil MD LAB MICROBIOLOGY - GENERA L ORDERABLES Final Result [facility] ([place]) 1 [facility] Department [place] [address] * (ABNORMAL) Comprehensive metabolic panel (02/20/2024 9:10 AM COMMERCIAL ACCOUNTANT) Sodium 138 135 - 145 mmol/L Potassium, pl 4.0 3.3 - 4.9 mmol/L [facility] Chloride 99 97 - 110 mmol/L [facility] CO2 23 22 - 32 mmol/L [facility] ([place] Anion gap 17(H) 2 - 15 mmol/L [facility] ([place] BUN 5(L) 6 - 25 mg/dL [facility] ([place]) Creatinine 0.63(L) 0.80 - 1.30 mg/dL [facility] ([place]) Glucose 91 70 - 199 mg/dL [facility] ([place] Comment: Interpretive Data Fasting glucose >/= 126 mg/dl is diagnostic for diabetes. ?? Fasting is defined as no caloric intake for at least 8 hours. Fasting glucose between 100 mg/dl to 125 mg/dl is diagnostic of prediabetes. In a patient with classic symptoms of hyperglycemia or hyperglycemic crisis, a random glucose >/= 200 mg/dl is diagnostic for diabetes. In the absence of unequivocal hyperglycemia, results should be confirmed by repeat testing. The classification and Diagnosis of Diabetes Diabetes Care 2021; 46: S19-S40. Current interpretive data was last revised 2022. Calcium 9.8 8.5 - 10.3 mg/dL [facility] ([place] Bilirubin, total 0.6 0.1 - 1.2 mg/dL [facility] ([place]) Protein, pl 8.2 6.5 - 8.5 g/dL [facility] ([place]) Albumin 4.0 3.5 - 5.0 g/dL [facility] ([place]) Alk phos 127 40 - 130 Units/L [facility]) ALT 14 7 - 55 Units/L [facility] AST 30 10 - 50 Units/L [facility] ([place] Comment:Slightly Hemolyzed S pecimen Blood 02/20/2024 9:10 AM COMMERCIAL ACCOUNTANT 02/20/2024 9:15 AM COMMERCIAL ACCOUNTANT us Ligia Gil MD LAB BLOOD ORDERABLES Debbie holbrook Result [facility] ([place] 1 [facility] [place] [address] * Hepatitis panel, acute (08/15/2019 5:14 PM CDT) HepBsAg NONREACT NONREACTIVE [facility] Comment: Siemens CentaurXP using LANCE (chemiluminescent immunoassay) technology. NONREACTIVE: IgM antibodies to Hepatitis B Surface antigen not detected. REACTIVE: IgM antibodies to Hepatitis B Surface antigen detected. Reactive results will be confirmed by neutralization testing. HBsAb qn <3.10 mIU/mL [facility] Comment: Siemens CentaurXP using LANCE (chemiluminescent immunoassay) technology. 9.99 IU/L or less.....NONREACTIVE: IgM antibodies to Hepatitis B Surface antibody are not detected. 10.00 IU/L or greater..REACTIVE: IgM antibodies to Hepatitis B Surface antibody are detected. Hep B core IgM NONREACT NONREACTIVE [facility] Comment: Siemens CentaurXP using LANCE (chemiluminescent immunoassay) technology. NONREACTIVE: IgM antibodies to Hepatitis B Core antigen not detected. EQUIVOCAL: IgM antibodies to Hepatitis B Core antigen may or may not be present. Obtain a ??new specimen and retest. REACTIVE: IgM antibodies to Hepatitis B Core antigen detected. Hep A IgM NONREACT NONREACTIVE [facility] Comment: Siemens CentaurXP using LANCE (chemiluminescent immunoassay) technology. NONREACTIVE: IgM antibodies to Hepatitis A not detected. This does not exclude possibility of exposure to Hepatitis A or early acute infection. EQUIVOCAL:IgM antibodies to Hepatitis A may or may not be present. Suggest recollection and retest. REACTIVE: Antibodies to Hepatitis A detected. Hep C Ab NONREACT NONREACTIVE [facility] Comment: Siemens CentaurXP using LANCE (chemiluminescent immunoassay) technology. NONREACTIVE: Antibodies to Hepatitis C not detected. This does not exclude early acute Hepatitis C infection, possibility of exposure to Hepatitis C, antibodies below detection limit, or to lack of antibody reactivity to the antigen used in this assay. EQUIVOCAL: Antibodies to Hepatitis C may or may not be present. ??Sample to be confirmed by real-time PCR method. REACTIVE: Antibodies to Hepatitis C detected.Sample to be confirmed by real-time PCR method. 08/15/2019 5:14 PM CDT 08/15/2019 5:25 PM CDT Narrative Resulting Agency Comment IN Samuel Escobar MD LAB MICROBIOLOGY - GENERAL O RDERABLES Final Result [facility] [address] [place] [address], [facility] [phone] from Last 3 Months or Most Recently Relevant to Health Maintenance Insurance [facility] Advance Directives For more information, please contact: [phone] * Full Code (Latest Code Status on File) Date Activated Date Inactivated Comments 02/20/2024 3:58 PM 02/23/2024 8:06 PM * Full Code Date Activated Date Inactivated Comments 07/16/2022 10:03 PM 07/20/2022 10:01 PM * Full Code Date Activated Date Inactivated Comments 05/21/2020 3:34 PM 05/25/2020 4:49 PM Care Teams Produce Specialist Relationship Specialty Start Date End Date Cody Rice NP [address] [address] PCP - General Nurse Practitioner 12/04/23 No, Physician 07/18/19
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
[2024-05-13 12:27] VITALS: BP 114/91; PULSE 41; RESP 16; TEMP 36.3; O2SAT 100
--- OUTSIDE RECORDS SUMMARY | 2024-05-13 15:17 | XMS_ITS | Encounter Summary ---
Author Organization [facility] Address [address] [place] [address] Phone Care Team Providers Care Poultry Feed Supervisor Name Role Phone Lauro Peck MD Unavailable [phone] Julian Fitch MD Unavailable [phone] Cody Rice APRN, MARKETING FINANCE MANAGER Primary Care Pr ovider Bassem Newman MD Unavailable [phone] Danni Babb Unavailable Unavailable Encounter Details Date Type Department Care Team (Late st Contact Info) Description 04/17/2024 Results Follow-Up [facility] Emergency [address] [place] [address] Lorne Hazel RN [place] Social History Tobacco Use Types Packs/Day Years Used Date Smoking Tobacco: Some Days Cigars Smokeless Tobacco: Never Alcohol Use Standard Drinks/Week Comments Yes 0 (1 standard drink = 0.6 oz pure alcohol) say's he bindges and drinks too much from time to time [facility] Utilities Answer Date Recorded In the past 12 months has [employer], gas, oil, or water company threatened [...] often do you attend chur ch or zoroastrianism services? More than 4 times per year 12/28/2023 Do you belong to any clubs o r organizations such as zoroastrianism groups, unions, fraternal or athletic groups, or [...] Total Score - Questions 1-9 0 12/17 [facility] of Occupat ional [facility] - Occupational Stress Questionnaire Answer Date [...] place to sleep or slept in a residential (including now)? Yes 06/13/2023 Housing Stability Vital Sign Answer Homer e Recorded In the last 12 months, was t here a time when you were not able to pay the mortgage or rent on time? Yes 12/28/2023 In the past 12 months, how m any times have you moved where you were living? 3 12/28/2023 At any time in the past 12 m [facility], were you homeless or living in a residential (including now)? Yes 12/28/2023 Sexually Active Control [...] (Latest Contact Info) Description 05/14/2024 2:30 PM FOAM FABRICATOR [facility] [address] [place] [phone] Paulina Forde, SALES INSPECTOR, MARKETING FINANCE MANAGER [address] [place] [address] Discharge Disposition: Discharged to home or Selfcare 05/17/2024 1:45 PM FOAM FABRICATOR Physical Therapy [facility] [address], [address] [place] [phone] Kaylen Iglesias, PT [place] Discharge Disposition: Discharged [...] patient obtain Free Ride Bus Pass for [facility] [email or web address] Why is this important? Part of staying [...] documented as of this encounter Care Teams Poultry Feed Supervisor Relationship Specialty Start Date End Date Cody Rice APRN, MARKETING FINANCE MANAGER [address] [address] PCP - General Advanced Practice Nurse 11/10/23 Lauro Peck MD [address] [place] [address] Consulting Physician Medical Oncology 10/27/23 Julian Fitch MD [address] [place] [address] Consulting Physician Radiation Oncology 10/27/23 Bassem Newman MD [address] [place] [address] Consulting Physician Otolaryngology & Facial Plastic Surgery 11/14/23 Danni Babb Health Stock Hanger 04/10/24 documented as of this encounter
--- OUTSIDE RECORDS SUMMARY | 2024-05-13 15:17 | XMS_ITS | Clinical Summary ---
Author Organization [facility] Address [address] [place] [address] Phone Care Team Providers Care Supervisor Cab Name Role Phone Lauro Peck MD Unavailable [phone] Julian Fitch MD Unavailable [phone] Cody Rice APRN, NAPRAPATH Primary Care Pr ovider Bassem Newman MD Unavailable [phone] Danni Babb Unavailable Unavailable Allergies No known [...] 20 Tablet 04/06/20 24 024 nystatin (MYCOSTATIN) [id number] UNIT/ML Suspension Take 5 mL by mouth [...] Type Department Care Team Description 05/11/2024 [facility]phone [facility] [address] [place] [address] Lauro Peck MD 05/09/2024 9:54 AM RESERVE OFFICER - 05/09/2024 11:59 PM RESERVE OFFICER [facility] [address] [place] [phone] Julian Fitch MD Discharge Disposition: Discharged to home or Selfcare 05/09/2024 Travel 05/08/2024 [facility] Management [address] [place] [address] Danni Babb Care Management (Monthly monitoring call-(Apr)) 05/04/2024 [facility]ill [facility] [address] [place] [address] Paulina Forde APRN, NAPRAPATH Medication Refill 05/03/2024 [facility]phone [facility] [address] [place] [address] Cody Rice APRN, NAPRAPATH Advice Only; Medication Management 04/25/2024 Patient Outreach [facility] Failure Management [address] [place] [address] Alisson Shaw lift supervisor of Care (TCM week 1) 04/19/2024 Patient Out[facility] Management [address] [place] [address] Viviane Torres RN Transition of Care (Post Discharge Call ) 04/17/2024 3:52 PM RESERVE OFFICER - 04/17/2024 5:40 PM RESERVE OFFICER [facility] [address] [place] [phone] Discharge Disposition: LWBS 04/17/2024 Travel 04/17/2024 Results [facility] [address] [place] [address] Lorne Hazel, DANIELLE 04/17/2024 [facility]phone [facility] [address] [place] [address] Lorne Hazel, SKI PATROLLER Follow-up (wound culture) 04/15/2024 Patient Outreach [facility] Manager Heart Failure Management [address] [place] [address] Evelyn Tee RN Transition of Care (Post discharge, initial call ) 04/14/2024 10:04 AM RESERVE OFFICER - 04/14/2024 11:14 AM RESERVE OFFICER [facility] [address] [place] [address] Bre Joyce APRN, NAPRAPATH Paronychia of left thumb Discharge Disposition: Discharged to home or Selfcare 04/14/2024 Travel 04/13/2024 Patient Outreach [facility] Manager Heart Failure Management [address] [place] [address] Flori Cruz RN Transition of Care (Transition of care week 1) 04/12/2024 9:11 AM RESERVE OFFICER - 04/12/2024 11:59 PM RESERVE OFFICER Hospital [facility] Diagnostic Radiology [address] [place] [address] Paulina Forde, MOLECULAR MODELER, NAPRAPATH Celia Jenkins, MS [facility] LOGGER Discharge Disposition: Discharged to home or Selfcare 04/10/2024 Patient Outreach [facility] Manager Heart Failure Management [address] [place] [address] Danni Babb 04/09/2024 2:40 PM RESERVE OFFICER [facility] [address] [place] [address] Lauro Peck MD Baxley, Brandy M, MOLECULAR MODELER, NAPRAPATH Acute radiation dermatitis (Primary Dx); Squamous cell carcinoma of larynx (HCC); History of head and neck radiation; History of cancer chemotherapy Discharge Disposition: Discharged to home or Selfcare 04/09/2024 Travel 04/07/2024 Patient Outreach [facility] Failure Management [address] [place] [address] Lidia Jc RN Transition of Care (General Post Discharge Follow Up) 04/06/2024 2:47 PM RESERVE OFFICER - 04/06/2024 6:56 PM RESERVE OFFICER [facility] [address] [place] [phone] Ayo Marie, ESTELA Throat pain Discharge Disposition: Discharged to home or Selfcare 04/06/2024 Travel 04/06/2024 Refill [facility] [address] [place] [phone] Lauro Peck MD 04/06/2024 Patient Outreach [facility] Failure Management [address] [place] [address] Lia Chamberlain, JACK WINDER Care Management (Request for prescription refill) 03/29/2024 Patient Outreach [facility] Failure Management [address] [place] [address] Viviane Torres RN Patient Outreach (TOC1 ) 03/28/2024 Telephone [facility] [address] [place] [phone] Lauro Peck MD Medication Refill 03/24/2024 Patient [facility] Management [address] [place] [address] Viviane Torres RN Transition of Care (Post Discharge Call ) 03/23/2024 3:06 AM RESERVE OFFICER - 03/23/2024 3:52 AM RESERVE OFFICER [facility] [address] [place] [address] Sylvester Chawla MD Otalgia of both ears Discharge Disposition: Discharged to home or Selfcare 03/23/2024 Travel 03/16/2024 Patient Outreach [facility] Heart Failure Management [address] [place] [address] Evelyn Tee RN Transition of Care (Week #1 ) 03/13/2024 9:30 AM RESERVE OFFICER [facility] [address] [place] [phone] Julian Fitch MD Oropharynx cancer (HCC) (Primary Dx); History of therapeutic radiation; History of cancer chemotherapy; Acute radiation dermatitis; Dysgeusia; Adverse effect of radiation, subsequent encounter Discharge Disposition: Discharged to home or Selfcare 03/13/2024 Travel 03/12/2024 Refill [facility] [address] [place] [phone] Lauro Peck MD Medication Refill 03/12/2024 Patient Outreach [facility] Management [address] [place] [address] Lisa Ontiveros LPN Care Management (Monthly monitor call) 03/08/2024 Patient Outreach [facility] Manager Heart Failure Management [address] [place] [address] Viviane Torres lift supervisor of Care (Post Discharge Call ) 03/07/2024 10:12 AM RESERVE OFFICER - 03/07/2024 1:14 PM RESERVE OFFICER [facility] [address] [place] [address] Alvin Kenney MD Viral pharyngitis Discharge Disposition: Discharged to home or Selfcare 03/07/2024 Travel 02/27/2024 11:40 AM RESERVE OFFICER [facility] [address] [place] [phone] Lauro Peck MD Pure hypercholesterolemia (Primary Dx); Oropharynx cancer (HCC); Cannabis abuse; Alcohol abuse; History of cancer chemotherapy; Pain, neoplasm-related Discharge Disposition: Discharged to home or Selfcare 02/27/2024 11:30 AM RESERVE OFFICER [facility] [address] [place] [phone] Julian Fitch MD Oropharynx cancer (HCC) (Primary Dx); History of therapeutic radiation; History of cancer chemotherapy; Cannabis abuse; Alcohol abuse Discharge Disposition: Discharged to home or Selfcare 02/27/2024 Travel 02/20/2024 Documentation Only [facility] Oncology Services [address] [place] [phone] Julian Fitch MD 02/20/2024 Patient Outreach [facility] Manager Heart Failure Management [address] [place] [address] Saira Do lift supervisor of Care (Week 1) 02/14/2024 Patient Outreach [facility] Manager Heart Failure Management [address] [place] [address] Alisson Shaw RN Transition of Care (TCM 1st attempt) 02/13/2024 8:15 AM CDT - 02/13/2024 9:15 AM CDT [facility] [address] [place] [address] Alvin Kenney MD Ionizing radiation burn Discharge Disposition: Discharged to home or Selfcare 02/13/2024 Travel from Last 3 Months Immunizations Immunization Administration Dates Next Due Covid-19 Vaccine, Vector-nr, Rs-ad26, Pf, 0.5 Ml ([employer]) 12/25/2020 Influenza Vaccine 01/10/2016,03/03/2015 Influenza Vaccine, Quadrivalent, PF 01/16,01/14/2023,05/24/2020,01/01,03/09/2018 Influenza, Seasonal, Injecta ble, Undefined 03/03/2015 Pneumococcal Vaccine Adult - 23 Valent 6 Pneumococcal conjugate PCV20 , polysaccharide [id number] conjugate, adjuvant, PF 11/11/2023 TB Skin Test [...] drinks too much from time to time [employer] Answer Date Recorded In the past 12 months has [employer], gas, oil, or water [email or web address] threatened to shut off services in your [...] often do you attend chur ch or taoist services? More than 4 times per year 12/28/2023 Do you belong to any clubs o r organizations such as rastafarian groups, unions, fraternal or athletic groups, or [...] Total Score - Questions 1-9 0 12/17 [facility] of Occupat ional [facility] - Occupational Stress Questionnaire Answer Date [...] place to sleep or slept in a intermediate (including now)? Yes 06/13/2023 Housing Stability Vital Sign Answer Homer e Recorded In the last 12 months, was t here a time when you were not able to pay the mortgage or rent on time? Yes 12/28/2023 In the past 12 months, how m any times have you moved where you were living? 3 12/28/2023 At any time in the past 12 m [facility], were you homeless or living in a intermediate (including now)? Yes 12/28/2023 Sexually Active Control Partners Comments Not Currently Sex and Gender Information Value Date Recorded Sex Assigned at Male 12/03/2023 4:33 AM CDT Legal Sex Male 8:47 PM CDT Gender Identity Male 12/03/2023 4:33 AM CDT Sexual Orientation Not on file Last Filed Vital Signs Vital Sign Reading Time Taken Comments Blood Pressure 107/88 04/17/2024 3:56 PM RESERVE OFFICER Pulse 63 04/17/2024 3:56 PM RESERVE OFFICER Temperature 36 ??C (96.8 ??F) 04/17/2024 3:56 PM RESERVE OFFICER Respiratory Rate 18 04/17/2024 3:56 PM RESERVE OFFICER Oxygen Saturation 98% 04/17/2024 3:56 PM RESERVE OFFICER Inhaled Oxygen Concentration - - Weight 69.4 kg (153 lb) 04/17/2024 3:56 PM RESERVE OFFICER Height 175.3 cm (5' 9 ) 04/17/2024 3:56 PM RESERVE OFFICER Body Mass Index 22.59 04/17/2024 3:56 PM RESERVE OFFICER Plan of Treatment Upcoming Encounters Date Type Department Care Team (Latest Contact Info) Description 05/14/2024 2:30 PM RESERVE OFFICER [facility] [address] [place] [phone] Paulina Forde, MOLECULAR MODELER, NAPRAPATH [address] [place] [address] Discharge Disposition: Discharged to home or Selfcare 05/17/2024 1:45 PM RESERVE OFFICER Physical [facility] [address], [address] [place] [address] Kaylen Iglesias, PT [place] Discharge Disposition: Discharged to home or Selfcare [...] patient obtain Free Ride Bus Pass for [facility] Transit Why is this important? Part of [...] TO MID THIGH Routine 05/09/2024 3:10 PM RESERVE OFFICER Oropharynx cancer (HCC) History of therapeutic radiation History of cancer chemotherapy CULTURE, AEROBIC STAT 04/14/2024 11:0 4 AM RESERVE OFFICER INCISION AND DRAINAGE Routine 04/14/2024 10:52 AM RESERVE OFFICER XR SWALLOWING FUNCTION STUDY WITH VIDEO/CINE Less Than 2 weeks 04/12/2024 9:52 AM RESERVE OFFICER Acute radiation dermatitis CORINA GARCIA HEPARIN/SST TOP TUBE STAT 04/06/2024 4:47 PM RESERVE OFFICER LAVENDER TOP TUBE STAT 04/06/2024 4:4 7 PM RESERVE OFFICER EXTRA TUBES STAT 04/06/2024 4:47 PM RESERVE OFFICER INCISION AND DRAINAGE Routine 04/06/2024 4:31 PM RESERVE OFFICER GROUP A STREP BY PCR STAT 03/07/2024 10:34 AM RESERVE OFFICER HEPATITIS C ANTIBODY Routine 05/24/2023 10:35 AM RESERVE OFFICER Encounter for hepatitis C virus screening test for high risk patient PSA SCREEN Routine 05/24/2023 10:35 AM RESERVE OFFICER Screening for prostate cancer from Last 3 Months or Most Recently Relevant to Health Maintenance Results * PET CT TUMOR IMAGING SKULL BASE TO MID THIGH (05/09/2024 3:10 PM RESERVE OFFICER) Anatomical Region Laterality Modality BODY N/A Positron Emissio n Tomography (PET) 05/10/2024 9:07 AM RESERVE OFFICER Impressions 05/10/2024 9:09 AM RESERVE OFFICER IMPRESSION: Post treatment changes in the head and neck with metabolic resolution of the previous hypermetabolic oropharyngeal mass and cervical lymphadenopathy. No evidence of FDG avid distant metastasis. Patchy opacities in the left lower lobe new from the prior study thought likely to be infectious/inflammatory, three-month follow-up chest CT recommended. ?? Narrative 05/10/2024 9:09 AM RESERVE OFFICER EXAM DESCRIPTION: ?? PET CT TUMOR IMAGING [...] AM T: ??05/10/2024 9:07 AM Report ID: [id number] Reading Location: ??[id number] Procedure Note Buddy Willis Jr., MD - [...] by Buddy Willis M.D. CH: Report ID: [id number] Reading Location: [id number] IMPRESSION: Post treatment changes in the head and neck with metabolic resolution of the previous hypermetabolic oropharyngeal mass and cervical lymphadenopathy. No evidence of FDG avid distant metastasis. Patchy opacities in the left lower lobe new from the prior study thought likely to be infectious/inflammatory, three-month follow-up chest CT recommended. Julian Fitch MD IMG PET Final R esult * Culture, Aerobic, Wound [id number] (04/14/2024 11:04 AM RESERVE OFFICER) CULTURE RESULTS STREPTOCOCCUS ANGINOSUS 04/15/2024 8:29 PM RESERVE OFFICER [facility] Comment:DRUG OF CHOICE IS AM PICILLIN OR PENICILLIN Culture SPECIMEN COLLECTION BY DRAINAGE / Unknown Non-Phlebotomy Collection / Unknown 04/14/2024 11:04 AM RESERVE OFFICER 04/14/2024 11:13 AM RESERVE OFFICER Bre Joyce MOLECULAR MODELER, NAPRAPATH MICROBIOLOGY - GENERA L ORDERABLES Final Result [facility] [address] [place] [address], * Incision and Drainage (04/14/2024 10:52 AM RESERVE OFFICER) Narrative Alvin Kenney MD - 04/14/2024 10:52 AM RESERVE OFFICER Bre Joyce APRN, CNP ? 04/14/2024 11:06 AM Incision and Drainage Performed by: Bre [place] APRN, CNP Authorized by: Bre [place] APRN, CNP ?? Consent: ??Consent obtained: ??Verbal ??Consent given by: ??Patient ??Risks, benefits, and alternatives were discussed: yes ?Risks discussed: ??Bleeding, incomplete drainage, pain and infection ??Alternatives discussed: ??No treatment, delayed treatment and referral [facility] protocol: ??Procedure explained and questions answered to [...] FUNCTION STUDY WITH VIDEO/CINE (04/12/2024 9:52 AM RESERVE OFFICER) Anatomical Region Laterality Modality GI, Abdomen N/A Digital Radiogra phy 04/12/2024 10:2 8 AM RESERVE OFFICER Impressions 04/12/2024 10:31 AM RESERVE OFFICER IMPRESSION: ?? Aspiration of thin liquids and nectar thick liquids, as above. Please correlate with Speech Pathology report. Narrative 04/12/2024 10:31 AM RESERVE OFFICER EXAM DESCRIPTION: ?? XR SWALLOWING FUNCTION STUDY [...] AM T: ??04/12/2024 10:28 AM Report ID: [id number] Reading Location: ??[id number] Procedure Note Joselito Mandujano MD - 04/12/2024 [...] 10:28 AM - Electronically signed by Joselito Manduajno M.D. MZ: BERTHA Report ID: [id number] Reading Location: [place] [address] IMPRESSION: Aspiration of thin liquids and nectar thick liquids, as above. Please correlate with Speech Pathology report. Paulina Forde MOLECULAR MODELER, NAPRAPATH IMG FLUOROSCOPY ORDERA BLES Final Result * CORINA GARCIA HEPARIN/SST TOP TUBE (04/06/2024 4:47 PM RESERVE OFFICER) Blood No Phlebotomy Charged / Unknown 04/06/2024 4:47 PM RESERVE OFFICER 04/06/2024 5:31 PM RESERVE OFFICER Result [facility] Ayo Marie PAC HEMATOLOGY ORDERABLE S Final Result Performing Organization Address [facility] Co de Phone Number [facility] [address] [place] [address] * Lavender Top Tube (04/06/2024 4:47 PM RESERVE OFFICER) Blood No Phlebotomy Charged / Unknown 04/06/2024 4:47 PM RESERVE OFFICER 04/06/2024 5:31 PM RESERVE OFFICER Ayo Marie PAC HEMATOLOGY ORDERABLE S Final Result Performing Organization Address [facility] Co de Phone Number [facility] [address] [place] [address] * Incision and Drainage (04/06/2024 4:31 PM RESERVE OFFICER) Narrative Montrell Quiroga MD - 04/06/2024 4:31 PM RESERVE OFFICER Ayo Marie PAC ? 04/06/2024 ??6:49 PM Incision and Drainage Performed by: Ayo Marie PAC Authorized by: Ayo Marie PAC ?? Consent: ??Consent obtained: ??Verbal and written ??Consent given by: ??Patient ??Risks, benefits, and alternatives were discussed: yes ?Risks discussed: ??Incomplete drainage, infection, pain and bleeding ??Alternatives discussed: ??Alternative treatment [facility] protocol: ??Procedure explained and questions answered to [...] A STREP BY PCR (03/07/2024 10:34 AM RESERVE OFFICER) [facility] GROUP A STREP BY PCR NOT DETECTED NOT DETECTED 03/07/2024 11:25 AM RESERVE OFFICER [facility] Swab SPECIMEN FROM THROAT / Unknown Non-Phlebotomy Collection / Unknown 03/07/2024 10:34 AM RESERVE OFFICER 03/07/2024 10:50 AM RESERVE OFFICER Alvin Kenney MD MICROBIOLOGY - GENERAL ORD ERABLES Final Result Performing Organization Address [facility] Co de Phone Number [facility] [address] [place] [address] * PSA SCREEN (05/24/2023 10:35 AM RESERVE OFFICER) [facility] PSA SCREEN, TOTAL 0.44 <4.00 ng/mL 05/24/2023 11:57 AM RESERVE OFFICER [facility] Blood Venipuncture / Unknown 05/24/2023 10:35 AM RESERVE OFFICER 05/24/2023 10:54 AM RESERVE OFFICER Narrative [facility] - 05/24/2023 11:57 AM RESERVE OFFICER The [employer] Total PSA assay is a Chemiluminescent Microparticle Immunoassay (CMIA) for the quantitative determination of total PSA (both free PSA and PSA complexed to [id number]) in human serum. Total PSA values obtained with different assay methods, including Guzman PSA assays, cannot be used interchangeably. us Cody Rice APRN, NAPRAPATH CHEMISTRY ORDERA BLES Final Result Performing Organization Address [facility] Co de Phone Number [facility] [address] [place] [address] * HEPATITIS C ANTIBODY (05/24/2023 10:35 AM RESERVE OFFICER) [facility] hepatitis C antibody 0.12 <1 S/CO [facility] ARCH [id number] 05/24/2023 8:45 PM RESERVE OFFICER [facility] Comment: Signal/Cutoff ratio ??< 0.79 is Nondetected Signal/Cutoff ratio 0.80-0.99 is Grayzone Signal/Cutoff ratio > 0.99 is Detected Supplemental assays are recommended if signal/cutoff ratio is >/=1.00. ??Signal/cutoff ratio result >/= 5.00 is 97% predictive of positivity for recombinant immunoblot assay (RIBA) and will be reported to the [place] Department of Public Health as required. Blood Venipuncture / Unknown 05/24/2023 10:35 AM RESERVE OFFICER 05/24/2023 10:54 AM RESERVE OFFICER us Cody Rice APRN, CNP CHEMISTRY ORDERA BLES Final Result [facility] [address] [facility] [place] [address], from Last 3 Months or Most Recently Relevant to Health Maintenance Insurance MEDICAID [place] Advance Directives * Full Code (Latest Code [...] measures to stabilize the patient. Care Teams Supervisor Cab Relationship Specialty Start Date End Date Cody Rice APRN, RONAL [address] [address] PCP - General Advanced Practice Nurse 11/10/23 Lauro Peck MD [address] [place] [address] Consulting Physician Medical Oncology 10/27/23 Julian Fitch MD [address] [place] [address] Consulting Physician Radiation Oncology 10/27/23 Bassem Newman MD [address] [address] Consulting Physician Otolaryngology & Facial Plastic Surgery 11/14/23 D[facility] Wound Care Rn 04/10/24
--- OUTSIDE RECORDS SUMMARY | 2024-05-13 15:17 | XMS_ITS | Continuity of Care Document ---
Author Organization [facility] Address [address] [place] [address] Phone Care Team Providers Care Evaluator Transfer Students Name Role Phone Eh CREDIT AND COLLECTION MANAGERSingh Tellon Unavailable Unavailable Allergies, Adverse Reactions, Alerts Substance Reaction Status Criticality No Known Allergies Active No Inform ation Procedures Procedure Date COLLECTION OF VENOUS BLOOD BY VENIPUNCTU RE OFFICE/OUTPATIENT VISIT, NEW Advance Directives Directive Yes / No Effective Date File Name No Information Encounters Encounter Description Practice Location Reason(s) For Visit Diagnoses Date Provider Providers Copied on Encounter [facility], [address], [place], [place], [address] , tel: [phone] [facility] [place] No Information 4 Eh Nichols. [address], [place], [place], [address], . tel:[phone] [facility], [address], [place], [place], [address] , tel: [phone] [facility] [place] No Information 3 Eh Nichols. [address], [place], [place], [address], [place]. tel:[phone] Referring Provider: Magdalena Stauffer, [address], [place], [address]. tel:[phone] OFFICE/OUTPA TIENT VISIT, NEW [facility], [address], [place], [place], [address] , tel: [phone] [facility] Care (chief complaint) Thyroid problems (chief complaint) Encounter for screening for malignant neoplasm of colonEncounter for screening for malignant neoplasm of prostateEncounte r for screening for other disorderEncounte r for adult health check-upBody mass index (BMI) 29.0-29.9, adult 3 Eh Magdalena. [address], [place], [place], [address], [place]. tel:[phone] Consulting Provider: Magdalena Stauffer, [address], [place], [address]. tel:[phone] [facility], [address], [place], [place], [address] , [place] tel:[phone] Care Guidelines 1 No Information Family History Family Member Type Diagnosis Age At Onset No Information Payers Payer name Insurance type Covered republican ID Authoriza tion(s) No Information Social History [...] Establish Care Establish Care - PCP - [facility] - LAST SEEN MONTH-2 MONTHS.REFERRED BY ARC [...] TO COUGH THYROID - NOW CURRENTLY SALVATION [employer] [facility]. MAT: - ETOH - ANTONINO'S HARD LEMONADE & VODKA - BINGES & DON'T COUNT AVG DAILY USE: 4 - ANTONINO'S LEMONADE 24 OZ CANS & VODKA LAST DRINK: 'BEFORE i WENT [facility] Thyroid problems Presenting symp toms include [...]
--- OUTSIDE RECORDS SUMMARY | 2024-05-13 15:17 | XMS_ITS | Clinical Summary ---
Author Organization [facility] Address [address] [place] [address] Care Team Providers Care Regional Transportation Manager Name Role Phone Cody Rice APRN-CIRCULATION MANAGER Primary Care Pro vider Source Comments [facility],non-owned Affiliates and Associated Physician Practices is amultiple site organization consisting of ambulatory clinics and hospital sitesin [place], [place], [place] and [place]. This disclosure is being madepursuant to the Care Everywhere program and may not contain all information available regarding this patient. Last updated 18.[facility] Allergies No known active allergies Medications * [...] q6h PRN (Pain). 01/09/2016 Active HYDROcodone-acetami nophen ([place]) 5-325 MG tablet Take 1 (one) tablet [...] CDT) BUN 12 7 - 26 mg/dL [facility] Creatinine 1.1 0.6 - 1.2 [...] CENTER Anion Gap 11 8 - 18 [facility] BUN/Creatinine Ratio 11 7 - 23 [facility] Osmolality Calculated 293 270 - 300 mOsm/kg [facility] eGFR >60 >60 mL/min/1.7 3 m2 [facility] Blood specimen (specimen) BLOOD SPECIMEN / Unknown 01/15/2016 5:10 AM CDT 01/15/2016 5:15 AM CDT Jose A Marlow MD LAB - CHEMISTRY ORD ERABLES Performing Organization Address City/State/[facility] Co de Phone Number [facility] [address] [phone] from Last 3 Months or Most Recently Relevant to Health Maintenance Care Teams Regional Transportation Manager Relationship Specialty Start Date End Date Cody Rice APRN-CIRCULATION MANAGER [address] [address] PCP - General Nurse Practitioner 11/18/23
--- OUTSIDE RECORDS SUMMARY | 2024-05-13 15:17 | XMS_ITS | CONTINUITY OF CARE DOCUMENT ---
Author Name felicita mims Address Unknown Organization [facility] Address [address] [facility] [address] [facility] [address] [place] [address] Phone [phone] Care Team Providers Care Maintenance Man Name Role Phone Aga NAQVI, Andrea Unavailable INSURANCE PROVIDERS Payer name Policy type / Coverage type [place] [employer] red democrat [employer] [facility] [facility] Medicaid 0 [id number]
--- OUTSIDE RECORDS SUMMARY | 2024-05-13 15:17 | XMS_ITS ---
Author Organization [facility] Address [address] [place] [address] Phone Care Team Providers Care Oven Dauber Name Role Phone Lauro Peck MD Unavailable [phone] Julian Fitch MD Unavailable [phone] Cody Rice APRN, SKIP OPERATOR Primary Care Pr ovider Bassem Newman MD Unavailable [phone] Danni Babb Unavailable Unavailable Active Problems Problem [...]
--- OUTSIDE RECORDS SUMMARY | 2024-05-13 15:17 | XMS_ITS | Patient Health Summary ---
Author Organization [facility] Address [address] [place] [address] Care Team Providers Care Blanket Inspector Name Role Phone Cody Rice APRN-LIBRARIAN SPECIAL LIBRARY Primary Care Pro vider Note from [facility],non-owned Affiliates and Associated Physician Practices is amultiple site organization consisting of ambulatory clinics and hospital sitesin [place], [place], [place] and [place]. This disclosure is being madepursuant to the Care Everywhere program and may not contain all information available regarding this patient. Last updated 18.[facility] Allergies No known active allergies Medications * [...] by mouth q6h PRN (Pain). * HYDROcodone-acetaminophen ([employer]) 5-325 MG tablet(Started 11/11/2023) Take 1 (one) [...] Cancer of base of tongue (HCC) * ND LARYNGOSCOPY,FLEX FIBER,DIAGNOSTIC(Performed 11/18/2023) Performed for Cancer of base of tongue (HCC) * ND FNA BX W US GDN 1ST LES(Performed [...] DATE/TIME OF EXAM: ??11/18/2023 11:46 AM, LOCATION ??[facility] INDICATION: C01: Cancer of base of tongue [...] Report dictated by Erickson Herron MD, MD (associate professor of radiology). Breanna Julian MD have personally reviewed and interpreted this examination/study. > Interpreting Provider: Breanna Fernandez MD on 11/18/2023 4:25 PM Procedure Note Breanna Fernandez MD - 11/18/2023 PROCEDURE: FL SWALLOWING FUNCTION STUDY, DATE/TIME OF EXAM: 11/18/2023 11:46 AM, LOCATION [facility] INDICATION: C01: Cancer of base of tongue [...] Report dictated by Erickson Herron MD, MD (associate professor of radiology). Breanna Julian MD have personally reviewed and interpreted this examination/study. > Interpreting Provider: Breanna Fernandez MD on 11/18/2023 4:25 PM Bassem Newman MD FLUOROSCOPY ORDERABL ES * ND LARYNGOSCOPY,FLEX FIBER,DIAGNOSTIC (11/18/2023 10:35 AM CDT) Bassem Soler MD - 11/18/2023 10:35 AM CDT Bassem Newman MD ? 11/18/2023 10:35 AM Procedure Note Anesthesia: Lidocaine 2% and Stiven-Synephrine 1/2% Endoscopy Type: ??Flexible Ixegq-Lunfnpunurfbnu-Hpnxvrculyfv Procedure Details: ??Informed consent was obtained. ??The [...] The patient tolerated procedure well. Complications: None Bassem Newman MD PROCEDURE/MINOR SURG ICAL ORDERABLES * ND FNA BX W US GDN 1ST LES [...] Case Report Medical Cytology Report ? Case: [id number] ? Authorizing Provider: ??Bassem Newman MD ?Collected: ? 11/18/2023 09:30 AM ? Ordering Location: ? [facility] - ??Received: ?11/18/2023 12:26 PM ? ENT ? Pathologist: ? Samm Warren MD ? Specimen: ?Neck Mass ? 11/22/2023 10:56 AM CDT [facility] Specimen Adequacy Adequate cellularity for evaluation. 11/22/2023 10:56 AM CDT [facility] Final Diagnosis Neck mass, right, fine needle aspiration: - Malignant cells present, compatible with poorly differentiated non-small cell carcinoma, see comment 11[facility]2023 10:[facility] Clinical History The patient is a 53 year-old male with large base of tongue, supraglottic mass and bilateral cervical adenopathy highly suspicious for malignancy. On physical exam, multiple pathologically enlarged firm lymph nodes are seen in right level 2. 11/22/2023 10:56 AM [facility] Gross Description 2 pap, 2 diff-quik stained slides and 1 cellblock from a Right neck Lymph node (Base of tongue Squamous cell carcinoma) Immediate interpretation by Dr. Ramon Hope Right cervical Lymph node, FNA: Episode 1: Pass 1,2 - Malignant cells present , recommend additional passes for cellblock . Reported to Dr Newman (9:41am) 11/22/2023 10:56 AM [facility] Microscopic Description The cytology smears [...] for additional ancillary studies. 11/22/2023 10:56 AM [facility] Pathologist Location at [facility] 11/22/2023 10:56 AM [facility] Disclaimer The performance characteristics of all immunohistochemical and indirect immunofluorescence stains (if any) cited in this report were determined by the Histopathology Laboratory of [facility]. Some of these tests rely on the use of analyte-specific reagents and are subject to specific labeling requirements by the US Food and Drug Administration. Such tests were developed by the Histology Laboratory of [facility] and have not been cleared or approved [...] the attending (teaching) pathologist. 11/22/2023 10:56 AM [facility] Embedded Images 11/22/2023 10:56 AM CDT [facility] Pathology/Cytolo gy MASS OF NECK / Unknown 11/18/2023 9:30 AM CDT 11/18/2023 12:26 PM CDT Bassem Newman MD LAB - PATHOLOGY/CYTO LOGY ORDERABLES [facility] [address] [phone] * PATH CONSULT ON REFERRED CASE (11/18/2023 9:02 AM CDT) Final Diagnosis Larynx, biopsy (OSC: [id number]; 08/12/2023 ): - Squamous cell carcinoma, invasive, moderately differentiated 12/02/2023 3:11 PM CDT [facility] Microscopic Description and Comment Microscopic examination substantiates the final diagnosis. The focal complexity of architecture is sufficient for a diagnosis of invasive squamous cell carcinoma, although there is also a large amount of yeassentl-oz-hnoz. This specimen was submitted as larynx , and therefore no p16 stain was performed 12/02/2023 3:11 PM CDT [facility] Clinical History 53 year old man with large supraglottic / base of tongue mass emanating from the vallecula . 12/02/2023 3:11 PM CDT [facility] Materials Received Received are 3 H and E stained slide(s) labeled [id number] along with a copy of the outside pathology report. [place] [address]. All original materials are returned to the referring institution, along with a copy of our final report. 12/02/2023 3:11 PM CDT [facility] Addendum 1 Immunohistochemistry for p16 is negative in lesional cells with appropriately reactive on slide positive control. 12/02/2023 3:11 PM CDT [facility] Addendum electronically signed by Loren Mendoza MD on 12/02/2023 at 3:10 PM Pathologist Location at [facility] 12/02/2023 3:11 PM CDT [facility] Disclaimer The performance characteristics of all immunohistochemical and indirect immunofluorescence stains (if any) cited in this report were determined by the Histopathology Laboratory of [facility]. Some of these tests were developed by [...] attending (teaching) pathologist. 12/02/2023 3:11 PM CDT [facility] Case Report Surgical Pathology Report ? Case: [id number] ? Authorizing Provider: ??Bassem Newman MD ?Collected: ? 11/18/2023 09:02 AM ? Ordering Location: ? [facility] - ??Received: ?11/18/2023 09:02 AM ? Pathology Lab ? Pathologist: ? Afshan Enamorado MD ? Specimen: ?Slide Consultation ? 12/02/2023 3:11 PM CDT [facility] Embedded Images 12/02/2023 3:11 PM CDT [facility] Pathology/Cytolo gy SURGICAL PATHOLOGY CONSULTATION AND REPORT ON REFERRED SLIDES PREPARED ELSEWHERE / Unknown 11/18/2023 9:02 AM CDT 11/18/2023 9:02 AM CDT Bassem Newman MD LAB - PATHOLOGY/CYTO LOGY ORDERABLES [facility] [address] [phone] * CT HEAD WO CONTRAST (02/12/2016 9:57 [...] 10.0 3.5 - 10.5 10? 3 /uL [facility] RBC 4.44 4.30 - 5.70 10? 6 /uL [facility] Hemoglobin 14.7 13.5 - 17.5 g/dL [facility] Hematocrit 41.3 39.0 - 50.0 % [facility] MCV 93.0 81.0 - 97.0 fL [facility] MCH 33.1 28.0 - 34.0 pg [facility] MCHC 35.6 32.0 - 36.0 g/dL [facility] Platelet Count 354 150 - 400 10? 3 /uL [facility] RDW-SD 47.3 36.0 - 50.0 fL [facility] RDW-CV 14.0 11.2 - 14.8 % [facility] MPV 9.8 9.3 - 12.8 fL [facility] Neutrophils % 70.8(H) 35.0 - 70.0 % [facility] Lymphocytes % 19.6(L) 19.7 - 55.1 % [facility] Monocytes % 7.5 3.0 - 15.0 % [facility] Eosinophils % 1.6 0.0 - 6.0 % [facility] Basophil % 0.5 0.0 - 1.5 % [facility] Neutrophils Absolute 7.1(H) 1.6 - 7.0 10? 3 /uL [facility] Lymphocyte Absolute 2.0 0.8 - 2.9 10? 3 /uL [facility] Monocytes Absolute 0.75(H) 0.14 - 0.66 10? 3 /uL [facility] Eosinophils Absolute 0.16 0.00 - 0.22 10? 3 /uL [facility] Basophils Absolute 0.05 0.00 - 0.06 10? 3 /uL [facility] Immature Granulocytes % 0.3 0.0 - 1.0 % [facility] Blood specimen (specimen) BLOOD SPECIMEN / Unknown 01/15/2016 5:10 AM CDT 01/15/2016 5:15 AM CDT Jose A Marlow MD LAB - HEMATOLOGY OR DERABLES Performing Organization Address City/State/[facility] Co de Phone Number [facility] [address] [place] [address] * (ABNORMAL) BASIC METABOLIC PANEL (CALCIUM TOTAL) (01/15/2016 5:10 AM CDT) Only the most recent of5 resultswithin the time period is included. BUN 12 7 - 26 mg/dL [facility] Creatinine 1.1 0.6 - 1.2 mg/dL [facility] Sodium 142 136 - 145 mmol/L [facility] Potassium 3.9 3.5 - 4.5 mmol/L [facility] Chloride 111(H) 98 - 107 mmol/L [facility] CO2 24 22 - 29 mmol/L [facility] Glucose 92 70 - 115 mg/dL [facility] Calcium 10.0 8.4 - 10.2 mg/dL [facility] Anion Gap 11 8 - 18 [facility] BUN/Creatinine Ratio 11 7 - 23 [facility] Osmolality Calculated 293 270 - 300 mOsm/kg [facility] eGFR >60 >60 mL/min/1.7 3 m2 [facility] Blood specimen (specimen) BLOOD SPECIMEN / Unknown 01/15/2016 5:10 AM CDT 01/15/2016 5:15 AM CDT Jose A Marlow MD LAB - CHEMISTRY ORD ERABLES [address] [phone] * XR SKULL 3VW OR LESS (01/09/2016 12:22 PM CDT) Anatomical Region Laterality Modality Head Other Impressions 01/09/2016 2:08 PM CDT IMPRESSION: 1. No acute calvarial fracture. 2. Postoperative appearance of right subdural drain placement. Dictated by Daniel Oconnor MD (associate professor of radiology). I, Dr. BREANNA FERNANDEZ M.D. have personally [...] drain placement. Dictated by Daniel Oconnor MD (associate professor of radiology). I, Dr. BREANNA FERNANDEZ M.D. have personally reviewed and interpreted thisexamination/study. This report was electronically signed by BREANNA FERNANDEZ M.D. on 01/09/20162:08 PM . Jose A Marlow MD DIAGNOSTIC IMAGING ORDERABLES * (ABNORMAL) TEG PLATELET MAPPING (01/09/2016 10:05 AM CDT) G-Clot Strength 9.8 4.5 - 11.0 d/sc [facility] Pathology Review TEG Other [facility] Interpretation TEG See Comment [facility] React-Time 4.7(L) 5.0 - 10.0 MIN [facility] K-Time 1.1 1.0 - 3.0 MIN [facility] Angle A-BB 73.6(H) 53.0 - 72.0 Degrees [facility] MA (CK) BB 66.2 50.0 - 70.0 mm [facility] LY30 2.2 0.0 - 8.0 % [facility] CI-Coagulation Index 2.4 -3.0 - 3.0 [facility] MA-ADP 35.7 Reference Range: None mm [facility] MA AA-BB 16.0 Reference Range: None mm [facility] % ADP Inhibition 60.2 Reference Range:None % [facility] % AA Inhibition 99.0 Reference Range: None % [facility] Blood specimen (specimen) BLOOD SPECIMEN / Unknown 01/09/2016 10:05 AM CDT 01/09/2016 10:16 AM CDT Narrative [facility] - 01/09/2016 11:37 AM [...] MD LAB - BLOOD BANK OR DERABLES [facility] [address] * TYPE + SCREEN PANEL (01/09/2016 5:41 AM CDT) Typem O POS [facility] Antibody Screen NEG [facility] Blood specimen (specimen) 01/09/2016 5:41 AM CDT 01/09/2016 5:56 AM CDT Leopoldo Rai MD LAB - BLOOD BANK ORD ERABLES Performing Organization Address City/[facility] Co de Phone Number [facility] [address] * (ABNORMAL) COMPREHENSIVE METABOLIC PANEL (01/09/2016 5:41 AM CDT) Pathologist [facility] BUN 5(L) 7 - 26 mg/dL [facility] Creatinine 1.1 0.6 - 1.2 mg/dL [facility] Sodium 141 136 - 145 mmol/L [facility] Potassium 3.9 3.5 - 4.5 mmol/L [facility] Chloride 109(H) 98 - 107 mmol/L [facility] CO2 24 22 - 29 mmol/L [facility] Glucose 87 70 - 115 mg/dL [facility] Calcium 9.4 8.4 - 10.2 mg/dL [facility] Protein Total 6.4 6.0 - 8.3 g/dL [facility] Albumin 3.2(L) 3.4 - 5.0 g/dL [facility] Bilirubin Total 0.7 0.2 - 1.2 mg/dL [facility] Alkaline Phosphatase 75 40 - 150 Units/L [facility] ALT 8 0 - 55 Units/L [facility] AST 12 5 - 34 Units/L [facility] Anion Gap 12 8 - 18 [facility] BUN/Creatinine Ratio 5(L) 7 - 23 [facility] Osmolality Calculated 289 270 - 300 mOsm/kg [facility] Albumin/Globulin Ratio 1.0(L) 1.1 - 2.3 [facility] eGFR >60 >60 mL/min/1.7 3 m2 [facility] Blood specimen (specimen) BLOOD SPECIMEN / Unknown 01/09/2016 5:41 AM CDT 01/09/2016 5:50 AM CDT Leopoldo Rai MD LAB - CHEMISTRY ORDE RABLES Performing Organization Address [facility]/ZIP Co de Phone Number [address] [phone] * PTT [facility] (01/09/2016 5:41 AM CDT) APTT 28.1 23.0 - 38.4 Seconds [facility] Comment:Suggested therapeuti c range for full dose I.V. heparin therapy for venous thromboembolism is 66.0-91.0 seconds. Blood specimen (specimen) BLOOD SPECIMEN / Unknown 01/09/2016 5:41 AM CDT 01/09/2016 5:50 AM CDT Narrative [facility] - 01/09/2016 6:02 AM CDT Is patient on Heparin, Argatroban or Dabigatran?->N Leopoldo Rai MD LAB - COAGULATION OR DERABLES Performing Organization Address [facility] Co de Phone Number [address] [phone] * PT-INR [facility] (01/09/2016 5:41 AM CDT) PT 12.9 12.1 - 14.8 Seconds [facility] INR 1.0 See Comment [facility] Comment: Suggested therapeutic range for low-intensity coumadin therapy for venous thromboembolism prophylaxis is an INR of 2.0-3.0. ??For high risk patients (Mitral Valve Prosthesis, Atrial Fibrillation, history of TIA/stroke), suggested prophylactic therapeutic range is an INR of 2.5-3.5. Blood specimen (specimen) BLOOD SPECIMEN / Unknown 01/09/2016 5:41 AM CDT 01/09/2016 5:50 AM CDT Narrative [facility] - 01/09/2016 6:01 AM CDT Is patient on Heparin, Argatroban or Dabigatran?->N Leopoldo Rai MD LAB - COAGULATION OR DERABLES [facility] [address] [place] [address], [facility] [phone] Care Teams Blanket Inspector Relationship Specialty Start Date End Date Cody Rice, [employer]-LIBRARIAN SPECIAL LIBRARY [address] [place] [address] PCP - General Nurse Practitioner 11/18/23
--- OUTSIDE RECORDS SUMMARY | 2024-05-13 15:17 | XMS_ITS | Encounter Summary ---
Author Organization [facility] Address [address] [place] [address] Care Team Providers Care Pump House Operator Name Role Phone Cody Rice APRN-COOK HEL[employer]UIT Primary Care Pro vider Encounter Details Date Type Department Care Team (Late st Contact Info) Description 11/18/2023 Lab Requisition [facility] - [facility]ology Lab [address] [place] [address] Bassem Newman MD [address] [place] [address] Illness, unspecified Social History Tobacco Use Types [...] AM CDT) Final Diagnosis Larynx, biopsy (OSC: [id number]; 08/12/2023 ): - Squamous cell carcinoma, invasive, moderately differentiated 12/02/2023 3:11 PM CDT [facility] Microscopic Description and Comment Microscopic examination substantiates the final diagnosis. The focal complexity of architecture is sufficient for a diagnosis of invasive squamous cell carcinoma, although there is also a large amount of yuwicilof-bc-nuel. This specimen was submitted as larynx , and therefore no p16 stain was performed 12/02/2023 3:11 PM [facility] Clinical History 53 year old man with large supraglottic / base of tongue mass emanating from the vallecula . 12/02/2023 3:11 PM [facility] Materials Received Received are 3 H and E stained slide(s) labeled [id number] along with a copy of the outside pathology report. [place] [address]. All original materials are returned to the referring institution, along with a copy of our final report. 12/02/2023 3:11 PM [facility] Addendum 1 Immunohistochemistry for p16 is negative in lesional cells with appropriately reactive on slide positive control. 12/02/2023 3:11 PM [facility] Addendum electronically signed by Loren Mendoza MD on 12/02/2023 at 3:10 PM Pathologist Location at [facility] 12/02/2023 3:11 PM [facility] Disclaimer The performance characteristics of all immunohistochemical and indirect immunofluorescence stains (if any) cited in this report were determined by the Histopathology Laboratory of [facility]. Some of these tests were developed [...] the attending (teaching) pathologist. 12/02/2023 3:11 PM [facility] Case Report Surgical Pathology Report ? Case: [id number] ? Authorizing Provider: ??Bassem Newman MD ?Collected: [...] PATHOLOGY/CYTO LOGY ORDERABLES [facility] [address] [facility] [address], [facility] [phone] documented in this encounter Visit Diagnoses Diagnosis Illness, unspecified documented in this encounter Care Teams Pump House Operator Relationship Specialty Start Date End Date Cody Rice APRN-RONAL [address] [place] [address] PCP - General Nurse Practitioner 11/18/23 documented as of this encounter
--- OUTSIDE RECORDS SUMMARY | 2024-05-13 15:17 | XMS_ITS | Referral Summary ---
Author Organization [facility] Address [address] [place] [address] Care Team Providers Care Coin Purse Framer Name Role Phone Cody Rice APRN-LATEX RIBBON MACHINE OPERATOR Primary Care Pro vider Source Comments [facility],non-owned Affiliates and Associated Physician Practices is amultiple site organization consisting of ambulatory clinics and hospital sitesin [place], [place], [place] and [place]. This disclosure is being madepursuant to the Care Everywhere program and may not contain all information available regarding this patient. Last updated 18.[facility] Allergies No known active allergies Medications * [...] q6h PRN (Pain). 01/09/2016 Active HYDROcodone-acetami nophen ([place]) 5-325 MG tablet Take 1 (one) tablet [...] CDT) BUN 12 7 - 26 mg/dL [facility] Creatinine 1.1 0.6 - 1.2 mg/dL [facility] Sodium 142 136 - 145 mmol/L [facility] Potassium 3.9 3.5 - 4.5 mmol/L [facility] Chloride 111(H) 98 - 107 mmol/L [facility] CO2 24 22 - 29 mmol/L [facility] Glucose 92 70 - 115 mg/dL [facility] Calcium 10.0 8.4 - 10.2 mg/dL [facility] Anion Gap 11 8 - 18 [facility] BUN/Creatinine Ratio 11 7 - 23 [facility] Osmolality Calculated 293 270 - 300 mOsm/kg [facility] eGFR >60 >60 mL/min/1.7 3 m2 [facility] Blood specimen (specimen) BLOOD SPECIMEN / Unknown 01/15/2016 5:10 AM CDT 01/15/2016 5:15 AM CDT Jose A Marlow MD LAB - CHEMISTRY ORD ERABLES [facility] [address] [phone] from Last 3 Months or Most Recently Relevant to Health Maintenance Administered Medications Care Teams Coin Purse Framer Relationship Specialty Start Date End Date Cody Rice, ELECTRICAL SERVICE TECHNICIAN-LATEX RIBBON MACHINE OPERATOR [address] [address] PCP - General Nurse Practitioner 11/18/23
--- OUTSIDE RECORDS SUMMARY | 2024-05-13 15:17 | XMS_ITS ---
Author Organization [facility] Address [address] [place] [address] Phone Care Team Providers Care Public Stenographer Name Role Phone Lauro Peck MD Unavailable [phone] Julian Fitch MD Unavailable [phone] Cody Rice APRN, [facility] Primary Care Pr ovider Bassem Newman MD Unavailable [phone] Danni Babb Unavailable Unavailable Ambulatory Complex Care Management Status:Enrolled (Active) Start date:06/10/2023 Enrollment date:06/13/2023 Enrollment reason:Identified using referral data Current support & services provided:Oim Architect Care Managed Related social drivers of health:Intimate Partner Violence, Social Connections, Alcohol Use, Tobacco Use, Financial Resource Strain,Stress, Physical Activity, Food Insecurity, Transportation Needs, Housing Stability, Utilities Case Team Name Relationship Phone Danni Babb Health Entry Level Sales Consultant Continued Care and Services Coordination
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
--- OUTSIDE RECORDS SUMMARY | 2024-05-13 15:18 | XMS_ITS | Encounter Summary ---
Author Organization [facility] Address [address] [place] [address] Phone Care Team Providers Care Principal Software Architect Name Role Phone Ant Alba MD Primary Care Provider [phone] Syeda Mancilla RN Unavailable Unavailable Lia Chamberlain SAS ARCHITECT Unavailable Unavailab Lauro Dennis MD Unavailable [phone] Julian Fitch MD Unavailable [phone] Cody Rice APRN, HYDROELECTRIC MACHINERY MECHANIC Primary Care Pr ovider Bassem Newman MD Unavailable [phone] Danni Babb Unavailable Unavailable Reason for Visit * Reason Comments Medication Refill Encounter Details Date Type Department Care Team (Late st Contact Info) Description 08/23/2022 Refill [facility] [address] [place] [phone] Ant Alba MD [address] [place] [address] Medication Refill Social History Tobacco Use Types [...] (Latest Contact Info) Description 05/14/2024 2:30 PM SPECTROGRAPHIC ANALYST Office Visit [facility] [address] [place] [phone] Paulina Forde, SUBSTANCE ABUSE PREVENTION COORDINATOR, HYDROELECTRIC MACHINERY MECHANIC [address] [place] [address] Discharge Disposition: Discharged to home or Selfcare 05/17/2024 1:45 PM SPECTROGRAPHIC ANALYST Physical Therapy [facility] [address], [address] [phone] Kaylen Iglesias, PT [place] Discharge Disposition: Discharged to home or Selfcare documented as of this encounter Visit Diagnoses Not on filedocumented in this encounter Additional Health Concerns Infection Onset Date Last Indicated Resolved Time COVID - 19 08/25/2022 08/25/2022 09/04/2022 12:1 6 AM CDT COVID - 19 04/26/2023 04/26/2023 05/06/2023 12:1 6 AM SPECTROGRAPHIC ANALYST R/O-TB 07/12/2023 07/29/2023 10/01/2023 12:1 6 AM CDT COVID - 19 07/16/2023 07/16/2023 07/16/2023 12:4 1 PM CDT COVID - 19 04/06/2024 04/06/2024 04/16/2024 12:1 6 AM SPECTROGRAPHIC ANALYST Assessment Noted Time PHQ-9 Depression Total Score: 1 01/09/20 11:26 AM CDT documented as of this encounter Care Teams Principal Software Architect Relationship Specialty Start Date End Date Ant Alba MD [address] [place] [address] PCP - General Family Medicine 10/24/19 10/25/23 Cody Rice, SUBSTANCE ABUSE PREVENTION COORDINATOR, HYDROELECTRIC MACHINERY MECHANIC #[address] [address] PCP - General Advanced Practice Nurse 11/10/23 Syeda Mancilla RN [place] Nurse Certified Maintenance Welder 06/13/23 12/28/23 Lia Chamberlain LSW [place] Drafter Electrical Certified Maintenance Welder 06/24/23 03/21/24 Lauro Peck MD [address] [place] [address] Consulting Physician Medical Oncology 10/27/23 Julian Fitch MD [address] [place] [address] Consulting Physician Radiation Oncology 10/27/23 Bassem Newman MD [address] [address] Consulting Physician Otolaryngology & Facial Plastic Surgery 11/14/23 Danni Babb Health Machine Sorter 04/10/24 documented as of this encounter
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
--- NOTE | 2024-05-13 15:20 | ED.GENADULT ---
HPI - General Adult General Chief complaint: Unspecified Stated complaint: swelling to throat no difficulties breathing Time Seen by Provider: 05/13/24 15:05 History of Present Illness HPI narrative: This is a 54-year-old male with a history of laryngeal cancer presenting with neck pain. Patient said that he swallowed a small bite of cookie and then developed pain in his neck. His neck is chronically swollen from laryngeal cancer. His voice is worse than baseline. He is not having any pain when he swallows now. He is not having difficulty breathing. He has no signs of allergic reaction such as hives nausea vomiting diarrhea or lightheadedness. He is requesting tramadol for pain. He is also requesting a prescription to go home with. He has an appointment to see his oncologist tomorrow. Related Data Allergies Allergy/AdvReac Type Severity Reaction Status Date / Time No Known Allergies Allergy Unverified 01/15/16 16:04 PENDING SALE TO [facility] Past Medical History Medical History Laryngeal cancer Exam Narrative: APPEARANCE: No apparent distress. Hoarse voice, swallowing his own secretions Head: atraumatic EYES: EOMI, NOSE: Atraumatic NECK/throat: Submandibular swelling, No erythema of the posterior oropharynx RESPIRATORY: No increased rate of breathing clear to auscultation, speaking in full sentences CARDIOVASCULAR: RRR, ABDOMINAL: Non-distended soft nontender MUSCULOSKELETAl: No obvious deformities NEURO: Alert. Moving 4/4 extremities SKIN:: Warm, dry. Normal color, no hives PSYCHIATRIC: Normal affect Course Vital Signs Vital signs: Vital Signs Temperature 97.4 F L 05/13/24 12:27 Pulse Rate 41 L 05/13/24 12:27 Respiratory Rate 16 05/13/24 12:27 Blood Pressure 114/91 H 05/13/24 12:27 Pulse Oximetry 100 05/13/24 12:27 Oxygen Delivery Room Air 05/13/24 12:27 Temperature 97.4 F L 05/13/24 12:27 Pulse Rate 41 L 05/13/24 12:27 Respiratory Rate 16 05/13/24 12:27 Blood Pressure 114/91 H 05/13/24 12:27 Pulse Oximetry 100 05/13/24 12:27 Oxygen Delivery Room Air 05/13/24 12:27 Medical Decision Making MDM Narrative Medical decision making narrative: -Course: 54-year-old male with no laryngeal cancer presenting with neck pain after he ate a cookie. He has no clinical signs of allergic reaction. Does have swelling below his submandibular region any is a worse voice but these appear to be chronic. No difficulty breathing or swallowing. No respiratory distress. Patient is requesting pain medication. Patient has multiple questions about his laryngeal cancer which I think will be better answer by his oncologist at his appointment tomorrow. Patient discharged with return precautions. -DDX includes but is not limited to: Laryngeal cancer, Jez's angina, allergic reaction -Co-morbidities complicating care: Laryngeal cancer -Interventions: Tramadol -Shared decision making / Disposition: Discharge Vital Signs Vital Signs: Vital Signs Temperature 97.4 F L 05/13/24 12:27 Pulse Rate 41 L 05/13/24 12:27 Respiratory Rate 16 05/13/24 12:27 Blood Pressure 114/91 H 05/13/24 12:27 Pulse Oximetry 100 05/13/24 12:27 Oxygen Delivery Room Air 05/13/24 12:27 Temperature 97.4 F L 05/13/24 12:27 Pulse Rate 41 L 05/13/24 12:27 Respiratory Rate 16 05/13/24 12:27 Blood Pressure 114/91 H 05/13/24 12:27 Pulse Oximetry 100 05/13/24 12:27 Oxygen Delivery Room Air 05/13/24 12:27 Discharge Plan Discharge Clinical Impression: H/O laryngeal cancer Patient Disposition: Home, Self-Care Condition: Stable Instructions: Antibiotic Form, Cancer Pain (ED) Additional Instructions: Please use your home dose of tramadol for pain control. Please follow-up with your oncologist at your appointment tomorrow. If you develop severe throat pain, difficulty breathing, difficulty swelling on secretions he can return to the ED for re-evaluation. Patient Language: Mohawk Follow-up/Referrals: PHYSICIAN,CHANNEL INSTALLER [Primary Care Provider] -
[2024-05-13] MEDS: traMADol HCL (*CRX) 50 MG TABLET PO (15:44)
[2024-05-13 15:54] VITALS: BP 119/82; PULSE 99; RESP 16; O2SAT 98
== END 2024-05-13 16:00 | disposition home or self-care (01) ==
PROVIDERS: Emergency Provider Emergency Medicine
DX: C32.9 Malignant neoplasm of larynx, unspecified (principal)
CPT/HCPCS: 96372; 96374; 96375; 99284; A9270